=== PATIENT | female | born 1935 | race Caucasian/White ===

== ENCOUNTER 2017-10-13 20:41 | Inpatient (IN) | payer OTHER, BC ==
--- NOTE | 2017-10-13 20:46 | PDOC ---
Rapid Medical Evaluation Time Seen by Provider: 10/13/17 20:45 Medical Evaluation: 10/13/17 20:45 I have performed a brief in-person evaluation of this patient. The patient presents with a chief complaint of: Progressive fatigue, dizziness, malaise, diaphoresis x several months and sent in by Dr Low for concern of recurrence of her NHL which was tx in 2011. Told by Dr Low that "her protein levels are very high" per son. 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 Discharge Disposition - Diagnosis Fatigue Qualifiers: Fatigue type: unspecified Qualified Code(s): R53.83 - Other fatigue - Referrals - Patient Instructions - Post Discharge Activity
[2017-10-13 21:08] LABS: BASO % 0.5 % (0-2.0); EOS % 0.9 % (0-4.5); HEMATOCRIT 28.9 % (32.4-45.2); HEMOGLOBIN 9.6 GM/dL (10.7-15.3); LYMPH % 33.4 % (8-40); MCH 29.2 pg (25.7-33.7); MCHC 33.2 g/dl (32.0-36.0); MEAN CELL VOLUME 87.7 fl (80-96); MEAN PLT VOLUME 7.9 fl (7.5-11.1); MONO % 9.2 % (3.8-10.2); PLATELET COUNT 247 K/MM3 (134-434); WHITE BLOOD COUNT 5.6 K/mm3 (4.0-10.0)
[2017-10-13 21:46] LABS: ALBUMIN 2.7 g/dl (3.4-5.0); ANION GAP 9 (8-16); BILIRUBIN,TOTAL 0.4 mg/dL (0.2-1.0); BLOOD UREA NITROGEN 40 mg/dL (7-18); CALCIUM 9.6 mg/dL (8.5-10.1); CHLORIDE 105 mmol/L (98-107); CO2 23 mmol/L (21-32); CREATININE 1.2 mg/dL (0.55-1.02); GLUCOSE,RANDOM 108 mg/dL (74-106); POTASSIUM 4.5 mmol/L (3.5-5.1); SGOT/AST 17 U/L (15-37); SGPT/ALT 21 U/L (12-78); SODIUM 137 mmol/L (136-145)
[2017-10-13 21:49] LABS: ALK PHOS 75 U/L (45-117)
[2017-10-13 21:52] LABS: LIPASE 207 U/L (73-393); TOT PROT 11.4 g/dl (6.4-8.2)
--- NOTE | 2017-10-13 22:11 | PDOC ---
History of Present Illness - General Chief Complaint: Weakness Stated Complaint: SENT BY PCP Time Seen by Provider: 10/13/17 20:45 History Source: Patient, Family - History of Present Illness Initial Comments: 10/13/17 22:02 82 year old female with PMH non-hodgkin lymphoma presents to ED complaining of lightheadedness, feeling offbalance, fatigue and sweats. She states that these symptoms are similar to her previous symptoms when her non-hodgkin's lymphoma developed. She was sent to ED by her oncologist Dr. Low for elevated protein and concerning symptoms for reoccurence of her non-hodgkin's lymphoma. Oncology, Dr. Low - [phone] Aguilar - [phone] Past History - Past Medical History Allergies/Adverse Reactions: Allergies Allergy/AdvReac Type Severity Reaction Status Date / Time No Known Allergies Allergy Verified 10/13/17 20:49 Cancer: Yes (Lymphoma) COPD: No - Suicide/Smoking/Psychosocial Hx Smoking History: Never smoked Review of Systems - Review of Systems Able to Perform ROS?: Yes Comments:: 10/13/17 22:04 General: admits to sweats, generalized weakness, fatigue. denies fever. HEENT: denies sore throat, rhinorrhea, ear pain. Heart: denies chest pain, palpitations, syncope, lower extremity swelling. Respiratory: denies shortness of breath, cough, sputum production, hematemesis. Abdomen: denies abdominal pain, nausea, vomiting, diarrhea, constipation, blood in stool. : denies dysuria, urinary frequency, hematuria. Musculoskeletal: denies joint pain, muscle pain, joint swelling. Neurological: admits to dizziness and feeling off-balance. denies headache, numbness, tingling. Skin: denies rash, laceration, abrasion. *Physical Exam - Vital Signs Last Vital Signs Temp Pulse Resp BP Pulse Ox 98.4 F 94 H 18 115/77 96 10/13/17 20:45 10/13/17 20:45 10/13/17 20:45 10/13/17 20:45 10/13/17 20:45 - Physical Exam Comments: 10/13/17 22:36 General: awake, alert and oriented X3, no apparent distress HEENT: head is normocephalic, atraumatic. EOMI. PERRLA. Neck: supple without lymphadenopathy Heart: regular rhythm. no murmurs, rubs or gallops. Lungs: clear to auscultation bilaterally. no crackles, rhonchi or wheezing. no stridor. Abdomen: soft, nontender. normal bowel sounds. no rebound, guarding, masses. Extremities: Peripheral pulses intact. No leg edema. Neurological: Alert. Oriented x3. CN 2-12 grossly intact. Moves all four extremities Heart Score/ECG Review - ECG Impressions Comment:: 10/13/17 23:11 Rate 83, regular rhythm, slight left axis, no acute ST changes. ED Treatment Course - LABORATORY CBC & Chemistry Diagram: 10/13/17 20:58 10/13/17 20:58 - ADDITIONAL ORDERS Additional order review: Laboratory Results 10/13/17 20:58 Sodium 137 Potassium 4.5 Chloride 105 Carbon Dioxide 23 Anion Gap 9 BUN 40 H Creatinine 1.2 H Creat Clearance w eGFR 42.80 Random Glucose 108 H Calcium 9.6 Total Bilirubin 0.4 AST 17 ALT 21 Alkaline Phosphatase 75 Creatine Kinase 31 Troponin I < 0.02 Total Protein 11.4 H Albumin 2.7 L Lipase 207 10/13/17 20:58 RBC 3.30 L MCV 87.7 MCHC 33.2 RDW 18.0 H MPV 7.9 Neutrophils % 56.0 Lymphocytes % 33.4 Monocytes % 9.2 Eosinophils % 0.9 Basophils % 0.5 Medical Decision Making - Medical Decision Making 10/13/17 22:[address] Ramos, who is male impersonator for Dr. Low. She requests labwork to be done now. She wants IV fluids now for her decreased creatinine clearance. She states when that improves, she will order CT abdomen, pelvis, chest with contrast. She requests admission to the hospitalist and to place Dr. Low as consult. 10/13/17 22:34 Pt will be admitted. Microblog sent. Awaiting response. 10/13/17 23:05 Initial Vital Signs Temp Pulse Resp BP Pulse Ox 98.4 F 94 H 18 115/77 96 10/13/17 20:45 10/13/17 20:45 10/13/17 20:45 10/13/17 20:45 10/13/17 20:45 Laboratory Results - last 24 hr 10/13/17 10/13/17 20:58 20:58 WBC 5.6 RBC 3.30 L Hgb 9.6 L Hct 28.9 L MCV 87.7 MCH 29.2 MCHC 33.2 RDW 18.0 H Plt Count 247 MPV 7.9 Absolute Neuts (auto) 3.2 Neutrophils % 56.0 Lymphocytes % 33.4 Monocytes % 9.2 Eosinophils % 0.9 Basophils % 0.5 Nucleated RBC % 0 Sodium 137 Potassium 4.5 Chloride 105 Carbon Dioxide 23 Anion Gap 9 BUN 40 H Creatinine 1.2 H Creat Clearance w eGFR 42.80 Random Glucose 108 H Calcium 9.6 Total Bilirubin 0.4 AST 17 ALT 21 Alkaline Phosphatase 75 Creatine Kinase 31 Troponin I < 0.02 Total Protein 11.4 H Albumin 2.7 L Lipase 207 10/13/17 23:18 Spoke with IM resident accepting the patient for Dr. Kapadia. 10/13/17 23:45 Pt reassessed, no complaints. States she does not feel the need to urinate yet. Pending UA sample. 10/13/17 23:55 Pt signed out to attending, Dr. Chowdhury. *DC/Admit/Observation/Transfer Diagnosis at time of Disposition: Fatigue Qualifiers: Fatigue type: unspecified Qualified Code(s): R53.83 - Other fatigue - Discharge Dispostion Condition at time of disposition: Stable Decision to Admit order: Yes - Referrals - Patient Instructions - Post Discharge Activity
[2017-10-13] MEDS ORDERED: SODIUM CHLORIDE 1,000 ML IV STA (22:18)
--- NOTE | 2017-10-13 22:30 | PDOC ---
Attending Attestation - HPI HPI: 10/13/17 23:51 Patient is an 82 year old female with a significant past medical history of non- hodgkin lymphoma, who was sent by oncologist to the ED with complaints of elevated protein levels. Patient reports seeing her oncologist who advised her to come into the ED for further evaluation after discovering she had elevated protein levels. She reports experiencing lightheadedness as well as associated fatigue and increased sweating. Denies chest pain, Sob. Denies nausea, vomiting. Denies fevers, chills. Denies contact with sick individuals, out of state travelling. Denies head trauma, vision changes, loss of consciousness. Denies trauma to affected area. Denies dysuria, hematuria. Denies constipation, diarrhea. Denies any other symptoms. Allergies: None Social history: No smoking. No alcohol. No illicit drugs. Surgical history: None PMD: Dr. Low <Vic Gonzalez - Last Filed: 10/13/17 23:51> - Resident Resident Name: Ilda Sanabria - ED Attending Attestation I have performed the following: I have examined & evaluated the patient, The case was reviewed & discussed with the resident, I agree w/resident's findings & plan, Exceptions are as noted - Physicial Exam PE: 10/14/17 19:14 physical exam*Physical Exam General Appearance: Yes: Appropriately Dressed. No: Apparent Distress, Intoxicated HEENT: positive: EOMI, RAISA, Normal ENT Inspection, Normal Voice, TMs Normal, Pharynx Normal. negative: Pale Conjunctivae, Photophobia, Scleral Icterus (R), Scleral Icterus (L) Neck: positive: Trachea midline, Normal Thyroid, Supple. negative: Tender, Rigid, Carotid bruit, Stridor, Lymphadenopathy (R), Lymphadenopathy (L), Thyromegaly Respiratory/Chest: positive: Lungs Clear, Normal Breath Sounds. negative: Chest Tender, Respiratory Distress, Accessory Muscle Use, Labored Respiration, RES, Crackles, Rales, Rhonchi, Stridor, Wheezing, Dullness Cardiovascular: positive: Regular Rhythm, Regular Rate, S1, S2. negative: Edema , JVD, Murmur, Bradycardia, Tachycardia Vascular Pulses: Dorsalis-Pedis (R): 2+, Doralis-Pedis (L): 2+ Gastrointestinal/Abdominal: positive: Normal Bowel Sounds, Flat, Soft. negative : Tender, Organomegaly, Pulsatile Mass, Increased Bowel Sounds, Decreased BS, Distended, Guarding, Rebound, Hernia, Hepatomegaly, Spleenomegaly Lymphatic: negative: Adenopathy, Tenderness Musculoskeletal: positive: Normal Inspection. negative: CVA Tenderness, Decreased Range of Motion Extremity: positive: Normal Capillary Refill, Normal Inspection, Normal Range of Motion, Pelvis Stable. negative: Tender, Pedal Edema, Swelling, Erythema Integumentary: positive: Normal Color, Dry, Warm. negative: Cyanotic, Erythema , Jaundice, Rash Neurologic: positive: dross puller II-XII NML intact, Fully Oriented, Alert, Normal Mood/ Affect, Motor Strength 5/5. negative: EOM Palsy, Facial Droop, Sensory Deficit - Medical Decision Making 10/14/17 19:15 pt admitted for further evaluation and care <Radames Chowdhury - Last Filed: 10/14/17 19:15>
[2017-10-13 23:37] LABS: LDH 154 U/L (84-246); URIC ACID 4.5 mg/dL (2.6-7.2)
--- NOTE | 2017-10-14 00:24 | PN ---
Teaching Attending Note Name of Resident: Earnest Talley ATTENDING PHYSICIAN STATEMENT I saw and evaluated the patient. I reviewed the resident's note and discussed the case with the resident. I agree with the resident's findings and plan as documented. SUBJECTIVE: Patient is an 82 year old woman with a past medical history of non-hodgkins lymphoma, who was sent by oncologist to the ER with complaints of elevated protein levels. Patient reports seeing her oncologist who advised her to come into the ER for further evaluation after discovering she had elevated protein levels. She reports experiencing gait imbalance as well as associated fatigue and increased sweating. These symptoms emerge only when she is standing and are absent when lying down. She dates her gait abnormality to the time in she got gentamicin for osteomyelitis. Has never had a full workup for her gait problems. OBJECTIVE: Alert and in no acute distress. Vital Signs Period Temp Pulse Resp BP Sys/Francis Pulse Ox Last 24 Hr 98.4 F 94 18 115/77 96 HEENT: No Jaundice, eye redness or discharge, PERRLA, EOMI. Normocephalic, atraumatic. External ears are normal and hearing is grossly intact. No nasal discharge. Neck: Supple, nontender. No palpable adenopathy or thyromegaly. No JVD Chest: Good effort. Clear to auscultation and percussion. Heart: Regular. No S3, rub or murmur Abdomen: Not distended, soft, nontender and no HSM. No rebound or guarding. Normoactive bowel sounds. Ext: Peripheral pulses intact. No leg edema. Skin: Warm and dry. No petechiae, rash or ecchymosis. Neuro: Alert. Oriented x3. CN 2-12 grossly intact. Sensation grossly intact in all four extremities and DTR are symmetric. Abnormal Lab Results 10/13/17 10/13/17 10/13/17 20:58 20:58 23:07 RBC 3.30 L Hgb 9.6 L Hct 28.9 L RDW 18.0 H ESR 108 H BUN 40 H Creatinine 1.2 H Random Glucose 108 H Total Protein 11.4 H Albumin 2.7 L Urine Protein Ur Leukocyte Esterase 10/14/17 00:17 RBC Hgb Hct RDW ESR BUN Creatinine Random Glucose Total Protein Albumin Urine Protein 1+ H Ur Leukocyte Esterase 3+ H ASSESSMENT AND PLAN: 1. Hyperglobulinemia - May signal recurrence of non-hodgkin's lymphoma. Blood sent for serum protein analyses and immunologic studies. Will get a CT scan with contrast of brain, chest, abdomen and pelvis. Though gait abnormality may be indeed due to remote gentamicin ototoxicity, brain CT will exclude any intracranial lesion. Consult PT for gait abnormality and consult her oncologist. 2. SHEFALI - She has risk factors for CKD, but elevated urine SG suggest SHEFALI. Will hydrate her orally and intravenously to correct any underlying dehydration. Once azotemia improves, then she may be able to get contrast CT study. Will consult nephrology and avoid nephrotoxic agents such as NSAIDS, aminoglycosides , and certain alternative medicine products. 3. Hypoalbuminemia - Possibly due to combined effects of malnutrition, proteinuria and inflammation associated with lymphoma. Will ensure adequate dietary protein intake and also consult water proofer. 4. Anemia - May be partly due to chronic inflammation associated with lymphoma. Will do basic anemia work up including serial stool guaiacs, reticulocyte count and iron studies. 5. Pyuria - She is asymptomatic. Will monitor closely but withhold antibiotics at this time. 6. DVT prophylaxis - Heparin 5000u sq tid. 7. Advance directives - Full code
[2017-10-14 00:26] LABS: URINE APPEARANCE SLCLOUDY; URINE BILIRUBIN NEGATIVE (<2.0 mg/dL); URINE COLOR YELLOW; URINE GLUCOSE (UA) NEGATIVE (NEGATIVE); URINE KETONE NEGATIVE (NEGATIVE); URINE NITRITE NEGATIVE (NEGATIVE); URINE UROBILINOGEN NEGATIVE mg/dL (0.2-1.0)
[2017-10-14 00:27] LABS: URINE LEUK ESTERASE 3+ (NEGATIVE); URINE PROTEIN 1+ (NEGATIVE)
[2017-10-14 00:31] LABS: EPI CELLS RARE /HPF (FEW); URINE BACTERIA RARE /hpf (NONE SEEN); URINE HYALINE CAST 17 /lpf; URINE MUCUS RARE
[2017-10-14 01:33] LABS: INR 1.19 (0.82-1.09); PROTHROMBIN TIME (PATIENT) 13.5 SEC (9.7-13.0)
[2017-10-14 01:36] LABS: ACTIVATED PTT 34.6 SECONDS (25.2-36.5)
[2017-10-14] MEDS ORDERED: SODIUM CHLORIDE 1,000 ML IV SCH (02:15)
[2017-10-14] MEDS ORDERED: MECLIZINE HCL 25 MG TABLET (FP) PO PRN (02:23)
[2017-10-14] MEDS: HEPARIN NA (PORCINE) 5,000 UNITS/ML 1ML VIAL SQ SCH ×3 (02:40→17:12)
--- NOTE | 2017-10-14 03:03 | HP ---
CHIEF COMPLAINT:kike PCP: Dr. Aguilar - [phone] HISTORY OF PRESENT ILLNESS: 82 y/o F with PMH non-hodgkin lymphoma presents to ED complaining of lightheadedness, feeling off balance, and fatigue. She states that these symptoms are similar to her previous symptoms when her non-hodgkin's lymphoma developed back in 2003. She was sent to ED by her oncologist Dr. Low for elevated protein and concerning symptoms for reoccurence of her non-hodgkin's lymphoma. For the past couple of months she has been feelig malaise/fatigued, SANTOS, and dizzy although denies any spinning of room sensation. Says she feels better when she lies down and PCP gave her meclizine which has helped. At baseline she feels unstable since 2003 when she had thoracic vertebral osteo and was x w/ gentamycin, at that time she was incidentally dx w/ NHL via bone biopsy and was followed by Dr. Low through her chemo tx in [id number]. Denies any recent fever, chills, CP, abd pain, night sweats, unexplained weight loss, n/v/d, travel, sick contacts. changes in diet, LEWIS , dyplopia, blood in stool, dysuria, hematuria, polyuria. ER course was notable for: (1)1 L NS (2) (3) Recent Travel: PAST MEDICAL HISTORY: Oncology, Dr. Low - [phone] NHL s/p chemo 2013 hypothyroid dx 3-5 yr ago PAST SURGICAL HISTORY: tonillectomy at age 18 Social History: Smoking:none Alcohol:none Drugs: none Family History: Dad had ALS Allergies No Known Allergies Allergy (Verified 10/13/17 20:49) HOME MEDICATIONS: meclizine 25mg qd prn allopurinol 100mg qd synthroid 75mc qd x6d/wk REVIEW OF SYSTEMS Reviewed in HPI PHYSICAL EXAMINATION Vital Signs - 24 hr 10/13/17 20:45 Temperature 98.4 F Pulse Rate 94 H Respiratory 18 Rate Blood Pressure 115/77 O2 Sat by Pulse 96 Oximetry (%) GENERAL: Awake, alert, and fully oriented, in no acute distress. HEAD: Normal with no signs of trauma. EYES: PERRLA, extraocular movements intact, sclera anicteric, conjunctiva clear. No lid lag. EARS, NOSE, THROAT: nares patent, oropharynx clear without exudates. MMM NECK: Normal range of motion, supple without lymphadenopathy, JVD, or masses. no thyroimegaly LUNGS: crackles in L lung base. Port from chemo tx on R side of chest No wheezes, and no crackles. No accessory muscle use. HEART: RRR, normal S1 and S2 without murmur, rub or gallop. ABDOMEN: Soft, NTND +BS, no guarding, no rebound, no masses. No hepatomegaly or splenomegaly. MUSCULOSKELETAL: Normal range of motion at all joints. No bony deformities or tenderness. No CVA tenderness. UPPER EXTREMITIES: 2+ pulses, warm, well-perfused. No cyanosis. No clubbing. No peripheral edema. LOWER EXTREMITIES: 2+ pulses, warm, well-perfused. No calf tenderness. No peripheral edema. NEUROLOGICAL: Cranial nerves II-XII intact. Normal speech. Narrow shuffling gait. neg romberg PSYCHIATRIC: Cooperative. Good eye contact. Appropriate mood and affect. SKIN: Warm, dry, normal turgor, no rashes or lesions noted, normal capillary refill. Laboratory Results - last 24 hr 10/13/17 10/13/17 10/13/17 20:58 20:58 23:07 WBC 5.6 RBC 3.30 L Hgb 9.6 L Hct 28.9 L MCV 87.7 MCH 29.2 MCHC 33.2 RDW 18.0 H Plt Count 247 MPV 7.9 Absolute Neuts (auto) 3.2 Neutrophils % 56.0 Lymphocytes % 33.4 Monocytes % 9.2 Eosinophils % 0.9 Basophils % 0.5 Nucleated RBC % 0 ESR PT with INR 13.50 H INR 1.19 H PTT (Actin FS) 34.6 Sodium 137 Potassium 4.5 Chloride 105 Carbon Dioxide 23 Anion Gap 9 BUN 40 H Creatinine 1.2 H Creat Clearance w eGFR 42.80 Random Glucose 108 H Uric Acid Calcium 9.6 Total Bilirubin 0.4 AST 17 ALT 21 Alkaline Phosphatase 75 LD Total Creatine Kinase 31 Troponin I < 0.02 C-Reactive Protein Total Protein 11.4 H Albumin 2.7 L Lipase 207 Urine Color Urine Appearance Urine pH Ur Specific D Hanis Urine Protein Urine Glucose (UA) Urine Ketones Urine Blood Urine Nitrite Urine Bilirubin Urine Urobilinogen Ur Leukocyte Esterase Urine WBC (Auto) Urine RBC (Auto) Ur Epithelial Cells Urine Bacteria Hyaline Casts Urine Mucus 10/13/17 10/13/17 10/14/17 23:07 23:07 00:17 WBC RBC Hgb Hct MCV MCH MCHC RDW Plt Count MPV Absolute Neuts (auto) Neutrophils % Lymphocytes % Monocytes % Eosinophils % Basophils % Nucleated RBC % ESR 108 H PT with INR INR PTT (Actin FS) Sodium Potassium Chloride Carbon Dioxide Anion Gap BUN Creatinine Creat Clearance w eGFR Random Glucose Uric Acid 4.5 Calcium Total Bilirubin AST ALT Alkaline Phosphatase LD Total 154 Creatine Kinase Troponin I C-Reactive Protein < 0.3 Total Protein Albumin Lipase Urine Color Yellow Urine Appearance Slcloudy Urine pH 5.0 Ur Specific D Hanis 1.018 Urine Protein 1+ H Urine Glucose (UA) Negative Urine Ketones Negative Urine Blood Negative Urine Nitrite Negative Urine Bilirubin Negative Urine Urobilinogen Negative Ur Leukocyte Esterase 3+ H Urine WBC (Auto) 15 Urine RBC (Auto) 1 Ur Epithelial Cells Rare Urine Bacteria Rare Hyaline Casts 17 Urine Mucus Rare EKG - Rate 83, regular rhythm, no acute ST changes. CXR - wnl ASSESSMENT/PLAN: 82 y/o F with PMH non-hodgkin lymphoma presents to ED complaining of lightheadedness, feeling off balance, and fatigue for the past few months, now being sent by her oncologist Dr. Low for elevated protein and concerning symptoms for reoccurence of her non-hodgkin's lymphoma. Hyperglobulinemia - May signal recurrence of non-hodgkin's lymphoma. -Blood sent for serum protein analyses and immunologic studies. -CT scan with contrast of chest, abdomen and pelvis for NHL eval. Will prehydrate w/ IV NS in setting SHEFALI -CT scan w/ contrast to exclude any intracranial lesion to help evaluate gait abnormality, although may be indeed due to remote gentamicin ototoxicity. -Consult PT for gait abnormality -consult oncologist Dr. Low. SHEFALI - She has risk factors for CKD, but elevated urine SG suggest SHEFALI. -hydrate orally and w/ IV NS to correct any underlying dehydration. -Once azotemia improves, then she may be able to get contrast CT study. -consult nephrology and avoid nephrotoxic agents such as NSAIDS, aminoglycosides , etc... Anemia - possibly 2/2 chronic inflammation associated with lymphoma -w/u serial stool guaiacs, reticulocyte count and iron studies. Pyuria - asymptomatic. -monitor and withhold abx at this time. -rpt UA in the am w/ straight cath Hypoalbuminemia - multifactorial, possibly 2/2 combined effects of malnutrition, proteinuria and inflammation associated with lymphoma. -adequate dietary protein intake and also consult hydraulic press tender. #HCM -c/w home meds for pt's chronic medical problems #FEN -IV NS 100cc/hr -replete lytes as needed -regular diet #DVTppx SQH 5000U tid #Dispo -admit to [facility] [place] -Full code Visit type - Emergency Visit Emergency Visit: Yes ED Registration Date: 10/13/17 Care time: The patient presented to the Emergency Department on the above date and was hospitalized for further evaluation of their emergent condition. - New Patient This patient is new to me today: Yes Date on this admission: 10/14/17 - Critical Care Critical Care patient: No Hospitalist Screening - Colonoscopy Questionnaire Colonoscopy Questionnaire: Colonoscopy Questionnaire - Patient: 50 - 75 years old and never had a screening colonoscopy: Unknown History of colon or rectal polyps, or CA: Unknown History of IBD, Crohn's disease or UC: Unknown History of abdominal radiation therapy as a child: Unknown - Relative: 1 with colon or rectal CA, or polyps at age 60 or younger: Unknown Colon or rectal CA diagnosed at age 45 or younger: Unknown Multiple relatives with colon or rectal CA: Unknown - Outcome: Screening Result: Negative Screen
[2017-10-14] MEDS: SODIUM CHLORIDE 1,000 ML IV SCH ×2 (04:16→23:24)
[2017-10-14] MEDS ORDERED: HEPARIN NA (PORCINE) 5,000 UNITS/ML 1ML VIAL ONE (04:19)
[2017-10-14 06:22] LABS: BASO % 0.7 % (0-2.0); EOS % 2.5 % (0-4.5); HEMOGLOBIN 8.2 GM/dL (10.7-15.3); LYMPH % 41.4 % (8-40); MCH 29.9 pg (25.7-33.7); MCHC 34.1 g/dl (32.0-36.0); MEAN CELL VOLUME 87.7 fl (80-96); MEAN PLT VOLUME 7.7 fl (7.5-11.1); MONO % 13.2 % (3.8-10.2); NEUT % 42.2 % (42.8-82.8); PLATELET COUNT 196 K/MM3 (134-434); RBC 2.74 M/mm3 (3.60-5.2); WHITE BLOOD COUNT 4.8 K/mm3 (4.0-10.0)
[2017-10-14 06:50] LABS: ALBUMIN 2.5 g/dl (3.4-5.0); ANION GAP 8 (8-16); BLOOD UREA NITROGEN 37 mg/dL (7-18); CALCIUM 8.6 mg/dL (8.5-10.1); CHLORIDE 109 mmol/L (98-107); CO2 23 mmol/L (21-32); GLUCOSE,RANDOM 87 mg/dL (74-106); MAGNESIUM 2.2 mg/dL (1.8-2.4); POTASSIUM 3.8 mmol/L (3.5-5.1); SODIUM 140 mmol/L (136-145)
[2017-10-14 06:58] LABS: ALK PHOS 64 U/L (45-117); BILIRUBIN,TOTAL 0.3 mg/dL (0.2-1.0); CREATININE 0.9 mg/dL (0.55-1.02); PHOSPHOROUS 3.7 mg/dL (2.5-4.9); SGOT/AST 14 U/L (15-37); SGPT/ALT 17 U/L (12-78); TOT PROT 9.7 g/dl (6.4-8.2)
[2017-10-14] MEDS: LEVOTHYROXINE NA 75 MCG TABLET (FP) PO SCH (07:06)
--- NOTE | 2017-10-14 08:45 | PN ---
Physical Exam: SUBJECTIVE: Patient is a 82 y/o female with the past medical history of NHL s/p chemo (2013 ) and hypothyroidism who presents with light headedness and feelings of fatigued. Dr. Low sent her in to see if her NHL has reoccurred. Patient has no acute complaints. OBJECTIVE: Vital Signs Period Temp Pulse Resp BP Sys/Francis Pulse Ox Last 24 Hr 98 F-98.4 F 73-94 16-18 115-135/75-79 96-100 GENERAL: The patient is awake, alert, and fully oriented, in no acute distress. NECK: no lymphadenopathy EYES: PERRL, extraocular movements intact LUNGS: Breath sounds equal, clear to auscultation bilaterally HEART: Regular rate and rhythm, S1, S2 without murmur, rub or gallop. ABDOMEN: Soft, nontender, nondistended EXTREMITIES: warm, well-perfused, no edema. PSYCH: Normal mood, normal affect. SKIN: Warm, dry, normal turgor, no rashes or lesions noted Laboratory Results - last 24 hr 10/13/17 10/13/17 10/13/17 20:58 20:58 23:07 WBC 5.6 RBC 3.30 L Hgb 9.6 L Hct 28.9 L MCV 87.7 MCH 29.2 MCHC 33.2 RDW 18.0 H Plt Count 247 MPV 7.9 Absolute Neuts (auto) 3.2 Neutrophils % 56.0 Lymphocytes % 33.4 Monocytes % 9.2 Eosinophils % 0.9 Basophils % 0.5 Nucleated RBC % 0 ESR Retic Count PT with INR 13.50 H INR 1.19 H PTT (Actin FS) 34.6 Sodium 137 Potassium 4.5 Chloride 105 Carbon Dioxide 23 Anion Gap 9 BUN 40 H Creatinine 1.2 H Creat Clearance w eGFR 42.80 Random Glucose 108 H Uric Acid Calcium 9.6 Phosphorus Magnesium Ferritin Total Bilirubin 0.4 AST 17 ALT 21 Alkaline Phosphatase 75 LD Total Creatine Kinase 31 Troponin I < 0.02 C-Reactive Protein Total Protein 11.4 H Albumin 2.7 L Lipase 207 Urine Color Urine Appearance Urine pH Ur Specific [place] Urine Protein Urine Glucose (UA) Urine Ketones Urine Blood Urine Nitrite Urine Bilirubin Urine Urobilinogen Ur Leukocyte Esterase Urine WBC (Auto) Urine RBC (Auto) Ur Epithelial Cells Urine Bacteria Hyaline Casts Urine Mucus Blood Type Antibody Screen 10/13/17 10/13/1718 23:07 23:07 00:00 WBC RBC Hgb Hct MCV MCH MCHC RDW Plt Count MPV Absolute Neuts (auto) Neutrophils % Lymphocytes % Monocytes % Eosinophils % Basophils % Nucleated RBC % ESR 108 H Retic Count 0.79 PT with INR INR PTT (Actin FS) Sodium Potassium Chloride Carbon Dioxide Anion Gap BUN Creatinine Creat Clearance w eGFR Random Glucose Uric Acid 4.5 Calcium Phosphorus Magnesium Ferritin Total Bilirubin AST ALT Alkaline Phosphatase LD Total 154 Creatine Kinase Troponin I C-Reactive Protein < 0.3 Total Protein Albumin Lipase Urine Color Urine Appearance Urine pH Ur Specific [place] Urine Protein Urine Glucose (UA) Urine Ketones Urine Blood Urine Nitrite Urine Bilirubin Urine Urobilinogen Ur Leukocyte Esterase Urine WBC (Auto) Urine RBC (Auto) Ur Epithelial Cells Urine Bacteria Hyaline Casts Urine Mucus Blood Type Antibody Screen 10/14/17 10/14/17 10/14/17 00:17 05:53 05:53 WBC 4.8 RBC 2.74 L Hgb 8.2 L Hct 24.0 L D MCV 87.7 MCH 29.9 MCHC 34.1 RDW 18.0 H Plt Count 196 D MPV 7.7 Absolute Neuts (auto) 2.0 Neutrophils % 42.2 L D Lymphocytes % 41.4 H D Monocytes % 13.2 H Eosinophils % 2.5 D Basophils % 0.7 Nucleated RBC % 0 ESR Retic Count PT with INR INR PTT (Actin FS) Sodium 140 Potassium 3.8 Chloride 109 H Carbon Dioxide 23 Anion Gap 8 BUN 37 H Creatinine 0.9 Creat Clearance w eGFR 59.65 Random Glucose 87 Uric Acid Calcium 8.6 Phosphorus 3.7 Magnesium 2.2 Ferritin 14.2 Total Bilirubin 0.3 AST 14 L ALT 17 Alkaline Phosphatase 64 D LD Total Creatine Kinase Troponin I C-Reactive Protein Total Protein 9.7 H Albumin 2.5 L Lipase Urine Color Yellow Urine Appearance Slcloudy Urine pH 5.0 Ur Specific [place] 1.018 Urine Protein 1+ H Urine Glucose (UA) Negative Urine Ketones Negative Urine Blood Negative Urine Nitrite Negative Urine Bilirubin Negative Urine Urobilinogen Negative Ur Leukocyte Esterase 3+ H Urine WBC (Auto) 15 Urine RBC (Auto) 1 Ur Epithelial Cells Rare Urine Bacteria Rare Hyaline Casts 17 Urine Mucus Rare Blood Type Antibody Screen 10/14/17 05:53 WBC RBC Hgb Hct MCV MCH MCHC RDW Plt Count MPV Absolute Neuts (auto) Neutrophils % Lymphocytes % Monocytes % Eosinophils % Basophils % Nucleated RBC % ESR Retic Count PT with INR INR PTT (Actin FS) Sodium Potassium Chloride Carbon Dioxide Anion Gap BUN Creatinine Creat Clearance w eGFR Random Glucose Uric Acid Calcium Phosphorus Magnesium Ferritin Total Bilirubin AST ALT Alkaline Phosphatase LD Total Creatine Kinase Troponin I C-Reactive Protein Total Protein Albumin Lipase Urine Color Urine Appearance Urine pH Ur Specific [place] Urine Protein Urine Glucose (UA) Urine Ketones Urine Blood Urine Nitrite Urine Bilirubin Urine Urobilinogen Ur Leukocyte Esterase Urine WBC (Auto) Urine RBC (Auto) Ur Epithelial Cells Urine Bacteria Hyaline Casts Urine Mucus Blood Type A POSITIVE Antibody Screen Negative Active Medications Generic Name Dose Route Start Last Admin Trade Name Freq PRN Reason Stop Dose Admin Allopurinol 100 mg 10/14/17 10:00 Zyloprim - PO DAILY CAMI Heparin Sodium (Porcine) 5,000 unit 10/14/17 02:30 10/14/17 02:40 Heparin - SQ 5,000 unit Q8H-IV [facility]I Administration Sodium Chloride 1,000 mls @ 100 mls/hr 10/14/17 03:30 10/14/17 04:16 Normal Saline - IV 100 mls/hr ASDIR [facility] Administration Levothyroxine Sodium 75 mcg 10/14/17 07:00 10/14/17 07:06 Synthroid - PO 75 mcg DAILY@0700 [facility] Administration Meclizine HCl 25 mg 10/14/17 02:23 10/14/17 07:06 Antivert - PO 25 mg DAILY PRN Administration VERTIGO ASSESSMENT/PLAN: Patient is a 82 y/o female with the past medical history of NHL s/p chemo (2012 ) and hypothyroidism who presents from Dr. Low for macroglobulinemia. #macroglobulinemia - f/u immunological labs, serum viscosity, protein electropheresis - CT scans non contrast to be taken tomorrow - f/u with Dr. Low - continue Allopurinol - will need bone marrow biopsy - keep well hydrated #shabbir likely prerenal azotemia -continue fluids -monitor BUN/Cr # normocytic anemia - 2/2 to possible lymphoma if infiltrating - monitor Hgb #gait abnormality - f/u PT - possibly 2/2 to gentamycin use for past osteomyletis - continue meclizine #hypothyroidism -continue levothyroxine #DVT ppx - heparin SQ dispo: Visit type - Emergency Visit Emergency Visit: Yes ED Registration Date: 10/13/17 Care time: The patient presented to the Emergency Department on the above date and was hospitalized for further evaluation of their emergent condition. - New Patient This patient is new to me today: Yes Date on this admission: 10/14/17 - Critical Care Critical Care patient: No
[2017-10-14 09:14] LABS: PLATELET ESTIMATE NORMAL
[2017-10-14] MEDS: ALLOPURINOL 100 MG TABLET (FP) PO SCH (09:40)
--- NOTE | 2017-10-14 11:21 | EKG ---
Test Reason : Blood Pressure : / mmHG Vent. Rate : 083 BPM Atrial Rate : 083 BPM P-R Int : 188 ms QRS Dur : 080 ms QT Int : 362 ms P-R-T Axes : 061 -02 050 degrees QTc Int : 425 ms NORMAL SINUS RHYTHM NORMAL ECG Confirmed by MD LATASHA, JEANNETTE (2013) on 10/14/2017 11:21:22 AM Referred By: Confirmed By:JEANNETTE PAGAN MD
--- NOTE | 2017-10-14 14:20 | PN ---
Teaching Attending Note Name of Resident: Nicole Amaral ATTENDING PHYSICIAN STATEMENT I saw and evaluated the patient. I reviewed the resident's note and discussed the case with the resident. I agree with the resident's findings and plan as documented. SUBJECTIVE: No fever or chills. has no abd pain. no PC , no OSB . denies fever or night sweats . denies dysuria OBJECTIVE: NAD, very pleasant and cooperative dry MM. NO LAP inneck . nO JVD CV: RRR, no MRG Lungs: CATB Abd: soft, NT, ND, NL BS, No hepatosplenomegaly Ext: no luis Lymphatic system: No adenopathy in neck , axillary areas, or groins ASSESSMENT AND PLAN: Very pleasant 82 y/o lady with h/o Lymphoma , diagnoses in 2003, s/p chemo in 2012 , and hypothyroidism who was sent By Dr. Low for w/u of elevated proteins . 1- Elevated protein level: need to r/o monoclonal spikes. - follow protein electropheresis - follow Immunoglobulin level - heme consult pending - will d/w heme , the need for Allopurinol 2- H/o Lymphoma, ? Non Hodgkin's. No lymphadenopathy on exam, crow snot have any B symptoms . possibly need CT scans to r/o Lymphadenopathy. Will d/w Dr. Low. - if so, will not perform Ct with contrast today as renal functin need t recover more . possibly tomorrow 3- SHEFALI: likely prerenal azotemia, from volume depletion . has signs of volume depletion on exam . - cont IVF - repeat renal function 4- h/o hyperthyroidism and depression . cont home meds 5- DVT Px
[2017-10-14 17:09] VITALS: BMI 25.9
--- NOTE | 2017-10-14 17:13 | PN ---
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 Managed conservatively, and ultimately required therapy and was treated in [place] with Bendamustina and Rituximab. Presented recently to my office with IgM > 5000, and reciprocal depression of IgG and IgA. Had free kappa/ free lambda ratio elevated in both serum and urine. Had ESR of 130. Picture suggested re-occurence of lymphoma. Has had no fevers, night sweats, or weight loss. Has had dizziness x months. Presented somewhat dehydrated to ER . Will plan for bone marrow, non contrast CT Based upon magnitude of IgM, may require plasmapheresis or other treatment Would obtain non-contrast CT scans and if adenopathy, consider biopsy. Additional problems Possible UTI- check culture Dizziness - would obtain neurology consult
--- NOTE | 2017-10-14 17:37 | CONS ---
DATE OF CONSULTATION: DATE OF DICTATION: 10/14/2017 This is an 82-year-old female well known to me. Initially seen in 2002 for dysproteinemia. 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 No therapy was required. The paraprotein was monitored. In 2013, with progression of the disease, patient was treated in [place] with rituximab and Bendamustine. Patient has been somewhat not compliant and recently presented to my office with progressive increase in paraprotein with an IgM greater than 5000, reciprocal depression of IgG and IgA. In addition, the patient had acute kidney injury, was somewhat dehydrated. The patient also complained of dizziness over the past 6 months; for which she takes meclizine. PAST MEDICAL HISTORY: Includes in 1979, ankle fracture; in 2002, lymphoplasmacytic lymphoma; in 2003, dysproteinemia. In 2003, patient also had osteomyelitis of the spine for which she was treated with gentamicin, developed toxicity and unsteadiness of gait. In 1989, patient had a meniscus tear. Patient had a colonoscopy in 2013. Patient is a nonsmoker, nondrinker. No industrial exposures or intoxicants. ALLERGIES: No known allergies. MEDICINES: Have included meclizine, allopurinol, and Synthroid. REVIEW OF SYSTEMS: No headaches, diplopia, epistaxis, dysphagia, shortness of breath on exertion. No chest pain, palpitations, or reflux. No GI problems of nausea, vomiting, diarrhea, constipation, melena. No dysuria, hematuria, pyuria. No vaginal bleeding. No significant back or bone pain. Some numbness of the fingers. CURRENT PHYSICAL EXAMINATION: Vital Signs: BP 135/72, pulse 95, respiratory 18, temperature 98.6. HEENT: OUMAR. EOM intact. Oropharynx unremarkable. Lungs: Relatively clear. Cardiac: Regular rhythm. Abdomen: Soft. No organomegaly or masses. Extremities: No significant edema. Breasts: No dominant masses. LABORATORY: WBC 4.8, hematocrit 24 after hydration, platelets 196,000; polys 42, lymphs 41, monocytes 13. INR 1.19. PTT 34. Chemistries: Sodium 140, K 38, chloride 109, CO2 of 23, creatinine after hydration 1.2 to 0.9. AST 14, ALT 17, alkaline phosphatase 64, total protein 97. Albumin 2.5, initially 11.4. Urinalysis has 3+ leukocyte esterase. IMPRESSION: An 82-year-old with history of lymphoplasmacytic lymphoma, prior therapy with Bendamustine and rituximab in 2013, presents now with paraprotein elevation with IgM greater than 5000. Free kappa, free lambda ratios in both the serum and urine markedly elevated as well. Patient will be evaluated with CAT scans, bone marrow biopsy. She is dehydrated and will receive IV hydration. She may have a urinary tract infection, and urinalysis culture and sensitivity needs to be obtained. Further recommendations based upon the results of the bone marrow as well as CAT scan evaluations. Viscosity will need be obtained in view of the elevation of IgM. CHAPIS DAWSON M.D. [id number]
[2017-10-15] MEDS: HEPARIN NA (PORCINE) 5,000 UNITS/ML 1ML VIAL SQ SCH ×3 (02:36→17:34)
[2017-10-15] MEDS: SODIUM CHLORIDE 1,000 ML IV SCH ×2 (05:47→14:28)
[2017-10-15] MEDS: LEVOTHYROXINE NA 75 MCG TABLET (FP) PO SCH (06:00)
[2017-10-15 06:20] LABS: SERUM IRON SATURATION 20 % (15-55); TOTAL IRON BINDING CAPACITY 247 ug/dL (250-450); UIBC 198 ug/dL (118-369)
--- NOTE | 2017-10-15 06:49 | PN ---
Physical Exam: SUBJECTIVE: Patient is a 82 y/o female with the past medical history of NHL s/p chemo (2013 ) and hypothyroidism who presents with light headedness and feelings of fatigue. Patient has no acute complaints. OBJECTIVE: Vital Signs Period Temp Pulse Resp BP Sys/Francis Pulse Ox Last 24 Hr 98 F-98.6 F 73-95 16-20 120-135/58-79 98-100 GENERAL: The patient is awake, alert, and fully oriented, in no acute distress. NECK: no lymphadenopathy EYES: PERRL, extraocular movements intact LUNGS: Breath sounds equal, clear to auscultation bilaterally HEART: Regular rate and rhythm, S1, S2 without murmur, rub or gallop. ABDOMEN: Soft, nontender, nondistended EXTREMITIES: warm, well-perfused, no edema. PSYCH: Normal mood, normal affect. SKIN: Warm, dry, normal turgor, no rashes or lesions noted Laboratory Results - last 24 hr 10/14/17 10/14/17 10/14/17 05:53 05:53 05:53 Neutrophils % (Manual) 53.1 Band Neutrophils % 0.0 Lymphocytes % (Manual) 37.1 Monocytes % (Manual) 7 Eosinophils % (Manual) 1.8 Basophils % (Manual) 0.9 Myelocytes % (Man) 0 Promyelocytes % (Man) 0 Blast Cells % (Manual) 0 Nucleated RBC % 0 Metamyelocytes 0 Platelet Estimate Normal Sodium 140 Potassium 3.8 Chloride 109 H Carbon Dioxide 23 Anion Gap 8 BUN 37 H Creatinine 0.9 Creat Clearance w eGFR 59.65 Random Glucose 87 Calcium 8.6 Phosphorus 3.7 Magnesium 2.2 Iron 49 TIBC 247 L Iron Saturation 20 Ferritin 14.2 Total Bilirubin 0.3 AST 14 L ALT 17 Alkaline Phosphatase 64 D Total Protein 9.7 H Albumin 2.5 L Vitamin B12 Blood Type Antibody Screen 10/14/17 10/14/17 10/14/17 05:53 10:28 17:30 Neutrophils % (Manual) Band Neutrophils % Lymphocytes % (Manual) Monocytes % (Manual) Eosinophils % (Manual) Basophils % (Manual) Myelocytes % (Man) Promyelocytes % (Man) Blast Cells % (Manual) Nucleated RBC % Metamyelocytes Platelet Estimate Sodium Potassium Chloride Carbon Dioxide Anion Gap BUN Creatinine Creat Clearance w eGFR Random Glucose Calcium Phosphorus Magnesium Iron TIBC Iron Saturation Ferritin 12.7 Total Bilirubin AST ALT Alkaline Phosphatase Total Protein Albumin Vitamin B12 801 Blood Type A POSITIVE A POSITIVE Antibody Screen Negative Active Medications Generic Name Dose Route Start Last Admin Trade Name Erasmoq PRN Reason Stop Dose Admin Allopurinol 100 mg 10/14/17 10:00 10/14/17 09:40 Zyloprim - PO 100 mg DAILY CAMI Administration Heparin Sodium (Porcine) 5,000 unit 10/14/17 02:30 10/15/17 02:36 Heparin - SQ Not Given Q8H-IV CAMI Sodium Chloride 1,000 mls @ 100 mls/hr 10/14/17 03:30 10/15/17 05:47 Normal Saline - IV Not Given ASDIR CAMI Levothyroxine Sodium 75 mcg 10/14/17 07:00 10/15/17 06:00 Synthroid - PO 75 mcg DAILY@0700 [facility] Administration Lidocaine HCl 100 mg 10/15/17 10:00 Xylocaine 1% NR 10/15/17 10:01 ONCE ONE Meclizine HCl 25 mg 10/14/17 02:23 10/14/17 07:06 Antivert - PO 25 mg DAILY PRN Administration VERTIGO Venlafaxine HCl 75 mg 10/15/17 08:00 Effexor Xr - PO DAILY@0800 [facility] ASSESSMENT/PLAN: Patient is a 82 y/o female with the past medical history of NHL s/p chemo (2012 ) and hypothyroidism who presents from Dr. Low for macroglobulinemia. #macroglobulinemia - f/u immunological labs, serum viscosity, protein electropheresis - CT abd and Chest non contrast: mild mediastinal adenopathy, discuss need for biopsy - f/u with Dr. Low - continue Allopurinol - will need bone marrow biopsy - keep well hydrated - IgM: 89412, IgA : <5, IgG: < 30, m spike pending, blood viscosity pending - f/u Dr. Webster for neuro #shabbir likely prerenal azotemia -continue fluids -monitor BUN/Cr # normocytic anemia - 2/2 to possible lymphoma if infiltrating - monitor Hgb #gait abnormality - f/u PT - possibly 2/2 to gentamycin use for past osteomyletis - continue meclizine #hypothyroidism -continue levothyroxine #DVT ppx - heparin SQ dispo: Visit type - Emergency Visit Emergency Visit: No - New Patient This patient is new to me today: No - Critical Care Critical Care patient: No
[2017-10-15] MEDS ORDERED: LIDOCAINE HCL 1%, 10 MG/ML (20ML VIAL) ONE (07:44)
[2017-10-15 08:31] LABS: HEMATOCRIT 24.9 % (32.4-45.2); HEMOGLOBIN 8.5 GM/dL (10.7-15.3); MCH 30.3 pg (25.7-33.7); MCHC 34.1 g/dl (32.0-36.0); MEAN CELL VOLUME 88.7 fl (80-96); MEAN PLT VOLUME 8.3 fl (7.5-11.1); PLATELET COUNT 205 K/MM3 (134-434); RBC 2.81 M/mm3 (3.60-5.2); RDW 18.5 % (11.6-15.6); WHITE BLOOD COUNT 4.4 K/mm3 (4.0-10.0)
[2017-10-15 08:34] LABS: IGA IMMUNOGLOBULIN <5 mg/dL (64-422); IGG IMMUNOGLOBULIN <30 mg/dL (700-1600)
[2017-10-15 08:48] LABS: ANION GAP 7 (8-16); BLOOD UREA NITROGEN 28 mg/dL (7-18); CALCIUM 8.2 mg/dL (8.5-10.1); CHLORIDE 111 mmol/L (98-107); CO2 24 mmol/L (21-32); CREATININE 0.9 mg/dL (0.55-1.02); GLUCOSE,RANDOM 82 mg/dL (74-106); POTASSIUM 4.1 mmol/L (3.5-5.1); SODIUM 142 mmol/L (136-145)
[2017-10-15] MEDS ORDERED: PT OWN MED DRAWER 7, Y5N ONE (09:48)
[2017-10-15] MEDS: ALLOPURINOL 100 MG TABLET (FP) PO SCH (09:57)
[2017-10-15] MEDS ORDERED: LIDOCAINE HCL 1%, 10 MG/ML (20ML VIAL) NR ONE (10:00)
[2017-10-15] MEDS: VENLAFAXINE HCL 75 MG E.R. CAPSULES (FP) PO SCH (11:39)
[2017-10-15 14:36] LABS: IGM IMMUNOGLOBULIN 12351 mg/dL (26-217)
--- NOTE | 2017-10-15 15:37 | PN ---
Teaching Attending Note Name of Resident: Nicole Amaral ATTENDING PHYSICIAN STATEMENT I saw and evaluated the patient. I reviewed the resident's note and discussed the case with the resident. I agree with the resident's findings and plan as documented. SUBJECTIVE: Patient is feeling better. No dizziness at this time. OBJECTIVE: Vital Signs Temperature 98.4 F 10/15/17 14:25 Pulse Rate 79 10/15/17 14:25 Respiratory Rate 18 10/15/17 14:25 Blood Pressure 141/76 10/15/17 14:25 O2 Sat by Pulse Oximetry (%) 98 10/14/17 22:00 CBCD WBC 4.4 K/mm3 (4.0-10.0) 10/15/17 06:50 RBC 2.81 M/mm3 (3.60-5.2) L 10/15/17 06:50 Hgb 8.5 GM/dL (10.7-15.3) L 10/15/17 06:50 Hct 24.9 % (32.4-45.2) L 10/15/17 06:50 MCV 88.7 fl (80-96) 10/15/17 06:50 MCHC 34.1 g/dl (32.0-36.0) 10/15/17 06:50 RDW 18.5 % (11.6-15.6) H 10/15/17 06:50 Plt Count 205 K/MM3 (134-434) 10/15/17 06:50 MPV 8.3 fl (7.5-11.1) 10/15/17 06:50 CMP Sodium 142 mmol/L (136-145) 10/15/17 06:50 Potassium 4.1 mmol/L (3.5-5.1) 10/15/17 06:50 Chloride 111 mmol/L (98-107) H 10/15/17 06:50 Carbon Dioxide 24 mmol/L (21-32) 10/15/17 06:50 Anion Gap 7 (8-16) L 10/15/17 06:50 BUN 28 mg/dL (7-18) H 10/15/17 06:50 Creatinine 0.9 mg/dL (0.55-1.02) 10/15/17 06:50 Creat Clearance w eGFR 59.65 (>60) 10/15/17 06:50 Random Glucose 82 mg/dL (74-106) 10/15/17 06:50 Calcium 8.2 mg/dL (8.5-10.1) L 10/15/17 06:50 Total Bilirubin 0.3 mg/dL (0.2-1.0) 10/14/17 05:53 AST 14 U/L (15-37) L 10/14/17 05:53 ALT 17 U/L (12-78) 10/14/17 05:53 Alkaline Phosphatase 64 U/L (45-117) D 10/14/17 05:53 Total Protein 9.7 g/dl (6.4-8.2) H 10/14/17 05:53 Albumin 2.5 g/dl (3.4-5.0) L 10/14/17 05:53 CARDIAC ENZYMES Creatine Kinase 31 IU/L (26-192) 10/13/17 20:58 Troponin I < 0.02 ng/ml (0.00-0.05) 10/13/17 20:58 Current Medications Generic Name Dose Route Start Last Admin Trade Name Erasmoq PRN Reason Stop Dose Admin Allopurinol 100 mg 10/14/17 10:00 10/15/17 09:57 Zyloprim - PO 100 mg DAILY CAMI Administration Heparin Sodium (Porcine) 5,000 unit 10/14/17 02:30 10/15/17 13:04 Heparin - SQ Not Given Q8H-IV CAMI Sodium Chloride 1,000 mls @ 100 mls/hr 10/14/17 03:30 10/15/17 14:28 Normal Saline - IV 100 mls/hr ASDIR [facility] Administration Levothyroxine Sodium 75 mcg 10/14/17 07:00 10/15/17 06:00 Synthroid - PO 75 mcg DAILY@0700 [facility] Administration Meclizine HCl 25 mg 10/14/17 02:23 10/14/17 07:06 Antivert - PO 25 mg DAILY PRN Administration VERTIGO Venlafaxine HCl 75 mg 10/15/17 08:00 10/15/17 11:39 Effexor Xr - PO 75 mg DAILY@0800 [facility] Administration Home Medications Medication Instructions Recorded Allopurinol [Zyloprim -] 100 mg PO DAILY 10/14/17 Cefpodoxime Proxetil [Vantin -] 100 mg PO Q8H 10/14/17 Levothyroxine Sodium [Levo-T] 75 mcg PO DAILY 10/14/17 Meclizine HCl 25 mg PO TID PRN 10/14/17 Venlafaxine HCl [Effexor -] 75 mg PO DAILY 10/14/17 The study is limited without the use of intravenous contrast. Examination of the mediastinum demonstrates enlarged lymph nodes within the pretracheal and precarinal space. The degree of adenopathy has increased since a prior study dated 12/17/2012. There is no evidence of mediastinal masses or fluid collections. The is not enlarged. There is a large hiatal hernia in the retrocardiac space extending into the left hemithorax. The lung reza are free of pulmonary masses, areas of acute consolidation or pleural effusions. Increased interstitial markings diffusely consistent with chronic lung disease. There is also a mild degree of right basilar atelectasis/scarring. The liver and spleen are normal in size and texture with no mass lesions identified within these organs. Gallstones are identified within the gallbladder. The pancreas, adrenal glands and kidneys demonstrate no significant abnormalities. There is no evidence of intra-abdominal or retroperitoneal lymphadenopathy or fluid collections. Examination of the pelvis demonstrates no evidence of pelvic masses, fluid collections or lymphadenopathy. There is no evidence of acute bony abnormalities. Since a prior study of the abdomen and pelvis dated 2012, there has been no significant change. IMPRESSION: 1. Mild mediastinal lymphadenopathy, slightly increased since 12/17/2012. 2. No acute pathology within the chest. 3. Cholelithiasis. 4. No evidence of lymphadenopathy or acute pathology within the abdomen or pelvis. Please see above discussion. Reported By : Jose Ogden MD 10/15/17 [id number] PE: per resident's note ASSESSMENT AND PLAN: Patient is an 82 y/o lady with h/o Lymphoma (diagnosed in 2003, s/p chemo in , and hypothyroidism who was sent By Dr. Low for w/u of elevated proteins . # Elevated protein level: As per Dr. Low's note , patient presented in his office with office with IgM > 5000, and reciprocal depression of IgG and IgA. Had free kappa/ free lambda ratio elevated in both serum and urine. with ESR of 130. suggestive of re-occurence of lymphoma. Bone marrow Bx today as per to r/o Recurrence of Lymphoma - # H/o Lymphoma, Non Hodgkin's. Ct scan as above # SHEFALI: likely prerenal azotemia, improved post IVF. # h/o hyperthyroidism and depression . cont home meds DVT Px :Heparin
--- NOTE | 2017-10-15 20:46 | PROC ---
Bone Marrow Aspiration/Biopsy - Consent Risks and Benefits Explained: Yes Consent on Chart: Yes - Procedure Location: Right Iliac Crest Anesthesia: 1% Lidocaine Specimen: Obtained (N) Patient tolerated procedure: Well with minimal pain Sterile Dressing Applied: Yes (No spicules for aspirate)
--- NOTE | 2017-10-15 20:49 | PN ---
Progress Note (short form) - Note Progress Note: Patient seen and examined No complaints on ROS Last Vital Signs Temp Pulse Resp BP Pulse Ox 98.4 F 79 18 141/76 98 10/15/17 14:25 10/15/17 14:25 10/15/17 14:25 10/15/17 14:25 10/14/17 22:00 HEENT: OUMAR, EOM Intact Cor: RSR, No murmurs, No gallops Lungs: Clear to P&A Abd: Soft, Normal bowel sounds, No organomegaly Ext:No significant edema Skin: No rashes, Integument intact CBC, BMP 10/15/17 06:50 10/15/17 06:50 Current Medications Generic Name Dose Route Start Last Admin Trade Name Freq PRN Reason Stop Dose Admin Allopurinol 100 mg 10/14/17 10:00 10/15/17 09:57 Zyloprim - PO 100 mg DAILY [facility] Administration Heparin Sodium (Porcine) 5,000 unit 10/14/17 02:30 10/15/17 17:34 Heparin - SQ 5,000 unit Q8H-IV [facility] Administration Sodium Chloride 1,000 mls @ 100 mls/hr 10/14/17 03:30 10/15/17 14:28 Normal Saline - IV 100 mls/hr ASDIR [facility] Administration Levothyroxine Sodium 75 mcg 10/14/17 07:00 10/15/17 06:00 Synthroid - PO 75 mcg DAILY@0700 [facility] Administration Meclizine HCl 25 mg 10/14/17 02:23 10/14/17 07:06 Antivert - PO 25 mg DAILY PRN Administration VERTIGO Venlafaxine HCl 75 mg 10/15/17 08:00 10/15/17 11:39 Effexor Xr - PO 75 mg DAILY@0800 [facility] Administration Impression : Macroglobulinemia Anemia CT mediastinal lymphadenopathy Bone marrow aspirate and biopsy Discussed preliminarily with son and Edwar
[2017-10-16] MEDS: SODIUM CHLORIDE 1,000 ML IV SCH ×3 (00:27→11:41)
[2017-10-16] MEDS: HEPARIN NA (PORCINE) 5,000 UNITS/ML 1ML VIAL SQ SCH ×3 (02:15→18:43)
[2017-10-16 06:24] LABS: SERUM IRON SATURATION 18 % (15-55); TOTAL IRON BINDING CAPACITY 239 ug/dL (250-450); UIBC 195 ug/dL (118-369)
[2017-10-16] MEDS: LEVOTHYROXINE NA 75 MCG TABLET (FP) PO SCH (06:26)
--- NOTE | 2017-10-16 07:25 | PN ---
Physical Exam: SUBJECTIVE: Patient is a 82 y/o female with the past medical history of NHL s/p chemo (2013 ) and hypothyroidism who presents with light headedness and feelings of fatigue. Patient has no acute complaints. Pt had bone marrow biopsy yesterday, reports some tenderness to area. OBJECTIVE: Vital Signs Period Temp Pulse Resp BP Sys/Francis Pulse Ox Last 24 Hr 97.4 F-98.5 F 79-97 18-18 133-147/76-79 GENERAL: The patient is awake, alert, and fully oriented, in no acute distress. NECK: no lymphadenopathy EYES: PERRL, extraocular movements intact LUNGS: Breath sounds equal, clear to auscultation bilaterally HEART: Regular rate and rhythm, S1, S2 without murmur, rub or gallop. ABDOMEN: Soft, nontender, nondistended EXTREMITIES: warm, well-perfused, no edema. PSYCH: Normal mood, normal affect. SKIN: Warm, dry, normal turgor, no rashes or lesions noted Laboratory Results - last 24 hr 10/13/17 10/14/17 10/15/17 23:07 17:30 06:50 WBC 4.4 RBC 2.81 L Hgb 8.5 L Hct 24.9 L MCV 88.7 MCH 30.3 MCHC 34.1 RDW 18.5 H Plt Count 205 MPV 8.3 Sodium Potassium Chloride Carbon Dioxide Anion Gap BUN Creatinine Creat Clearance w eGFR Random Glucose Calcium Iron 44 TIBC 239 L Iron Saturation 18 IgG <30 L IgA <5 L IgM 19778 H 10/15/17 06:50 WBC RBC Hgb Hct MCV MCH MCHC RDW Plt Count MPV Sodium 142 Potassium 4.1 Chloride 111 H Carbon Dioxide 24 Anion Gap 7 L BUN 28 H Creatinine 0.9 Creat Clearance w eGFR 59.65 Random Glucose 82 Calcium 8.2 L Iron TIBC Iron Saturation IgG IgA IgM Active Medications Generic Name Dose Route Start Last Admin Trade Name Freq PRN Reason Stop Dose Admin Allopurinol 100 mg 10/14/17 10:00 10/15/17 09:57 Zyloprim - PO 100 mg DAILY CAMI Administration Heparin Sodium (Porcine) 5,000 unit 10/14/17 02:30 10/16/17 02:15 Heparin - SQ Not Given Q8H-IV CAMI Sodium Chloride 1,000 mls @ 100 mls/hr 10/14/17 03:30 10/16/17 03:01 Normal Saline - IV Not Given ASDIR CAMI Levothyroxine Sodium 75 mcg 10/14/17 07:00 10/16/17 06:26 Synthroid - PO 75 mcg DAILY@0700 [facility]I Administration Meclizine HCl 25 mg 10/14/17 02:23 10/14/17 07:06 Antivert - PO 25 mg DAILY PRN Administration VERTIGO Venlafaxine HCl 75 mg 10/15/17 08:00 10/15/17 11:39 Effexor Xr - PO 75 mg DAILY@0800 [facility] Administration ASSESSMENT/PLAN: Patient is a 82 y/o female with the past medical history of NHL s/p chemo (2012 ) and hypothyroidism who presents from Dr. Low for macroglobulinemia. #macroglobulinemia - f/u immunological labs, serum viscosity, protein electropheresis - CT abd and Chest non contrast: mild mediastinal adenopathy, discuss need for biopsy - f/u with Dr. Low - continue Allopurinol - will need bone marrow biopsy - keep well hydrated - IgM: 26933, IgA : <5, IgG: < 30, m spike pending, blood viscosity pending - f/u Dr. Webster for neuro - s/p bone marrow aspiration, f/u studies #shabbir likely prerenal azotemia -continue fluids -monitor BUN/Cr # normocytic anemia - 2/2 to possible lymphoma if infiltrating - monitor Hgb #gait abnormality - f/u PT - possibly 2/2 to gentamycin use for past osteomyletis - continue meclizine #hypothyroidism -continue levothyroxine #DVT ppx - heparin SQ dispo:
[2017-10-16 08:01] LABS: HEMATOCRIT 24.1 % (32.4-45.2); HEMOGLOBIN 8.4 GM/dL (10.7-15.3); MCH 30.5 pg (25.7-33.7); MCHC 34.7 g/dl (32.0-36.0); MEAN CELL VOLUME 87.9 fl (80-96); PLATELET COUNT 192 K/MM3 (134-434); RBC 2.74 M/mm3 (3.60-5.2); RDW 18.1 % (11.6-15.6)
[2017-10-16] MEDS ORDERED: ACETAMINOPHEN 325 MG TABLET (FP) ONE (08:50)
[2017-10-16] MEDS: VENLAFAXINE HCL 75 MG E.R. CAPSULES (FP) PO SCH (08:53)
[2017-10-16] MEDS: ALLOPURINOL 100 MG TABLET (FP) PO SCH (11:43)
[2017-10-16] MEDS ORDERED: ACETAMINOPHEN 325 MG TABLET (FP) PO PRN (12:56)
--- NOTE | 2017-10-16 14:34 | ECHO ---
Name: BENSBURG, BRYANT Exam:Adult Echocardiogram Study Date: 10/16/2017 10:48 AM Reason For Study: possible cardiotoxicity Height: 66 in Weight: 161 lb BSA: 1.8 m2 MMode/2D Measurements & Calculations IVSd: 1.3 cm LA dimension: 3.7 cm LVIDd: 3.5 cm LVIDs: 2.5 cm LVPWd: 1.0 cm LVPWs: 1.1 cm EDV(Teich): 49.3 ml ESV(Teich): 22.9 ml LVOT diam: 3.4 cm Doppler Measurements & Calculations MV E max arthur: 115.0 cm/sec Ao V2 max: 164.2 cm/sec MV A max arthur: 119.4 cm/sec Ao max P.8 mmHg MV E/A: 0.96 AI P1/2t: 244.0 msec MV dec time: 0.17 sec ANOOP(V,D): 8.1 cm2 AI max arthur: 271.5 cm/sec LV V1 max P.3 mmHg AI max P.6 mmHg LV V1 max: 143.6 cm/sec AI dec slope: 325.8 cm/sec2 MR max arthur: 363.4 cm/sec TR max arthur: 280.5 cm/sec MR max P.8 mmHg TR max P.8 mmHg Med Peak E' Arthur: 5.8 cm/sec Med E/e': 19.7 Lat Peak E' Arthur: 7.4 cm/sec Lat E/e': 15.5 Procedure A complete two-dimensional transthoracic echocardiogram was performed (2D, M-mode, Doppler and color flow Doppler). Left Ventricle The left ventricular size, thickness and function are normal. The left ventricular ejection fraction is normal. Ejection Fraction = 60-65%. The left ventricular wall motion is normal. Right Ventricle The right ventricle is normal in size and function. Atria Normal left and right atrial size and function. Mitral Valve There is no mitral regurgitation noted. Tricuspid Valve There is trace tricuspid regurgitation. Right ventricular systolic pressure is normal. Aortic Valve No hemodynamically significant valvular aortic stenosis. No aortic regurgitation is present. Pulmonic Valve There is no pulmonic valvular regurgitation. Great Vessels The aortic root is normal size. Pericardium/Pleura There is no pericardial effusion. Interpretation Summary The left ventricular size, thickness and function are normal. The right ventricle is normal in size and function. There is trace tricuspid regurgitation. MD Jorge Wesley 10/16/2017 02:34 PM
--- NOTE | 2017-10-16 16:06 | CON.NEURO ---
Consult - History of Present Illness History of Present Illness: 82 y/o F with PMH non-hodgkin lymphoma presents to ED complaining of lightheadedness, feeling off balance, and fatigue. She states that these symptoms are similar to her previous symptoms when her non-hodgkin's lymphoma developed back in 2003. She was sent to ED by her oncologist Dr. Low for elevated protein and concerning symptoms for reoccurence of her non-hodgkin's lymphoma. For the past couple of months she has been feeling malaise/fatigued, SANTOS, and dizzy although denies any spinning of room sensation. Says she feels better when she lies down and PCP gave her meclizine which has helped. At baseline she feels unstable since 2003 when she had thoracic vertebral osteo and was x w/ gentamycin, at that time she was incidentally dx w/ NHL via bone biopsy and was followed by Dr. Low through her chemo tx in [id number]. denies LEWIS, tinnitus , focal motro sensory sx; S/p bone marrow biopsy; feels dizziness better today than yesterday. - Alcohol/Substance Use Hx Alcohol Use: No - Smoking History Smoking history: Never smoked Have you smoked in the past 12 months: No Home Medications - Allergies Allergies/Adverse Reactions: Allergies Allergy/AdvReac Type Severity Reaction Status Date / Time No Known Allergies Allergy Verified 10/13/17 20:49 - Home Medications Home Medications: Ambulatory Orders Allopurinol [Zyloprim -] 100 mg PO DAILY 10/14/17 Cefpodoxime Proxetil [Vantin -] 100 mg PO Q8H 10/14/17 Levothyroxine Sodium [Levo-T] 75 mcg PO DAILY 10/14/17 Meclizine HCl 25 mg PO TID PRN 10/14/17 Venlafaxine HCl [Effexor -] 75 mg PO DAILY 10/14/17 Physical Exam-Neuro Vital Signs: Vital Signs Temperature 98.4 F 10/16/17 15:16 Pulse Rate 98 H 10/16/17 15:16 Respiratory Rate 18 10/16/17 15:16 Blood Pressure 138/79 10/16/17 15:16 O2 Sat by Pulse Oximetry (%) 98 10/14/17 22:00 Labs: CBC, BMP 10/16/17 06:20 10/15/17 06:50 INR, PTT INR 1.19 (0.82-1.09) H 10/13/17 23:07 - Neuro Exam Level Of Consciousness: Yes: Alert, Oriented to Person (EOMI, STERLING HALLPIKE (-), no nystagmus, no facial, motor 5/5, no ataxia, prop NL ) Problem List - Problems (1) Peripheral vertigo Code(s): H81.399 - OTHER PERIPHERAL VERTIGO, UNSPECIFIED EAR (2) Fatigue Code(s): R53.83 - OTHER FATIGUE Qualifiers: Fatigue type: unspecified Qualified Code(s): R53.83 - Other fatigue (3) Non-Hodgkin lymphoma Code(s): C85.90 - NON-HODGKIN LYMPHOMA, UNSPECIFIED, UNSPECIFIED SITE Assessment/Plan 82 y/o F with PMH non-hodgkin lymphoma presents to ED complaining of lightheadedness, feeling off balance, and fatigue. She states that these symptoms are similar to her previous symptoms when her non-hodgkin's lymphoma developed back in 2003. She was sent to ED by her oncologist Dr. Low for elevated protein and concerning symptoms for reoccurence of her non-hodgkin's lymphoma. For the past couple of months she has been feeling malaise/fatigued, SANTOS, and dizzy although denies any spinning of room sensation. Says she feels better when she lies down and PCP gave her meclizine which has helped. At baseline she feels unstable since 2003 when she had thoracic vertebral osteo and was x w/ gentamycin, at that time she was incidentally dx w/ NHL via bone biopsy and was followed by Dr. Low through her chemo tx in [id number]. denies LEWIS, tinnitus , focal motor sensory sx; S/p bone marrow biopsy; feels dizziness better today than yesterday. AP : likely peripheral vertigo , appears improved; no central features on exam. chronic residual gentamyacin vestibulopathy (?) neuro stable though if Sx persist in coming weeks then would get MRI BRAIN with FREDDY FU HEM RON/biopsy etc happy to see her as an outpt thanks DR LAWTON
[2017-10-16 16:25] LABS: TOTAL PROTEIN, URINE 145.8 mg/dL (Not Estab.)
[2017-10-16 17:05] VITALS: BP 152/89; PULSE 95; TEMP 98
--- NOTE | 2017-10-16 17:09 | DS ---
Physical Exam: SUBJECTIVE: Patient is a 82 y/o female with the past medical history of NHL s/p chemo (2012 ) and hypothyroidism who presents with light headedness and feelings of fatigue. Patient has no acute complaints. Pt had bone marrow biopsy yesterday, reports some tenderness to area. OBJECTIVE: Vital Signs Period Temp Pulse Resp BP Sys/Francis Pulse Ox Last 24 Hr 97.6 F-98.5 F 81-98 18-18 138-152/79-89 PHYSICAL EXAM GENERAL: The patient is awake, alert, and fully oriented, in no acute distress. NECK: no lymphadenopathy EYES: PERRL, extraocular movements intact LUNGS: Breath sounds equal, clear to auscultation bilaterally HEART: Regular rate and rhythm, S1, S2 without murmur, rub or gallop. ABDOMEN: Soft, nontender, nondistended EXTREMITIES: warm, well-perfused, no edema. PSYCH: Normal mood, normal affect. SKIN: Warm, dry, normal turgor, no rashes or lesions noted LABS Laboratory Results - last 24 hr 10/14/17 10/14/17 10/16/17 00:17 17:30 06:20 WBC 6.0 RBC 2.74 L Hgb 8.4 L Hct 24.1 L MCV 87.9 MCH 30.5 MCHC 34.7 RDW 18.1 H Plt Count 192 MPV 8.0 Iron 44 TIBC 239 L Iron Saturation 18 Tvvbl-7-Btwcrjkfw (%) 0.6 Tokti-8-Wiihhhmqw (%) 2.6 Beta Globulins (%) 8.7 Gamma Globulins (%) 81.3 M-Victor Manuel % 70.4 H Urine Total Protein 145.8 Urine PEP Interpret 6.9 Ref Test Comments HOSPITAL COURSE: Date of Admission:10/13/17 Patient is a 82 y/o female with the past medical history of NHL s/p chemo (2012 ) and hypothyroidism who presents with light headedness and feelings of fatigue. Patient was found to have hyperproteinemia as an outpatient with Dr. Low. Dr. Low sent patient in to be evaluated. Patient had no complaints while admitted. Numerous labs were drawn including immunology,serum viscosity, and protein electrophoresis. Immunology resulted in a IgM of 1235. The following studies will be followed up as an outpatient. CT scan showed mild mediastinal adenopathy. Dr. Low preformed a bone marrow biopsy on patients right buttock. These studies will be followed up as an outpatient. Dr. Webster, the neurologist was consulted to see patient for her light headedness and dizziness. She was cleared for discharge and will follow up with him outpatient. Discussed with patient importance to follow up with Dr. Low outpatient to discuss follow up labs and set up a PET scan. Patient compliant and will be discharged home. Date of Discharge: 10/16/17 Minutes to complete discharge: 34 Discharge Summary Reason For Visit: FATIGUE,NON HODGKIN'S LYMPHOMA Current Active Problems Fatigue (Acute) Lightheadedness (Acute) Peripheral vertigo (Acute) Hypothyroidism (Chronic) Condition: Improved - Instructions Diet, Activity, Other Instructions: You came to the hospital because you were having dizziness and lightheadedness. Dr. Low sent you in because he wanted to have you evaluated for your recurrence of Non Hodgkin's Lymphoma. You had imaging (CT scan) done that showed mild lymphadenopathy in the chest, but at this time there is nothing to do for it. Dr. Low discussed with you that a PET scan is needed and it will be done as an outpatient. Please follow up with Dr. Low to schedule this. Blood work was taken to evaluate markers for Non Hodgkin's Lymphoma. Also a bone marrow biopsy was taken from your right buttock. You will be able to follow up with these results with Dr. Low as an outpatient, please make an appointment with him for next week. You may have some soreness in the area where the biopsy was taken, this will resolve with time. It is okay to shower at this time. Please follow up with the neurologist, Dr. Webster, within one week for your dizziness. Please continue to take your home medications as prescribed. Please follow up with your primary care physician within one week. Please return to the Emergency Room if you have worsening of symptoms, vomiting , diarrhea, chest pain, or shortness of breath. Referrals: Tarun Webster DO [Staff Physician] - 1 Week Chay Low MD [Primary Care Provider] - 1 Week Disposition: HOME - Home Medications Comprehensive Discharge Medication List: Ambulatory Orders Allopurinol [Zyloprim -] 100 mg PO DAILY 10/14/17 Cefpodoxime Proxetil [Vantin -] 100 mg PO Q8H 10/14/17 Levothyroxine Sodium [Levo-T] 75 mcg PO DAILY 10/14/17 Meclizine HCl 25 mg PO TID PRN 10/14/17 Venlafaxine HCl [Effexor -] 75 mg PO DAILY 10/14/17 This patient is new to me today: No Emergency Visit: No Critical Care patient: No - Discharge Referral Referred to [facility] Med [facility].C[facility] No
--- NOTE | 2017-10-16 18:28 | PN ---
Teaching Attending Note Name of Resident: Nicole Amaral ATTENDING PHYSICIAN STATEMENT I saw and evaluated the patient. I reviewed the resident's note and discussed the case with the resident. I agree with the resident's findings and plan as documented. SUBJECTIVE: Patient is no longer feeling dizzy. No fever or chill, no shortness of breath. OBJECTIVE: Vital Signs Temperature 98 F 10/16/17 16:30 Pulse Rate 95 H 10/16/17 16:30 Respiratory Rate 18 10/16/17 16:30 Blood Pressure 152/89 10/16/17 16:30 O2 Sat by Pulse Oximetry (%) 98 10/14/17 22:00 CBCD WBC 6.0 K/mm3 (4.0-10.0) 10/16/17 06:20 RBC 2.74 M/mm3 (3.60-5.2) L 10/16/17 06:20 Hgb 8.4 GM/dL (10.7-15.3) L 10/16/17 06:20 Hct 24.1 % (32.4-45.2) L 10/16/17 06:20 MCV 87.9 fl (80-96) 10/16/17 06:20 MCHC 34.7 g/dl (32.0-36.0) 10/16/17 06:20 RDW 18.1 % (11.6-15.6) H 10/16/17 06:20 Plt Count 192 K/MM3 (134-434) 10/16/17 06:20 MPV 8.0 fl (7.5-11.1) 10/16/17 06:20 CMP Sodium 142 mmol/L (136-145) 10/15/17 06:50 Potassium 4.1 mmol/L (3.5-5.1) 10/15/17 06:50 Chloride 111 mmol/L (98-107) H 10/15/17 06:50 Carbon Dioxide 24 mmol/L (21-32) 10/15/17 06:50 Anion Gap 7 (8-16) L 10/15/17 06:50 BUN 28 mg/dL (7-18) H 10/15/17 06:50 Creatinine 0.9 mg/dL (0.55-1.02) 10/15/17 06:50 Creat Clearance w eGFR 59.65 (>60) 10/15/17 06:50 Random Glucose 82 mg/dL (74-106) 10/15/17 06:50 Calcium 8.2 mg/dL (8.5-10.1) L 10/15/17 06:50 Total Bilirubin 0.3 mg/dL (0.2-1.0) 10/14/17 05:53 AST 14 U/L (15-37) L 10/14/17 05:53 ALT 17 U/L (12-78) 10/14/17 05:53 Alkaline Phosphatase 64 U/L (45-117) D 10/14/17 05:53 Total Protein 9.7 g/dl (6.4-8.2) H 10/14/17 05:53 Albumin 2.5 g/dl (3.4-5.0) L 10/14/17 05:53 CARDIAC ENZYMES Creatine Kinase 31 IU/L (26-192) 10/13/17 20:58 Troponin I < 0.02 ng/ml (0.00-0.05) 10/13/17 20:58 Current Medications Generic Name Dose Route Start Last Admin Trade Name Freq PRN Reason Stop Dose Admin Acetaminophen 650 mg 10/16/17 12:56 Tylenol - PO Q6H PRN PAIN LEVEL 6-10 Allopurinol 100 mg 10/14/17 10:00 10/16/17 11:43 Zyloprim - PO 100 mg DAILY CAMI Administration Heparin Sodium (Porcine) 5,000 unit 10/14/17 02:30 10/16/17 11:43 Heparin - SQ 5,000 unit Q8H-IV CAMI Administration Sodium Chloride 1,000 mls @ 100 mls/hr 10/14/17 03:30 10/16/17 11:41 Normal Saline - IV 100 mls/hr ASDIR CAMI Administration Levothyroxine Sodium 75 mcg 10/14/17 07:00 10/16/17 06:26 Synthroid - PO 75 mcg DAILY@0700 [facility]I Administration Meclizine HCl 25 mg 10/14/17 02:23 10/14/17 07:06 Antivert - PO 25 mg DAILY PRN Administration VERTIGO Venlafaxine HCl 75 mg 10/15/17 08:00 10/16/17 08:53 Effexor Xr - PO 75 mg DAILY@0800 CAMI Administration Home Medications Medication Instructions Recorded Allopurinol [Zyloprim -] 100 mg PO DAILY 10/14/17 Cefpodoxime Proxetil [Vantin -] 100 mg PO Q8H 10/14/17 Levothyroxine Sodium [Levo-T] 75 mcg PO DAILY 10/14/17 Meclizine HCl 25 mg PO TID PRN 10/14/17 Venlafaxine HCl [Effexor -] 75 mg PO DAILY 10/14/17 The study is limited without the use of intravenous contrast. Examination of the mediastinum demonstrates enlarged lymph nodes within the pretracheal and precarinal space. The degree of adenopathy has increased since a prior study dated 12/17/2012. There is no evidence of mediastinal masses or fluid collections. The is not enlarged. There is a large hiatal hernia in the retrocardiac space extending into the left hemithorax. The lung reza are free of pulmonary masses, areas of acute consolidation or pleural effusions. Increased interstitial markings diffusely consistent with chronic lung disease. There is also a mild degree of right basilar atelectasis/scarring. The liver and spleen are normal in size and texture with no mass lesions identified within these organs. Gallstones are identified within the gallbladder. The pancreas, adrenal glands and kidneys demonstrate no significant abnormalities. There is no evidence of intra-abdominal or retroperitoneal lymphadenopathy or fluid collections. Examination of the pelvis demonstrates no evidence of pelvic masses, fluid collections or lymphadenopathy. There is no evidence of acute bony abnormalities. Since a prior study of the abdomen and pelvis dated 2012, there has been no significant change. IMPRESSION: 1. Mild mediastinal lymphadenopathy, slightly increased since 12/17/2012. 2. No acute pathology within the chest. 3. Cholelithiasis. 4. No evidence of lymphadenopathy or acute pathology within the abdomen or pelvis. Please see above discussion. Reported By : Jose Ogden MD 10/15/17 [id number] PE: per resident's note ASSESSMENT AND PLAN: Patient is an 82 y/o lady with h/o Lymphoma (diagnosed in 2003, s/p chemo in , and hypothyroidism who was sent By Dr. Low for w/u of elevated proteins . # Elevated protein level: Patient had the bone Bx done last night , will discharge the patient home, patient will follow with . Patient presented in his office with office with IgM > 5000, and reciprocal depression of IgG and IgA. Had free kappa/ free lambda ratio elevated in both serum and urine. with ESR of 130. suggestive of re-occurence of lymphoma. # Dizziness improved post IV hydration , seen by neurologist , as per neuro patient is stable to be discharged home. and follow with him if symptoms recur # H/o Lymphoma, Non Hodgkin's. Ct scan as above # SHEFALI: likely prerenal azotemia, improved post IVF. # h/o hyperthyroidism and depression . cont home meds Will discharge the patient home with f/u with and
--- NOTE | 2017-10-23 11:07 | PATH ---
Surgical Pathology Report Patient Name: BRYANT VALDES Med. Rec. #: [id number] /Age/Gender: 1935 (Age: 82) / F Account: [id number] Location: [facility] MED/SURG Taken: 10/15/2017 Received: 10/16/2017 Reported: 10/23/2017 Physicians: Fazal Coleman M.D. Specimen(s) Received A: BONE MARROW BIOPSY B: 5 BONE MARROW ASPIRATION SMEARS C: 2 GREEN TOPS Clinical History Dysproteinemia ? Lymphoplasmacytic lymphoma, elevated IgM, ? Waldenstroms Final Diagnosis A.B. 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 HYPERCELLULAR MARROW (40-50%) WITH TRILINEAGE HEMATOPOIESIS. SEE COMMENT. Comment: The differential diagnosis includes Marginal zone lymphoma or Lymphoplasmacytic lymphoma. Molecular studies for MYD88 mutation, commonly seen in Waldenstrom macroglobulinemia, are in process and results with be issued in a separate report. Please also correlate with clinical and other laboratory findings. This case was sent to Dr. Krystian Johnson from [place], [place] ([id number]) the diagnosis above reflects his opinion. Morphology Aspirate Smear: A manual differential is not performed due to a suboptimal aspirate. Cellularity: Suboptimal. Aspiculate, hypocellular, hemodilute, and overstained. Myeloid Precursors: Mostly mature with occasional immature precursors. No increased blasts are seen. Erythroid Precursors: Rare immature precursors. Megakaryocytes: None definitively identified. Lymphoid Cells: Mostly small and mature. Plasma Cells: None definitively identified. Core Biopsy/Clot: Core: Consists of cortical bone, trabecular bone, and cellular marrow space. The cellularity is approximately 40-50%. There are prominent paratrabecular aggregates of small lymphocytes. Occasional plasma cells are interspersed. Residual trilineage hematopoiesis is present. Immunohistochemical stains are performed with appropriate controls. Stains for CD20 and PAX-5 highlight the aggregates of lymphocytes, representing approximately 30-40% of the cellularity. A stain for CD3 highlights scattered small T-cells. A stain for CD138 highlights scattered plasma cells representing approximately 2-3% of the cellularity. Clot: Consists of scattered small islands of hematopoietic precursors. The particles are hypercellular for age. There are scattered aggregates of small lymphocytes with occasional plasma cells. Residual trilineage hematopoiesis is present. C. COMPREHENSIVE FLOW PANEL performed and interpreted at [place], [place] ([id number]) shows the following: INTERPRETATION: Clonal B-cell population with nonspecific immunophenotype and plasmacytic differentiation, 3% of total events, is detected, see comment. MULTIPLE MYELOMA FISH PANEL performed and interpreted at [place], [place] ([id number]) shows the following: INTERPRETATION: No evidence of a deletion RB1 (13q14). No evidence of a deletion of the p53 (17p13) locus. No evidence of duplication of 1q21 is present. No CCND1/IGH t(11;14) translocation is detected. No FHFR3/IGH t(4;14) translocation is detected. No IGH/MAF t(14;16) translocation is detected. See [facility] reports for additional details ([id number], [id number], [id number]) for additional details. Electronically Signed Nicole Fox M.D. Addendum Reported: 10/23/2017 Addendum Diagnosis MYD88 performed and interpreted at [facility] ([id number]) shows the following: RESULTS: MYD88 L265P Mutation: Not Detected Reference range: Not Detected INTERPRETATION: Using a PCR-based pyrosequencing method, the MYD88 L265P mutation is NOT detected. COMMENT: The sensitivity of this assay is approximately 2.5% mutation-bearing cells. Absence of detectable MYD88 L265P mutation does not completely exclude the diagnosis of Waldenstrom macroglobulinemia. Mutations in MYD88 outside of this codon will not be detected by this assay. Dr. Verena Hsu M.D. [facility] [address] [facility] [address] L[employer] Cutter: Elliot Benitez M.D. See [facility] report for additional details ([id number]) Nicole Fox M.D. Addendum Reported: 10/28/2017 Addendum Diagnosis CYTOGENETIC KARYOTYPE ANALYSIS performed and interpreted at [place], [place] ([id number]) TEST RESULTS: 46, XX [20] DIAGNOSTIC INTERPRETATION: Normal Karyotype. Within the limits of the cytogenetics methods, the chromosome had normal G-banding patterns with no evidence of an acquired clonal numerical or structural abnormality. This normal result does not rule out neoplasm. Subtle rearrangements or the presence of an aberrant clone in a low proportion of cells cannot be ruled out. Correlation with other clinical and hematologic data is suggested. Analysis was performed on cells from unstimulated tissue cultures. See [facility] report for additional details ([id number]). Nicole Fox M.D. Gross Description A. Received in formalin, labeled with the patient's name and indicated on the requisition to be a bone marrow biopsy, is a 1 cm in length x 2 cm in diameter gibbons, cylindrical portion of bone. Also received within the same container is a 2.5 x 2.0 x 0.3 cm aggregate of red-brown blood clot. The specimen is entirely submitted in 2 cassettes as follows: 1-bone, following decalcification; 2-clot. B. Received are 5 bone marrow aspiration smear slides. C. Received are 2 green top tubes of blood which are sent to no [facility]. 10/16/2017 [facility]10/16/2017
== END 2017-10-16 20:47 | disposition home or self-care (01) | DRG 841 ==
LOC: JER 20:41 → JERBED 23:19 → J8W 10-14 16:23
PROVIDERS: ADMIT Internal Medicine; ATTEND Internal Medicine
PROC: 07DR3ZX Extraction of Iliac Bone Marrow, Percutaneous Approach, Diagnostic (ICD-10-PCS; principal; 2017-10-15)
DX: C85.90 Non-Hodgkin lymphoma, unspecified, unspecified site (principal); N17.9 Acute kidney failure, unspecified; E88.09 Other disorders of plasma-protein metabolism, not elsewhere classified; F32.9 Major depressive disorder, single episode, unspecified; E03.9 Hypothyroidism, unspecified; H81.399 Other peripheral vertigo, unspecified ear; R26.9 Unspecified abnormalities of gait and mobility; E86.0 Dehydration; D64.9 Anemia, unspecified
CPT/HCPCS: 36415; 71045-TC-FY; 71250-TC; 74176-TC; 80048; 80053; 81003; 81015; 82550; 82607; 82728; 82784; 83540; 83550; 83615; 83690; 83735; 84100; 84155; 84156; 84157; 84165; 84484; 84550; 85025; 85027; 85044; 85610; 85651; 85730; 85810; 86140; 86850; 86900; 86901; 88300-TC; 88305-TC; 88311-TC; 88313-TC; 93005; 93010; 93306-TC; 97116-GP; 97161-GP; 99285-25; J1644; J7030

== ENCOUNTER 2017-11-18 09:52 | Inpatient (IN) | payer OTHER, BC ==
[2017-11-18 11:44] LABS: BASO % 0.6 % (0-2.0); EOS % 0.5 % (0-4.5); HEMATOCRIT 26.1 % (32.4-45.2); HEMOGLOBIN 8.6 GM/dL (10.7-15.3); LYMPH % 18.5 % (8-40); MCH 29.8 pg (25.7-33.7); MCHC 32.8 g/dl (32.0-36.0); MEAN CELL VOLUME 90.7 fl (80-96); MEAN PLT VOLUME 7.8 fl (7.5-11.1); MONO % 11.5 % (3.8-10.2); NEUT % 68.9 % (42.8-82.8); PLATELET COUNT 180 K/MM3 (134-434); RBC 2.88 M/mm3 (3.60-5.2); RDW 19.4 % (11.6-15.6); WHITE BLOOD COUNT 4.7 K/mm3 (4.0-10.0)
[2017-11-18 11:58] LABS: INR 1.27 (0.83-1.09); PROTHROMBIN TIME (PATIENT) 14.3 SEC (9.7-13.0)
[2017-11-18 12:01] LABS: ACTIVATED PTT 32.1 SECONDS (25.2-36.5)
[2017-11-18 12:19] LABS: ALBUMIN 2.6 g/dl (3.4-5.0); ALK PHOS 75 U/L (45-117); ANION GAP 8 (8-16); BILIRUBIN,TOTAL 0.2 mg/dL (0.2-1.0); BLOOD UREA NITROGEN 29 mg/dL (7-18); CALCIUM 9.7 mg/dL (8.5-10.1); CHLORIDE 102 mmol/L (98-107); CO2 26 mmol/L (21-32); CREATININE 1.7 mg/dL (0.55-1.02); GLUCOSE,RANDOM 147 mg/dL (74-106); MAGNESIUM 2.2 mg/dL (1.8-2.4); POTASSIUM 4.4 mmol/L (3.5-5.1); SGOT/AST 16 U/L (15-37); SGPT/ALT 19 U/L (12-78); SODIUM 136 mmol/L (136-145)
[2017-11-18 12:23] LABS: TOT PROT 11.4 g/dl (6.4-8.2)
[2017-11-18 12:24] LABS: BILIRUBIN,DIRECT < 0.2 mg/dL (0.0-0.2)
--- NOTE | 2017-11-18 14:26 | PROC ---
Central Line Insertion Indication: Other Risks and Benefits Explained: Yes Consent on Chart: Yes Central Line: Dialysis Cath, Dual Lumen Anesthesia: 1% Lidocaine Sterile Technique: Yes Ultrasound Guided Assistance: Yes Position: Right Internal Jugular Post Insertion: Yes: Chest X-Ray Ordered Sterile Dressing Applied: Yes
--- NOTE | 2017-11-18 14:50 | HP ---
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 In 2012 , progressive weight loss of 40-50 lb and rise in IgM. Rituxin x 4 without improvement. In 2013 received R-CHOP followed by 2 maintenance doses of R-CVP. IgM decreased from 8740 to 1477. Recent increase in IgM to> 13753 and symptoms of unsteadiness and dizziness. Admitted for pheresis to lower IgM before chemotherapy administration. 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) - Past Surgical History Additional Past Surgical History: meniscus tear -1989 ankle fracture -1979 - Smoking History Smoking history: Never smoked Have you smoked in the past 12 months: No - Alcohol/Substance Use Hx Alcohol Use: No - Social History Usual Living Arrangement: Yes: Alone History of Recent Travel: No Home Medications - Allergies Allergies/Adverse Reactions: Allergies Allergy/AdvReac Type Severity Reaction Status Date / Time No Known Allergies Allergy Verified 10/13/17 20:49 - Home Medications Home Medications: Ambulatory Orders Allopurinol [Zyloprim -] 100 mg PO DAILY 10/14/17 Cefpodoxime Proxetil [Vantin -] 100 mg PO Q8H 10/14/17 Levothyroxine Sodium [Levo-T] 75 mcg PO DAILY 10/14/17 Meclizine HCl 25 mg PO TID PRN 10/14/17 Venlafaxine HCl [Effexor -] 75 mg PO DAILY 10/14/17 Family Disease History - Family Disease History Family Disease History: Other: Son (leukemia) Review of Systems - Review of Systems Constitutional: reports: Unintentional Wgt. Loss, Weakness. denies: Fever Eyes: denies: Blurred Vision, Double Vision, Recent Change in Vision HENT: reports: Hearing Loss. denies: Difficult Swallowing, Ear Pain, Mouth Swelling, Throat Pain, Ringing in Ears Neck: denies: Pain on Movement, Swollen Glands Cardiovascular: reports: Shortness of Breath. denies: Chest Pain Respiratory: reports: SOB, SOB on Exertion Gastrointestinal: denies: Abdominal Pain, Constipation, Diarrhea, Nausea, Vomiting Genitourinary: denies: Burning, Discharge, Dysuria, Flank Pain Breasts: reports: No Symptoms Reported Musculoskeletal: reports: Muscle Weakness Integumentary: reports: No Symptoms Neurological: reports: Dizziness Endocrine: reports: No Symptoms Physical Examination Vital Signs: Vital Signs Temperature 97.8 F 11/18/17 11:22 Pulse Rate 89 11/18/17 11:22 Respiratory Rate 18 11/18/17 11:22 Blood Pressure 137/69 11/18/17 11:22 O2 Sat by Pulse Oximetry (%) Constitutional: Yes: Anxious, Mild Distress Eyes: Yes: PERRL. No: Diplopia, Ptosis, Sclera Icterus HENT: Yes: Atraumatic, Normocephalic. No: Epistaxis, Pharyngeal Erythema, Tonsillar Exudate Neck: Yes: Supple, Trachea Midline. No: Decreased ROM, Lymphadenopathy, Tenderness, Thyromegaly Cardiovascular: Yes: Regular Rate and Rhythm Respiratory: Yes: Regular Gastrointestinal: Yes: Normal Bowel Sounds. No: Hepatomegaly, Splenomegaly Renal/: No: CVA Tenderness - Left, CVA Tenderness - Right Breast(s): Yes: WNL Musculoskeletal: Yes: Back Pain, Muscle Weakness Extremities: No: Calf Tenderness, Cyanosis Edema: No Integumentary: Yes: WNL Neurological: Yes: WNL, Unsteady Gait ...Motor Strength: WNL Psychiatric: Yes: WNL Labs: CBC, BMP 11/18/17 11:20 11/18/17 11:20 Problem List - Problems (1) Non-Hodgkin lymphoma Assessment/Plan: Lymphoplasmacytic lymphoma dating back to 2002. 2012-Rituxin x 4 with systemic symptoms of 40-50 lb weight loss and elevated IgM.--No significant response 2013 R-CHOP x 6 with R-CVP x 2 maintenance with improvement and decrease in IgM to 1400. Recent bone marrow with lymphoplamacytic lymphoma and IgM > 79800. Symptomatic dizziness and unsteadiness. Presents for plasmaphersis prior to chemotherapy . Code(s): C85.90 - NON-HODGKIN LYMPHOMA, UNSPECIFIED, UNSPECIFIED SITE Qualifiers: Non-Hodgkin lymphoma type: non-follicular
--- NOTE | 2017-11-18 16:00 | CONSULT ---
Consultation: REQUESTING PROVIDER: CONSULT REQUEST: We have been asked to medically evaluate this patient for ICU monitoring. HISTORY OF PRESENT ILLNESS: Ms Garza is an 82 y/o female with PMH of non-hodgkin's lymphoma (diagnosed in 2003; underwent chemotherapy in [address] Low), Waldenstrom's Macroglobulineima presents to the hospital for plasmaphoresis. Patients non- hodgkins lymphoma has returned. Patient has been feeling dizzy and unsteady off and on since taking Gentamycin for her osteomyeltitis back in 2003, however , the past month and a half it has become increasingly worse and patient was found to have elevated IgM proteins (<12,000). Patient was here about a month ago for similar complaints and underwent a bone biopsy Patient states that as per Dr. Low, before undergoing any sort of chemotherapy for the NHL the elevated protein needed to be removed through plasmaphoresis. REVIEW OF SYSTEMS: patient denies any chest pain, any shortness of breath nausea or vomiting. patient denies any fevers or chills or any recent travel. endorses dizziness and unsteady gait. PHYSICAL EXAMINATION Vital Signs - 24 hr 11/18/17 11/18/17 11/18/17 10:10 11:22 15:00 Temperature 97.8 F 97.8 F 98.6 F Pulse Rate 89 89 97 H Respiratory 18 18 22 Rate Blood Pressure 137/69 137/69 120/79 O2 Sat by Pulse 99 Oximetry (%) GENERAL: Awake, alert, and fully oriented, in no acute distress. NECK: no JVD appreciated; has a R shiley catheter in place. LUNGS: Breath sounds equal, clear to auscultation bilaterally. No wheezes, and no crackles. No accessory muscle use. HEART: Regular rate and rhythm, normal S1 and S2 without murmur, rub or gallop. ABDOMEN: Soft, nontender, not distended, normoactive bowel sounds, no guarding, no rebound, no masses. No hepatomegaly or splenomegaly. MUSCULOSKELETAL: Normal range of motion at all joints. No bony deformities or tenderness. No CVA tenderness. EXTREMITIES: warm; well -perfused; no clubbing or cyanosis; no LE edema appreciated NEUROLOGICAL: dizziness PSYCHIATRIC: Cooperative. Good eye contact. Appropriate mood and affect. SKIN: Warm, dry, normal turgor, no rashes or lesions noted. Laboratory Results - last 24 hr 11/18/17 11/18/17 11/18/17 11:20 11:20 11:20 WBC 4.7 RBC 2.88 L Hgb 8.6 L Hct 26.1 L MCV 90.7 MCH 29.8 MCHC 32.8 RDW 19.4 H Plt Count 180 MPV 7.8 Absolute Neuts (auto) 3.2 Neutrophils % 68.9 Lymphocytes % 18.5 Monocytes % 11.5 H Eosinophils % 0.5 Basophils % 0.6 Nucleated RBC % 0 PT with INR 14.30 H INR 1.27 H PTT (Actin FS) 32.1 Fibrinogen Sodium 136 Potassium 4.4 Chloride 102 Carbon Dioxide 26 Anion Gap 8 BUN 29 H Creatinine 1.7 H Creat Clearance w eGFR 28.63 Random Glucose 147 H Calcium 9.7 Magnesium 2.2 Total Bilirubin 0.2 Direct Bilirubin < 0.2 AST 16 ALT 19 Alkaline Phosphatase 75 Total Protein 11.4 H Albumin 2.6 L 11/18/17 11:20 WBC RBC Hgb Hct MCV MCH MCHC RDW Plt Count MPV Absolute Neuts (auto) Neutrophils % Lymphocytes % Monocytes % Eosinophils % Basophils % Nucleated RBC % PT with INR INR PTT (Actin FS) Fibrinogen 210.0 L Sodium Potassium Chloride Carbon Dioxide Anion Gap BUN Creatinine Creat Clearance w eGFR Random Glucose Calcium Magnesium Total Bilirubin Direct Bilirubin AST ALT Alkaline Phosphatase Total Protein Albumin ASSESSMENT/PLAN: 82 y/o female with a history of non-hodgkin's lymphoma (diagnosed in 2002; underwent chemo in 2012), waldenstrom's macroglobulinemia, hypothyrodisim presents to the ER with complaints of dizziness and unsteady gait off and on for months, found to have elevated IGM protein due to undergo plasmaphoresis. Heme/ONC: Macroglobulinemia/Non-Hodgkin's lymphoma patient found to have elevated IgM to greater than 12,000 -continue with Allopurinol -undergoing plasmaphoresis tonight at bedside -monitor daily CBC, CMP, proteins -meclizine PRN for vertigo Endo: hypothyroidism -continue with synthroid 75 daily Renal: SHEFALI on CKD Cr is 1.6 -will start fluids post plasmapheresis DVT Prophylaxis:Heparin SQ F/E/N: -starting fluids after plasmapharesis -replete electrolytes when necessary -regular diet dispo:continue ICU monitoring Dispo: We will continue to follow the patient. Thank you for this consultative opportunity. Problem List - Problems (1) Peripheral vertigo Code(s): H81.399 - OTHER PERIPHERAL VERTIGO, UNSPECIFIED EAR (2) Hypothyroidism Code(s): E03.9 - HYPOTHYROIDISM, UNSPECIFIED (3) Non-Hodgkin lymphoma Code(s): C85.90 - NON-HODGKIN LYMPHOMA, UNSPECIFIED, UNSPECIFIED SITE Qualifiers: Non-Hodgkin lymphoma type: non-follicular Visit type - Emergency Visit Emergency Visit: Yes ED Registration Date: 11/18/17 Care time: The patient presented to the Emergency Department on the above date and was hospitalized for further evaluation of their emergent condition. - New Patient This patient is new to me today: Yes Date on this admission: 11/18/17 - Critical Care Critical Care patient: Yes Total Critical Care Time (in minutes): 35 Critical Care Statement: The care of this patient involved high complexity decision making to prevent further life threatening deterioration of the patient 's condition and/or to evaluate & treat vital organ system(s) failure or risk of failure.
[2017-11-18] MEDS: ACETAMINOPHEN 325 MG TABLET (FP) PO SCH (16:52)
[2017-11-18] MEDS: diphenhydrAMINE HCL 25 MG CAPSULE (FP) PO SCH (16:52)
[2017-11-18] MEDS ORDERED: ALBUMIN HUMAN 5% 250 ML IV SOLUTION IVPB SCH (17:00)
[2017-11-18] MEDS: CALCIUM GLUCONATE 10% - 1,000 MG/10 ML VIAL IVPB SCH (17:01)
--- NOTE | 2017-11-18 17:36 | HOSP ---
Physical Examination Vital Signs: Vital Signs Temperature 98.6 F 11/18/17 16:00 Pulse Rate 95 H 11/18/17 16:00 Respiratory Rate 23 11/18/17 16:00 Blood Pressure 134/75 11/18/17 16:00 O2 Sat by Pulse Oximetry (%) 99 11/18/17 15:00 Findings/Remarks: Spoke to Dr. Low who has requested the hospitalist assume care of the patient. Subjective: The patient was seen and examined at the bedside, she is s/p plasmaphoresis catheter placement and will be getting her first plasmapheresis today. She reports having dizziness and unsteadiness Current Medications Generic Name Dose Route Start Last Admin Trade Name Freq PRN Reason Stop Dose Admin Acetaminophen 650 mg 11/18/17 17:00 11/18/17 16:52 Tylenol - PO 11/26/17 17:01 650 mg Q2D@1700 [facility] Administration Albumin Human 150 gm 11/18/17 17:00 11/18/17 16:59 Plasbumin-5 - IVPB 11/26/17 17:01 150 gm Q2D@1700 [facility] Administration Calcium Gluconate 1,000 mg 11/18/17 17:00 11/18/17 17:01 Calcium Gluconate 10% - IVPB 11/28/17 05:01 1,000 mg Q2D@0500,1700 [facility] Administration Diphenhydramine HCl 25 mg 11/18/17 17:00 11/18/17 16:52 Benadryl - PO 11/26/17 17:01 25 mg Q2D@1700 [facility] Administration Objective: Vital Signs Period Temp Pulse Resp BP Sys/Francis Pulse Ox Last 24 Hr 97.8 F-98.6 F 87-97 15-23 120-147/69-79 99 Physical Exam: General: NAD, A&Ox3 Lungs: CTA bilaterally Heart: RRR, S1S2 Abd: Soft, non-tender, non-distended Ext: Warm, well-perfused. 2+ DP/PT bilaterally CBCD WBC 4.7 K/mm3 (4.0-10.0) 11/18/17 11:20 RBC 2.88 M/mm3 (3.60-5.2) L 11/18/17 11:20 Hgb 8.6 GM/dL (10.7-15.3) L 11/18/17 11:20 Hct 26.1 % (32.4-45.2) L 11/18/17 11:20 MCV 90.7 fl (80-96) 11/18/17 11:20 MCHC 32.8 g/dl (32.0-36.0) 11/18/17 11:20 RDW 19.4 % (11.6-15.6) H 11/18/17 11:20 Plt Count 180 K/MM3 (134-434) 11/18/17 11:20 MPV 7.8 fl (7.5-11.1) 11/18/17 11:20 CMP Sodium 136 mmol/L (136-145) 11/18/17 11:20 Potassium 4.4 mmol/L (3.5-5.1) 11/18/17 11:20 Chloride 102 mmol/L (98-107) 11/18/17 11:20 Carbon Dioxide 26 mmol/L (21-32) 11/18/17 11:20 Anion Gap 8 (8-16) 11/18/17 11:20 BUN 29 mg/dL (7-18) H 11/18/17 11:20 Creatinine 1.7 mg/dL (0.55-1.02) H 11/18/17 11:20 Creat Clearance w eGFR 28.63 (>60) 11/18/17 11:20 Random Glucose 147 mg/dL (74-106) H 11/18/17 11:20 Calcium 9.7 mg/dL (8.5-10.1) 11/18/17 11:20 Total Bilirubin 0.2 mg/dL (0.2-1.0) 11/18/17 11:20 AST 16 U/L (15-37) 11/18/17 11:20 ALT 19 U/L (12-78) 11/18/17 11:20 Alkaline Phosphatase 75 U/L (45-117) 11/18/17 11:20 Total Protein 11.4 g/dl (6.4-8.2) H 11/18/17 11:20 Albumin 2.6 g/dl (3.4-5.0) L 11/18/17 11:20 Assessment: This is an 82 year old female with PMHx of non-hodgkin lymphoma ( diagnosed in 2002), Waldenstom's Macroglobulinemia, hypothyroidism, who presented to the hospital for plasmaphoresis after feeling dizzy and unsteady. Plan: 1) Non-hodgkin lymphoma Waldenstom's Macroglobulinemia - Dx 2002, 2011 Rituxin (no significant response), 2012 R-CHOP with R-CVP that decreased IgM to 1400 - Now with IgM >12,000 - For 5 total treatments of plasmapheresis, first treatment today - Continue Allopurinol - Appreciate oncology consult 2) SHEFALI - Cr 1.7 today, previous 1.4 on 11/13 - F/u UA, calculate FeNa - F/u kidney/bladder ultrasound 3) Hypothyroidism - Continue Synthroid 4) Dizziness - Meclizine 5) F/E/N: - Monitor electrolytes - Regular diet 6) Prophylaxis: - Lovenox 40mg sq daily 7) Dispo: - Requires continued ICU care CODE STATUS: FULL CODE Labs: CBC, BMP 11/18/17 11:20 11/18/17 11:20
[2017-11-18] MEDS ORDERED: MECLIZINE HCL 25 MG TABLET (FP) PO PRN (18:37)
[2017-11-18] MEDS: MUPIROCIN 2% TOPICAL OINTMENT FOR DECOLONIZATION NS SCH (22:10)
[2017-11-18] MEDS: CHLORHEXIDINE GLUCONATE 4% CLEANSER FOR DECOLONIZATION TP SCH (22:11)
[2017-11-19] MEDS: LEVOTHYROXINE NA 75 MCG TABLET (FP) PO SCH (07:26)
[2017-11-19] MEDS ORDERED: PT OWN MED DRAWER 7, Y5N ONE ×2 (07:29→09:34)
[2017-11-19 07:57] LABS: BASO % 0.9 % (0-2.0); EOS % 2.3 % (0-4.5); HEMATOCRIT 29.1 % (32.4-45.2); HEMOGLOBIN 9.4 GM/dL (10.7-15.3); LYMPH % 29.5 % (8-40); MCH 29.3 pg (25.7-33.7); MCHC 32.4 g/dl (32.0-36.0); MEAN CELL VOLUME 90.4 fl (80-96); MEAN PLT VOLUME 8.7 fl (7.5-11.1); MONO % 12.1 % (3.8-10.2); NEUT % 55.2 % (42.8-82.8); PLATELET COUNT 138 K/MM3 (134-434); RBC 3.22 M/mm3 (3.60-5.2); RDW 18.7 % (11.6-15.6); WHITE BLOOD COUNT 5.3 K/mm3 (4.0-10.0)
[2017-11-19 08:36] LABS: INR 1.29 (0.83-1.09); PROTHROMBIN TIME (PATIENT) 14.6 SEC (9.7-13.0)
[2017-11-19 08:38] LABS: ACTIVATED PTT 34.3 SECONDS (25.2-36.5)
[2017-11-19 08:43] LABS: ALBUMIN 3.7 g/dl (3.4-5.0); ALK PHOS 41 U/L (45-117); ANION GAP 8 MMOL/L (8-16); BILIRUBIN,TOTAL 0.4 mg/dL (0.2-1.0); BLOOD UREA NITROGEN 29 mg/dL (7-18); CHLORIDE 107 mmol/L (98-107); CO2 25 mmol/L (21-32); CREATININE 1.2 mg/dL (0.55-1.02); GLUCOSE,RANDOM 102 mg/dL (74-106); SGPT/ALT 14 U/L (12-78); SODIUM 140 mmol/L (136-145); TOT PROT 8.1 g/dl (6.4-8.2)
[2017-11-19 08:48] LABS: BILIRUBIN,DIRECT 0.2 mg/dL (0.0-0.2); MAGNESIUM 1.9 mg/dL (1.8-2.4); POTASSIUM 4.7 mmol/L (3.5-5.1); SGOT/AST 16 U/L (15-37)
[2017-11-19 09:11] LABS: URINE APPEARANCE CLEAR; URINE BILIRUBIN NEGATIVE (<2.0 mg/dL); URINE COLOR LTYELLOW; URINE GLUCOSE (UA) NEGATIVE (NEGATIVE); URINE KETONE NEGATIVE (NEGATIVE); URINE LEUK ESTERASE NEGATIVE (NEGATIVE); URINE NITRITE NEGATIVE (NEGATIVE); URINE PROTEIN NEGATIVE (NEGATIVE); URINE UROBILINOGEN NEGATIVE mg/dL (0.2-1.0)
[2017-11-19 09:23] LABS: URINE CREATININE 64.1 mg/dL (20-320)
[2017-11-19] MEDS: VENLAFAXINE HCL 75 MG TABLET PO SCH (09:35)
[2017-11-19] MEDS: ALLOPURINOL 100 MG TABLET (FP) PO SCH (09:36)
[2017-11-19] MEDS: MUPIROCIN 2% TOPICAL OINTMENT FOR DECOLONIZATION NS SCH ×2 (09:41→22:06)
[2017-11-19 09:50] LABS: ANISOCYTOSIS 1+; MACROCYTOSIS 1+; PLATELET ESTIMATE SLT DECREASE
[2017-11-19] MEDS ORDERED: ENOXAPARIN NA (PORCINE) 30 MG/0.3 ML DISP.SYRIN SQ SCH (10:00)
--- NOTE | 2017-11-19 11:19 | PN ---
Teaching Attending Note Name of Resident: Luann Peoples ATTENDING PHYSICIAN STATEMENT I saw and evaluated the patient. I reviewed the resident's note and discussed the case with the resident. I agree with the resident's findings and plan as documented. SUBJECTIVE: Pt seen and examined in the ICU. Tolerated plasmapharesis yesterday. Feels better today, denies further dizziness. No shortness of breath or chest pain. OBJECTIVE: Vital Signs Period Temp Pulse Resp BP Sys/Francis Pulse Ox Last 24 Hr 97.8 F-99 F 74-97 15-23 101-147/48-79 98-99 Intake & Output 11/16/17 11/17/17 11/18/17 11/19/17 23:59 23:59 23:59 23:59 Intake Total 200 Balance 200 Weight 64.592 kg Gen: NAD at rest Heart: RRR Lung: decreased breath sounds at the bases Abd: soft, nontender Ext: no edema CBC, BMP 11/19/17 06:30 11/19/17 06:30 Active Medications Acetaminophen (Tylenol -) 650 mg PO Q2D@1700 [facility] Stop: 11/26/17 17:01 Last Admin: 11/18/17 16:52 Dose: 650 mg Albumin Human (Plasbumin-5 -) 150 gm IVPB Q2D@1700 [facility] Stop: 11/26/17 17:01 Last Admin: 11/18/17 16:59 Dose: 150 gm Allopurinol (Zyloprim -) 100 mg PO DAILY [facility] Last Admin: 11/19/17 09:36 Dose: 100 mg Calcium Gluconate (Calcium Gluconate 10% -) 1,000 mg IVPB Q2D@0500,1700 [facility] Stop: 11/28/17 05:01 Last Admin: 11/18/17 17:01 Dose: 1,000 mg Chlorhexidine Gluconate (Hibiclens For Decolonization -) 1 applic TP HS [facility] Last Admin: 11/18/17 22:11 Dose: 1 applic Diphenhydramine HCl (Benadryl -) 25 mg PO Q2D@1700 [facility] Stop: 11/26/17 17:01 Last Admin: 11/18/17 16:52 Dose: 25 mg Levothyroxine Sodium (Synthroid -) 75 mcg PO DAILY@0700 [facility] Last Admin: 11/19/17 07:26 Dose: 75 mcg Meclizine HCl (Antivert -) 25 mg PO TID PRN PRN Reason: VERTIGO Mupirocin (Bactroban Ointment (For Decolonization) -) 1 applic NS BID [facility] Stop: 11/23/17 21:59 Last Admin: 11/19/17 09:41 Dose: 1 applic Venlafaxine HCl (Effexor -) 75 mg PO DAILY@0800 [facility] Last Admin: 11/19/17 09:35 Dose: 75 mg ASSESSMENT AND PLAN: Non-Hodgkin's Lymphoma Waldenstrom's Macroglobulinemia Acute Kidney Injury Hypothyroidism - plasmaphoresis per heme/onc - monitor lytes - monitor blood viscosity - monitor urine output, creatinine - PO as tolerated - DVT prophylaxis
--- NOTE | 2017-11-19 11:29 | PN ---
Physical Exam: SUBJECTIVE: Patient seen and examined at bedside. patient tolerated plasmapheresis well last night; only complaining of soreness where the shiley catheter is in place near the right IJ. she states her dizziness is much improved; she denies any CP/SOB/N/V. OBJECTIVE: Vital Signs Period Temp Pulse Resp BP Sys/Francis Pulse Ox Last 24 Hr 98.3 F-99 F 74-97 15-23 101-147/48-79 98-99 GENERAL: The patient is awake, alert, and fully oriented, in no acute distress. NECK: Right shiley catheter in place LUNGS: Breath sounds equal, clear to auscultation bilaterally, no wheezes, no crackles, no accessory muscle use. HEART: Regular rate and rhythm, S1, S2 without murmur, rub or gallop. ABDOMEN: Soft, nontender, nondistended, normoactive bowel sounds, no guarding, no rebound, no hepatosplenomegaly, no masses. EXTREMITIES: 2+ pulses, warm, well-perfused, no edema. NEUROLOGICAL: Cranial nerves II through XII grossly intact. Normal speech, gait not observed. PSYCH: Normal mood, normal affect. SKIN: Warm, dry, normal turgor, no rashes or lesions noted Laboratory Results - last 24 hr 11/18/17 11/18/17 11/18/17 11:20 11:20 11:20 WBC 4.7 RBC 2.88 L Hgb 8.6 L Hct 26.1 L MCV 90.7 MCH 29.8 MCHC 32.8 RDW 19.4 H Plt Count 180 MPV 7.8 Absolute Neuts (auto) 3.2 Total Counted Neutrophils % 68.9 Neutrophils % (Manual) Lymphocytes % 18.5 Lymphocytes % (Manual) Monocytes % 11.5 H Monocytes % (Manual) Eosinophils % 0.5 Eosinophils % (Manual) Basophils % 0.6 Basophils % (Manual) Nucleated RBC % 0 Platelet Estimate Platelet Comment Anisocytosis Macrocytosis PT with INR 14.30 H INR 1.27 H PTT (Actin FS) 32.1 Fibrinogen Sodium 136 Potassium 4.4 Chloride 102 Carbon Dioxide 26 Anion Gap 8 BUN 29 H Creatinine 1.7 H Creat Clearance w eGFR 28.63 Random Glucose 147 H Calcium 9.7 Magnesium 2.2 Total Bilirubin 0.2 Direct Bilirubin < 0.2 AST 16 ALT 19 Alkaline Phosphatase 75 Total Protein 11.4 H Albumin 2.6 L Urine Color Urine Appearance Urine pH Ur Specific [place] Urine Protein Urine Glucose (UA) Urine Ketones Urine Blood Urine Nitrite Urine Bilirubin Urine Urobilinogen Ur Leukocyte Esterase Ur Random Sodium Urine Creatinine 11/18/17 11/19/17 11/19/17 11:20 06:30 06:30 WBC 5.3 RBC 3.22 L Hgb 9.4 L Hct 29.1 L MCV 90.4 MCH 29.3 MCHC 32.4 RDW 18.7 H Plt Count 138 D MPV 8.7 D Absolute Neuts (auto) 2.9 Total Counted 100 Neutrophils % 55.2 Neutrophils % (Manual) 56.0 Lymphocytes % 29.5 D Lymphocytes % (Manual) 28.0 D Monocytes % 12.1 H Monocytes % (Manual) 10 Eosinophils % 2.3 D Eosinophils % (Manual) 2.0 Basophils % 0.9 Basophils % (Manual) 1.0 Nucleated RBC % 0 Platelet Estimate Slt decrease Platelet Comment Giant platelets Anisocytosis 1+ Macrocytosis 1+ PT with INR 14.60 H INR 1.29 H PTT (Actin FS) 34.3 Fibrinogen 210.0 L Sodium Potassium Chloride Carbon Dioxide Anion Gap BUN Creatinine Creat Clearance w eGFR Random Glucose Calcium Magnesium Total Bilirubin Direct Bilirubin AST ALT Alkaline Phosphatase Total Protein Albumin Urine Color Urine Appearance Urine pH Ur Specific [place] Urine Protein Urine Glucose (UA) Urine Ketones Urine Blood Urine Nitrite Urine Bilirubin Urine Urobilinogen Ur Leukocyte Esterase Ur Random Sodium Urine Creatinine 11/19/17 11/19/17 11/19/17 06:30 07:45 07:45 WBC RBC Hgb Hct MCV MCH MCHC RDW Plt Count MPV Absolute Neuts (auto) Total Counted Neutrophils % Neutrophils % (Manual) Lymphocytes % Lymphocytes % (Manual) Monocytes % Monocytes % (Manual) Eosinophils % Eosinophils % (Manual) Basophils % Basophils % (Manual) Nucleated RBC % Platelet Estimate Platelet Comment Anisocytosis Macrocytosis PT with INR INR PTT (Actin FS) Fibrinogen Sodium 140 Potassium 4.7 Chloride 107 Carbon Dioxide 25 Anion Gap 8 BUN 29 H Creatinine 1.2 H Creat Clearance w eGFR 42.80 Random Glucose 102 Calcium 8.0 L Magnesium 1.9 Total Bilirubin 0.4 Direct Bilirubin 0.2 AST 16 ALT 14 Alkaline Phosphatase 41 L D Total Protein 8.1 D Albumin 3.7 Urine Color Ltyellow Urine Appearance Clear Urine pH 5.0 Ur Specific [place] 1.011 Urine Protein Negative Urine Glucose (UA) Negative Urine Ketones Negative Urine Blood Negative Urine Nitrite Negative Urine Bilirubin Negative Urine Urobilinogen Negative Ur Leukocyte Esterase Negative Ur Random Sodium 60 Urine Creatinine 64.1 Active Medications Generic Name Dose Route Start Last Admin Trade Name Erasmoq PRN Reason Stop Dose Admin Acetaminophen 650 mg 11/18/17 17:00 11/18/17 16:52 Tylenol - PO 11/26/17 17:01 650 mg Q2D@1700 [facility] Administration Albumin Human 150 gm 11/18/17 17:00 11/18/17 16:59 Plasbumin-5 - IVPB 11/26/17 17:01 150 gm Q2D@1700 [facility] Administration Allopurinol 100 mg 11/19/17 10:00 11/19/17 09:36 Zyloprim - PO 100 mg DAILY [facility] Administration Calcium Gluconate 1,000 mg 11/18/17 17:00 11/18/17 17:01 Calcium Gluconate 10% - IVPB 11/28/17 05:01 1,000 mg Q2D@0500,1700 [facility] Administration Chlorhexidine Gluconate 1 applic 11/18/17 22:00 11/18/17 22:11 Hibiclens For Decolonization - TP 1 applic HS [facility] Administration Diphenhydramine HCl 25 mg 11/18/17 17:00 11/18/17 16:52 Benadryl - PO 11/26/17 17:01 25 mg Q2D@1700 [facility] Administration Levothyroxine Sodium 75 mcg 11/19/17 07:00 11/19/17 07:26 Synthroid - PO 75 mcg DAILY@0700 [facility] Administration Meclizine HCl 25 mg 11/18/17 18:37 Antivert - PO TID PRN VERTIGO Mupirocin 1 applic 11/18/17 22:00 11/19/17 09:41 Bactroban Ointment (For Decolonization) - NS 11/23/17 21:59 1 applic BID [facility] Administration Venlafaxine HCl 75 mg 11/19/17 08:00 11/19/17 09:35 Effexor - PO 75 mg DAILY@0800 [facility] Administration ASSESSMENT/PLAN: 82 y/o female with a history of non-hodgkin's lymphoma (diagnosed in 2002; underwent chemo in 2012), waldenstrom's macroglobulinemia, hypothyrodisim presents to the ER with complaints of dizziness and unsteady gait off and on for months, found to have elevated IGM protein due to undergo plasmaphoresis. Heme/Onc: Non-Hodgkin's lymphoma/waldenstrom's macroglobulinemia -patient underwent plasmapheresis yesterday and clinically feels better -going for another round tomorrow? -monitor serum viscosity: goal is 5 -IgG/IgA/IgM pending -monitor CBC -monitor calcium; replete -c/w allopurinol -meclizine PRN for vertigo Hypothyroidsm: -continue with synthroid 75 daily Renal: SHEFALI -Cr trending down to 1.2 from 1.7 today -monitor urine output and Cr -follow up urine studies -follow up renal U/S DVT Prophylaxis:SCD's F/E/N: -not on standing fluids -replete electrolytes when necessary -regular diet dispo: continue monitoring Problem List - Problems (1) Peripheral vertigo Code(s): H81.399 - OTHER PERIPHERAL VERTIGO, UNSPECIFIED EAR (2) Hypothyroidism Code(s): E03.9 - HYPOTHYROIDISM, UNSPECIFIED (3) Non-Hodgkin lymphoma Code(s): C85.90 - NON-HODGKIN LYMPHOMA, UNSPECIFIED, UNSPECIFIED SITE Qualifiers: Non-Hodgkin lymphoma type: non-follicular Visit type - Emergency Visit Emergency Visit: Yes ED Registration Date: 11/18/17 Care time: The patient presented to the Emergency Department on the above date and was hospitalized for further evaluation of their emergent condition. - New Patient This patient is new to me today: No - Critical Care Critical Care patient: Yes Total Critical Care Time (in minutes): 35 Critical Care Statement: The care of this patient involved high complexity decision making to prevent further life threatening deterioration of the patient 's condition and/or to evaluate & treat vital organ system(s) failure or risk of failure.
--- NOTE | 2017-11-19 18:28 | PN ---
Physical Exam: SUBJECTIVE: Patient seen and examined. She has no complaints. She reports dizziness has resolved. OBJECTIVE: Vital Signs Period Temp Pulse Resp BP Sys/Francis Pulse Ox Last 24 Hr 98.3 F-99 F 74-91 15-21 101-125/40-73 98-99 GENERAL: The patient is awake, alert, and fully oriented, in no acute distress. LUNGS: Breath sounds equal, clear to auscultation bilaterally, no wheezes, no crackles, no accessory muscle use. HEART: Regular rate and rhythm, S1, S2 without murmur, rub or gallop. ABDOMEN: Soft, nontender, nondistended, normoactive bowel sounds, no guarding, no rebound, no hepatosplenomegaly, no masses. EXTREMITIES: 2+ pulses, warm, well-perfused, no edema. Laboratory Results - last 24 hr 11/19/17 11/19/17 11/19/17 06:30 06:30 06:30 WBC 5.3 RBC 3.22 L Hgb 9.4 L Hct 29.1 L MCV 90.4 MCH 29.3 MCHC 32.4 RDW 18.7 H Plt Count 138 D MPV 8.7 D Absolute Neuts (auto) 2.9 Total Counted 100 Neutrophils % 55.2 Neutrophils % (Manual) 56.0 Lymphocytes % 29.5 D Lymphocytes % (Manual) 28.0 D Monocytes % 12.1 H Monocytes % (Manual) 10 Eosinophils % 2.3 D Eosinophils % (Manual) 2.0 Basophils % 0.9 Basophils % (Manual) 1.0 Nucleated RBC % 0 Platelet Estimate Slt decrease Platelet Comment Giant platelets Anisocytosis 1+ Macrocytosis 1+ PT with INR 14.60 H INR 1.29 H PTT (Actin FS) 34.3 Fibrinogen Sodium 140 Potassium 4.7 Chloride 107 Carbon Dioxide 25 Anion Gap 8 BUN 29 H Creatinine 1.2 H Creat Clearance w eGFR 42.80 Random Glucose 102 Calcium 8.0 L Magnesium 1.9 Total Bilirubin 0.4 Direct Bilirubin 0.2 AST 16 ALT 14 Alkaline Phosphatase 41 L D Total Protein 8.1 D Albumin 3.7 Urine Color Urine Appearance Urine pH Ur Specific [place] Urine Protein Urine Glucose (UA) Urine Ketones Urine Blood Urine Nitrite Urine Bilirubin Urine Urobilinogen Ur Leukocyte Esterase Ur Random Sodium Urine Creatinine 11/19/17 11/19/17 11/19/17 07:45 07:45 11:30 WBC RBC Hgb Hct MCV MCH MCHC RDW Plt Count MPV Absolute Neuts (auto) Total Counted Neutrophils % Neutrophils % (Manual) Lymphocytes % Lymphocytes % (Manual) Monocytes % Monocytes % (Manual) Eosinophils % Eosinophils % (Manual) Basophils % Basophils % (Manual) Nucleated RBC % Platelet Estimate Platelet Comment Anisocytosis Macrocytosis PT with INR INR PTT (Actin FS) Fibrinogen 149.0 L D Sodium Potassium Chloride Carbon Dioxide Anion Gap BUN Creatinine Creat Clearance w eGFR Random Glucose Calcium Magnesium Total Bilirubin Direct Bilirubin AST ALT Alkaline Phosphatase Total Protein Albumin Urine Color Ltyellow Urine Appearance Clear Urine pH 5.0 Ur Specific [place] 1.011 Urine Protein Negative Urine Glucose (UA) Negative Urine Ketones Negative Urine Blood Negative Urine Nitrite Negative Urine Bilirubin Negative Urine Urobilinogen Negative Ur Leukocyte Esterase Negative Ur Random Sodium 60 Urine Creatinine 64.1 Active Medications Generic Name Dose Route Start Last Admin Trade Name Freq PRN Reason Stop Dose Admin Acetaminophen 650 mg 11/18/17 17:00 11/18/17 16:52 Tylenol - PO 11/26/17 17:01 650 mg Q2D@1700 [facility] Administration Albumin Human 150 gm 11/18/17 17:00 11/18/17 16:59 Plasbumin-5 - IVPB 11/26/17 17:01 150 gm Q2D@1700 [facility] Administration Allopurinol 100 mg 11/19/17 10:00 11/19/17 09:36 Zyloprim - PO 100 mg DAILY [facility] Administration Calcium Gluconate 1,000 mg 11/18/17 17:00 11/18/17 17:01 Calcium Gluconate 10% - IVPB 11/28/17 05:01 1,000 mg Q2D@0500,1700 [facility] Administration Chlorhexidine Gluconate 1 applic 11/18/17 22:00 11/18/17 22:11 Hibiclens For Decolonization - TP 1 applic HS [facility] Administration Diphenhydramine HCl 25 mg 11/18/17 17:00 11/18/17 16:52 Benadryl - PO 11/26/17 17:01 25 mg Q2D@1700 [facility] Administration Levothyroxine Sodium 75 mcg 11/19/17 07:00 11/19/17 07:26 Synthroid - PO 75 mcg DAILY@0700 [facility] Administration Meclizine HCl 25 mg 11/18/17 18:37 Antivert - PO TID PRN VERTIGO Mupirocin 1 applic 11/18/17 22:00 11/19/17 09:41 Bactroban Ointment (For Decolonization) - NS 11/23/17 21:59 1 applic BID [facility] Administration Venlafaxine HCl 75 mg 11/19/17 08:00 11/19/17 09:35 Effexor - PO 75 mg DAILY@0800 [facility] Administration ASSESSMENT/PLAN: This is an 82 year old woman with a history of NHL, Waldenstom macroglobulinemia , hypothyroidism, who was admitted for plasmapheresis for WM with complaint of dizziness. 1. Waldenstrom macroglobulinemia - Admitted for plasmapheresis every other day x 5 treatments (first was 11/18) - Continue Allopurinol - Plan for chemo after plasmapheresis 2. History of non-Hodgkin lymphoma 3. Acute kidney injury - Improving - Renal US pending 4. Hypothyroidism - Continue Synthroid 5. Dizziness - Improved - Continue Meclizine as needed
--- NOTE | 2017-11-19 21:00 | PN ---
Progress Note (short form) - Note Progress Note: Patient seen and examined Dizziness improved Good day for patient Quite effervescent Last Vital Signs Temp Pulse Resp BP Pulse Ox 99.1 F 91 H 21 106/46 98 11/19/17 20:00 11/19/17 20:00 11/19/17 20:00 11/19/17 20:00 11/19/17 09:00 HEENT: OUMAR, EOM Intact Oropharynx: No thrush, No mucositis Neck: Supple Nodes: Without adenopathy Breasts: Without masses Cor: RSR, No murmurs, No gallops Lungs: Clear to P&A Abd: Soft, Normal bowel sounds, No organomegaly Ext:No significant edema Skin: No rashes, Integument intact CBC, BMP 11/19/17 06:30 11/19/17 06:30 INR, PTT INR 1.29 (0.83-1.09) H 11/19/17 06:30 Fibrinogen 149.0 mg/dL (238-498) L D 11/19/17 11:30 Current Medications Generic Name Dose Route Start Last Admin Trade Name Fiorella PRN Reason Stop Dose Admin Acetaminophen 650 mg 11/18/17 17:00 11/18/17 16:52 Tylenol - PO 11/26/17 17:01 650 mg Q2D@1700 [facility] Administration Albumin Human 150 gm 11/18/17 17:00 11/18/17 16:59 Plasbumin-5 - IVPB 11/26/17 17:01 150 gm Q2D@1700 [facility] Administration Allopurinol 100 mg 11/19/17 10:00 11/19/17 09:36 Zyloprim - PO 100 mg DAILY [facility] Administration Calcium Gluconate 1,000 mg 11/18/17 17:00 11/18/17 17:01 Calcium Gluconate 10% - IVPB 11/28/17 05:01 1,000 mg Q2D@0500,1700 [facility] Administration Chlorhexidine Gluconate 1 applic 11/18/17 22:00 11/18/17 22:11 Hibiclens For Decolonization - TP 1 applic HS [facility] Administration Diphenhydramine HCl 25 mg 11/18/17 17:00 11/18/17 16:52 Benadryl - PO 11/26/17 17:01 25 mg Q2D@1700 [facility] Administration Levothyroxine Sodium 75 mcg 11/19/17 07:00 11/19/17 07:26 Synthroid - PO 75 mcg DAILY@0700 [facility] Administration Meclizine HCl 25 mg 11/18/17 18:37 Antivert - PO TID PRN VERTIGO Mupirocin 1 applic 11/18/17 22:00 11/19/17 09:41 Bactroban Ointment (For Decolonization) - NS 11/23/17 21:59 1 applic BID [facility] Administration Venlafaxine HCl 75 mg 11/19/17 08:00 11/19/17 09:35 Effexor - PO 75 mg DAILY@0800 [facility] Administration impression: Waldenstrom's macroglobulinemia - s/p plasmapheresis x1 - improved symptoms of dizziness 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
[2017-11-19] MEDS: ENOXAPARIN NA (PORCINE) 40 MG/0.4 ML DISP.SYRIN SQ SCH (22:06)
[2017-11-19] MEDS: CHLORHEXIDINE GLUCONATE 4% CLEANSER FOR DECOLONIZATION TP SCH (22:06)
[2017-11-20] MEDS: CALCIUM GLUCONATE 10% - 1,000 MG/10 ML VIAL IVPB SCH ×2 (04:59→14:51)
[2017-11-20 06:06] LABS: IGA IMMUNOGLOBULIN <5 mg/dL (64-422); IGG IMMUNOGLOBULIN <30 mg/dL (700-1600); IGM IMMUNOGLOBULIN 4057 mg/dL (26-217)
[2017-11-20] MEDS: LEVOTHYROXINE NA 75 MCG TABLET (FP) PO SCH (06:43)
[2017-11-20 06:50] LABS: BASO % 0.8 % (0-2.0); EOS % 2.4 % (0-4.5); HEMATOCRIT 28.2 % (32.4-45.2); HEMOGLOBIN 9.5 GM/dL (10.7-15.3); MCH 30.3 pg (25.7-33.7); MCHC 33.6 g/dl (32.0-36.0); MEAN CELL VOLUME 90.1 fl (80-96); MEAN PLT VOLUME 8.2 fl (7.5-11.1); MONO % 12.7 % (3.8-10.2); NEUT % 43.1 % (42.8-82.8); PLATELET COUNT 144 K/MM3 (134-434); RBC 3.13 M/mm3 (3.60-5.2); RDW 18.7 % (11.6-15.6); WHITE BLOOD COUNT 4.4 K/mm3 (4.0-10.0)
[2017-11-20 07:02] LABS: INR 1.1 (0.83-1.09); PROTHROMBIN TIME (PATIENT) 12.4 SEC (9.7-13.0)
[2017-11-20 07:04] LABS: ACTIVATED PTT 36.4 SECONDS (25.2-36.5)
[2017-11-20 07:11] LABS: ALBUMIN 3.2 g/dl (3.4-5.0); ANION GAP 9 MMOL/L (8-16); BLOOD UREA NITROGEN 31 mg/dL (7-18); CALCIUM 9.1 mg/dL (8.5-10.1); CHLORIDE 109 mmol/L (98-107); CO2 25 mmol/L (21-32); GLUCOSE,RANDOM 87 mg/dL (74-106); MAGNESIUM 1.9 mg/dL (1.8-2.4); POTASSIUM 4.5 mmol/L (3.5-5.1); SGOT/AST 12 U/L (15-37); SODIUM 143 mmol/L (136-145)
[2017-11-20 07:13] LABS: ALK PHOS 48 U/L (45-117); BILIRUBIN,TOTAL 0.3 mg/dL (0.2-1.0); SGPT/ALT 11 U/L (12-78); TOT PROT 8.1 g/dl (6.4-8.2)
[2017-11-20] MEDS: VENLAFAXINE HCL 75 MG TABLET PO SCH (09:00)
[2017-11-20 09:09] LABS: ANISOCYTOSIS 1+; MACROCYTOSIS 0; PLATELET ESTIMATE DECREASED
[2017-11-20] MEDS ORDERED: PT OWN MED DRAWER 7, Y5N ONE (09:41)
[2017-11-20 09:55] LABS: BILIRUBIN,DIRECT < 0.2 mg/dL (0.0-0.2)
[2017-11-20] MEDS: ALLOPURINOL 100 MG TABLET (FP) PO SCH (09:59)
[2017-11-20] MEDS: ENOXAPARIN NA (PORCINE) 40 MG/0.4 ML DISP.SYRIN SQ SCH (09:59)
[2017-11-20] MEDS: MUPIROCIN 2% TOPICAL OINTMENT FOR DECOLONIZATION NS SCH ×2 (10:00→21:27)
--- NOTE | 2017-11-20 10:58 | PN ---
Teaching Attending Note Name of Resident: Luann Peoples ATTENDING PHYSICIAN STATEMENT I saw and evaluated the patient. I reviewed the resident's note and discussed the case with the resident. I agree with the resident's findings and plan as documented. SUBJECTIVE: Pt seen and examined in the ICU. No events overnight. Dizziness resolved. OBJECTIVE: Vital Signs Period Temp Pulse Resp BP Sys/Francis Pulse Ox Last 24 Hr 97.8 F-99.1 F 76-102 16-21 104-156/40-74 98-98 Intake & Output 11/17/17 11/18/17 11/19/17 11/20/17 23:59 23:59 23:59 23:59 Intake Total 200 600 200 Balance 200 600 200 Weight 64.592 kg Gen: NAD at rest Heart: RRR Lung: decreased breath sounds at the bases Abd: soft, nontender Ext: no edema CBC, BMP 11/20/17 05:30 11/20/17 05:30 Active Medications Acetaminophen (Tylenol -) 650 mg PO Q2D@1700 [facility] Stop: 11/26/17 17:01 Last Admin: 11/18/17 16:52 Dose: 650 mg Albumin Human (Plasbumin-5 -) 150 gm IVPB Q2D@1700 [facility] Stop: 11/26/17 17:01 Last Admin: 11/18/17 16:59 Dose: 150 gm Allopurinol (Zyloprim -) 100 mg PO DAILY [facility] Last Admin: 11/20/17 09:59 Dose: 100 mg Calcium Gluconate (Calcium Gluconate 10% -) 1,000 mg IVPB Q2D@0500,1700 [facility] Stop: 11/28/17 05:01 Last Admin: 11/20/17 04:59 Dose: 1,000 mg Chlorhexidine Gluconate (Hibiclens For Decolonization -) 1 applic TP HS [facility] Last Admin: 11/19/17 22:06 Dose: 1 applic Diphenhydramine HCl (Benadryl -) 25 mg PO Q2D@1700 [facility] Stop: 11/26/17 17:01 Last Admin: 11/18/17 16:52 Dose: 25 mg Enoxaparin Sodium (Lovenox -) 40 mg SQ DAILY [facility] Last Admin: 11/20/17 09:59 Dose: 40 mg Levothyroxine Sodium (Synthroid -) 75 mcg PO DAILY@0700 [facility] Last Admin: 11/20/17 06:43 Dose: 75 mcg Meclizine HCl (Antivert -) 25 mg PO TID PRN PRN Reason: VERTIGO Mupirocin (Bactroban Ointment (For Decolonization) -) 1 applic NS BID [facility] Stop: 11/23/17 21:59 Last Admin: 11/20/17 10:00 Dose: 1 applic Venlafaxine HCl (Effexor -) 75 mg PO DAILY@0800 [facility] Last Admin: 11/20/17 09:00 Dose: 75 mg ASSESSMENT AND PLAN: Non-Hodgkin's Lymphoma Waldenstrom's Macroglobulinemia Acute Kidney Injury Hypothyroidism - plasmaphoresis per heme/onc - monitor lytes - monitor blood viscosity - monitor coags, fibrinogen level - monitor urine output, creatinine - PO as tolerated - DVT prophylaxis
--- NOTE | 2017-11-20 11:24 | PN ---
Physical Exam: SUBJECTIVE: Patient seen and examined at bedside. no acute events overnight. patients states she is feeling well and her dizziness is much improved. she is going for another round of plasmapharesis today. she denies any CP/SOB/N/V OBJECTIVE: Vital Signs Period Temp Pulse Resp BP Sys/Francis Pulse Ox Last 24 Hr 97.8 F-99.1 F 76-102 16-21 104-156/40-74 98-98 GENERAL: The patient is awake, alert, and fully oriented, in no acute distress.. LUNGS: Breath sounds equal, clear to auscultation bilaterally, no wheezes, no crackles, no accessory muscle use. HEART: Regular rate and rhythm, S1, S2 without murmur, rub or gallop. ABDOMEN: Soft, nontender, nondistended, normoactive bowel sounds, no guarding, no rebound, no hepatosplenomegaly, no masses. EXTREMITIES: 2+ pulses, warm, well-perfused, no edema. NEUROLOGICAL: Cranial nerves II through XII grossly intact. Normal speech, gait not observed. PSYCH: Normal mood, normal affect. SKIN: Warm, dry, normal turgor, no rashes or lesions noted Laboratory Results - last 24 hr 11/19/17 11/19/17 11/20/17 06:30 11:30 05:30 WBC 4.4 RBC 3.13 L Hgb 9.5 L Hct 28.2 L MCV 90.1 MCH 30.3 MCHC 33.6 RDW 18.7 H Plt Count 144 MPV 8.2 Absolute Neuts (auto) 1.9 Neutrophils % 43.1 D Neutrophils % (Manual) 44.8 Band Neutrophils % 0.0 Lymphocytes % 41.0 H D Lymphocytes % (Manual) 42.7 H D Monocytes % 12.7 H Monocytes % (Manual) 8 Eosinophils % 2.4 Eosinophils % (Manual) 3.1 Basophils % 0.8 Basophils % (Manual) 0.0 Myelocytes % (Man) 0 Promyelocytes % (Man) 0 Blast Cells % (Manual) 0 Nucleated RBC % 0 Metamyelocytes 0 Hypochromia 0 Platelet Estimate Decreased Polychromasia 0 Poikilocytosis 0 Anisocytosis 1+ Microcytosis 1+ Macrocytosis 0 PT with INR INR PTT (Actin FS) Fibrinogen 149.0 L D Sodium Potassium Chloride Carbon Dioxide Anion Gap BUN Creatinine Creat Clearance w eGFR Random Glucose Calcium Phosphorus Magnesium Total Bilirubin Direct Bilirubin AST ALT Alkaline Phosphatase Total Protein Albumin IgG <30 L IgA <5 L IgM 4057 H 11/20/17 11/20/17 05:30 05:30 WBC RBC Hgb Hct MCV MCH MCHC RDW Plt Count MPV Absolute Neuts (auto) Neutrophils % Neutrophils % (Manual) Band Neutrophils % Lymphocytes % Lymphocytes % (Manual) Monocytes % Monocytes % (Manual) Eosinophils % Eosinophils % (Manual) Basophils % Basophils % (Manual) Myelocytes % (Man) Promyelocytes % (Man) Blast Cells % (Manual) Nucleated RBC % Metamyelocytes Hypochromia Platelet Estimate Polychromasia Poikilocytosis Anisocytosis Microcytosis Macrocytosis PT with INR 12.40 INR 1.10 H PTT (Actin FS) 36.4 Fibrinogen Sodium 143 Potassium 4.5 Chloride 109 H Carbon Dioxide 25 Anion Gap 9 BUN 31 H Creatinine 1.0 Creat Clearance w eGFR 52.82 Random Glucose 87 Calcium 9.1 Phosphorus 3.0 Magnesium 1.9 Total Bilirubin 0.3 Direct Bilirubin < 0.2 AST 12 L ALT 11 L Alkaline Phosphatase 48 Total Protein 8.1 Albumin 3.2 L IgG IgA IgM Active Medications Generic Name Dose Route Start Last Admin Trade Name Freq PRN Reason Stop Dose Admin Acetaminophen 650 mg 11/18/17 17:00 11/18/17 16:52 Tylenol - PO 11/26/17 17:01 650 mg Q2D@1700 [facility] Administration Albumin Human 150 gm 11/18/17 17:00 11/18/17 16:59 Plasbumin-5 - IVPB 11/26/17 17:01 150 gm Q2D@1700 [facility] Administration Allopurinol 100 mg 11/19/17 10:00 11/20/17 09:59 Zyloprim - PO 100 mg DAILY [facility] Administration Calcium Gluconate 1,000 mg 11/18/17 17:00 11/20/17 04:59 Calcium Gluconate 10% - IVPB 11/28/17 05:01 1,000 mg Q2D@0500,1700 [facility] Administration Chlorhexidine Gluconate 1 applic 11/18/17 22:00 11/19/17 22:06 Hibiclens For Decolonization - TP 1 applic HS [facility] Administration Diphenhydramine HCl 25 mg 11/18/17 17:00 11/18/17 16:52 Benadryl - PO 08/29/18 17:01 25 mg Q2D@1700 [facility] Administration Enoxaparin Sodium 40 mg 11/19/17 21:15 11/20/17 09:59 Lovenox - SQ 40 mg DAILY [facility] Administration Levothyroxine Sodium 75 mcg 11/19/17 07:00 11/20/17 06:43 Synthroid - PO 75 mcg DAILY@0700 [facility] Administration Meclizine HCl 25 mg 11/18/17 18:37 Antivert - PO TID PRN VERTIGO Mupirocin 1 applic 11/18/17 22:00 11/20/17 10:00 Bactroban Ointment (For Decolonization) - NS 11/23/17 21:59 1 applic BID [facility] Administration Venlafaxine HCl 75 mg 11/19/17 08:00 11/20/17 09:00 Effexor - PO 75 mg DAILY@0800 [facility] Administration ASSESSMENT/PLAN: 82 y/o female with a history of non-hodgkin's lymphoma (diagnosed in 2002; underwent chemo in 2012), waldenstrom's macroglobulinemia, hypothyrodisim presents to the ER with complaints of dizziness and unsteady gait off and on for months, found to have elevated IGM protein due to undergo plasmaphoresis. Heme/Onc: Non-Hodgkin's lymphoma/waldenstroms macroglobulinemia -patient undergoing plasmapharesis #2 today -IgM decreasing -viscosity level pending -c/w allopurinol -monitor CBC -monitor fibrinogen levels Hypothyroidism: -c/w synthroid Renal: SHEFALI -Cr is downtrending to 1.0 -continue monitoring urine output and Cr DVT prophylaxis: lovenox 40 F/E/N: not on standing fluids replete electrolytes when necessary regular diet dispo: continue ICU monitoring Problem List - Problems (1) Peripheral vertigo Code(s): H81.399 - OTHER PERIPHERAL VERTIGO, UNSPECIFIED EAR (2) Hypothyroidism Code(s): E03.9 - HYPOTHYROIDISM, UNSPECIFIED (3) Non-Hodgkin lymphoma Code(s): C85.90 - NON-HODGKIN LYMPHOMA, UNSPECIFIED, UNSPECIFIED SITE Qualifiers: Non-Hodgkin lymphoma type: non-follicular Visit type - Emergency Visit Emergency Visit: Yes ED Registration Date: 11/18/17 Care time: The patient presented to the Emergency Department on the above date and was hospitalized for further evaluation of their emergent condition. - New Patient This patient is new to me today: No - Critical Care Critical Care patient: Yes Total Critical Care Time (in minutes): 35 Critical Care Statement: The care of this patient involved high complexity decision making to prevent further life threatening deterioration of the patient 's condition and/or to evaluate & treat vital organ system(s) failure or risk of failure.
[2017-11-20 12:27] VITALS: BMI 22.8
--- NOTE | 2017-11-20 13:16 | PN ---
Progress Note (short form) - Note Progress Note: Subjective: The patient was seen and examined at the bedside, she reports her dizziness has resolved. For plasmapheresis today Current Medications Generic Name Dose Route Start Last Admin Trade Name Fiorella PRN Reason Stop Dose Admin Acetaminophen 650 mg 11/18/17 17:00 11/18/17 16:52 Tylenol - PO 11/26/17 17:01 650 mg Q2D@1700 [facility] Administration Albumin Human 150 gm 11/18/17 17:00 11/18/17 16:59 Plasbumin-5 - IVPB 11/26/17 17:01 150 gm Q2D@1700 [facility] Administration Allopurinol 100 mg 11/19/17 10:00 11/20/17 09:59 Zyloprim - PO 100 mg DAILY [facility] Administration Calcium Gluconate 1,000 mg 11/18/17 17:00 11/20/17 04:59 Calcium Gluconate 10% - IVPB 11/28/17 05:01 1,000 mg Q2D@0500,1700 [facility] Administration Chlorhexidine Gluconate 1 applic 11/18/17 22:00 11/19/17 22:06 Hibiclens For Decolonization - TP 1 applic HS [facility] Administration Diphenhydramine HCl 25 mg 11/18/17 17:00 11/18/17 16:52 Benadryl - PO 11/26/17 17:01 25 mg Q2D@1700 [facility] Administration Enoxaparin Sodium 40 mg 11/19/17 21:15 11/20/17 09:59 Lovenox - SQ 40 mg DAILY [facility] Administration Levothyroxine Sodium 75 mcg 11/19/17 07:00 11/20/17 06:43 Synthroid - PO 75 mcg DAILY@0700 [facility] Administration Meclizine HCl 25 mg 11/18/17 18:37 Antivert - PO TID PRN VERTIGO Mupirocin 1 applic 11/18/17 22:00 11/20/17 10:00 Bactroban Ointment (For Decolonization) - NS 11/23/17 21:59 1 applic BID [facility] Administration Venlafaxine HCl 75 mg 11/19/17 08:00 11/20/17 09:00 Effexor - PO 75 mg DAILY@0800 [facility] Administration Objective: Vital Signs Period Temp Pulse Resp BP Sys/Francis Pulse Ox Last 24 Hr 97.8 F-99.1 F 76-109 16-21 104-156/40-80 98-98 Physical Exam: General: NAD, A&Ox3 Neck: Right plasmapheresis catheter in place Lungs: CTA bilaterally Heart: RRR, S1S2 Abd: Soft, non-tender. Normoactive bowel sounds CBCD WBC 4.4 K/mm3 (4.0-10.0) 11/20/17 05:30 RBC 3.13 M/mm3 (3.60-5.2) L 11/20/17 05:30 Hgb 9.5 GM/dL (10.7-15.3) L 11/20/17 05:30 Hct 28.2 % (32.4-45.2) L 11/20/17 05:30 MCV 90.1 fl (80-96) 11/20/17 05:30 MCHC 33.6 g/dl (32.0-36.0) 11/20/17 05:30 RDW 18.7 % (11.6-15.6) H 11/20/17 05:30 Plt Count 144 K/MM3 (134-434) 11/20/17 05:30 MPV 8.2 fl (7.5-11.1) 11/20/17 05:30 CMP Sodium 143 mmol/L (136-145) 11/20/17 05:30 Potassium 4.5 mmol/L (3.5-5.1) 11/20/17 05:30 Chloride 109 mmol/L (98-107) H 11/20/17 05:30 Carbon Dioxide 25 mmol/L (21-32) 11/20/17 05:30 Anion Gap 9 MMOL/L (8-16) 11/20/17 05:30 BUN 31 mg/dL (7-18) H 11/20/17 05:30 Creatinine 1.0 mg/dL (0.55-1.02) 11/20/17 05:30 Creat Clearance w eGFR 52.82 (>60) 11/20/17 05:30 Random Glucose 87 mg/dL (74-106) 11/20/17 05:30 Calcium 9.1 mg/dL (8.5-10.1) 11/20/17 05:30 Total Bilirubin 0.3 mg/dL (0.2-1.0) 11/20/17 05:30 AST 12 U/L (15-37) L 11/20/17 05:30 ALT 11 U/L (12-78) L 11/20/17 05:30 Alkaline Phosphatase 48 U/L (45-117) 11/20/17 05:30 Total Protein 8.1 g/dl (6.4-8.2) 11/20/17 05:30 Albumin 3.2 g/dl (3.4-5.0) L 11/20/17 05:30 Assessment: This is an 82 year old female with PMHx of non-hodgkin lymphoma ( diagnosed in 2002), Waldenstom's Macroglobulinemia, hypothyroidism, who presented to the hospital for plasmaphoresis after feeling dizzy and unsteady. Plan: 1) Non-hodgkin lymphoma Waldenstom's Macroglobulinemia - Dx 2002, 2011 Rituxin (no significant response), 2012 R-CHOP with R-CVP that decreased IgM to 1400 - IgM >12,000 - For 5 total treatments of plasmapheresis, for treatment 2/ today - Continue Allopurinol - Appreciate oncology consult 2) SHEFALI - Resolved 3) Hypothyroidism - Continue Synthroid 4) Dizziness - Meclizine 5) F/E/N: - Monitor electrolytes - Regular diet 6) Prophylaxis: - Lovenox 40mg sq daily 7) Dispo: - Requires continued ICU care CODE STATUS: FULL CODE Visit type - Emergency Visit Emergency Visit: Yes ED Registration Date: 11/18/17 Care time: The patient presented to the Emergency Department on the above date and was hospitalized for further evaluation of their emergent condition. - New Patient This patient is new to me today: No - Critical Care Critical Care patient: Yes Total Critical Care Time (in minutes): 35 Critical Care Statement: The care of this patient involved high complexity decision making to prevent further life threatening deterioration of the patient 's condition and/or to evaluate & treat vital organ system(s) failure or risk of failure.
[2017-11-20] MEDS ORDERED: ALBUMIN HUMAN 5% 250 ML IV SOLUTION IVPB SCH (14:41)
[2017-11-20] MEDS: diphenhydrAMINE HCL 25 MG CAPSULE (FP) PO SCH (14:48)
[2017-11-20] MEDS: ACETAMINOPHEN 325 MG TABLET (FP) PO SCH (14:49)
[2017-11-20] MEDS: CHLORHEXIDINE GLUCONATE 4% CLEANSER FOR DECOLONIZATION TP SCH (21:27)
--- NOTE | 2017-11-20 23:01 | PN ---
Progress Note (short form) - Note Progress Note: Patient seen and examined Feels much better Denies any complaints AFVSS Cor: RSR, No murmurs, No gallops Lungs: Clear to P&A Abd: Soft, Normal bowel sounds, No organomegaly Ext:No significant edema Labs/Meds reviewed A/P 82 y/o patient with waldenstorms macroglobulinemia s/p 2/5 plasmapheresis Monitoring PT/PTT/Fibrinogen/Mg/Ca
[2017-11-21 06:06] LABS: BASO % 0.8 % (0-2.0); EOS % 2.1 % (0-4.5); HEMATOCRIT 30.5 % (32.4-45.2); LYMPH % 32.1 % (8-40); MCH 29.7 pg (25.7-33.7); MCHC 32.9 g/dl (32.0-36.0); MEAN CELL VOLUME 90.4 fl (80-96); MEAN PLT VOLUME 8.3 fl (7.5-11.1); MONO % 13.1 % (3.8-10.2); NEUT % 51.9 % (42.8-82.8); PLATELET COUNT 138 K/MM3 (134-434); RBC 3.38 M/mm3 (3.60-5.2); RDW 18.9 % (11.6-15.6); WHITE BLOOD COUNT 4.9 K/mm3 (4.0-10.0)
[2017-11-21] MEDS: LEVOTHYROXINE NA 75 MCG TABLET (FP) PO SCH (06:23)
[2017-11-21 06:24] LABS: INR 1.14 (0.83-1.09); PROTHROMBIN TIME (PATIENT) 12.9 SEC (9.7-13.0)
[2017-11-21 06:27] LABS: ACTIVATED PTT 34.8 SECONDS (25.2-36.5)
[2017-11-21 06:39] LABS: ALBUMIN 4.1 g/dl (3.4-5.0); BLOOD UREA NITROGEN 27 mg/dL (7-18); CHLORIDE 112 mmol/L (98-107); PHOSPHOROUS 2.8 mg/dL (2.5-4.9); POTASSIUM 4.5 mmol/L (3.5-5.1); SGOT/AST 8 U/L (15-37); SODIUM 142 mmol/L (136-145)
[2017-11-21 06:43] LABS: ALK PHOS 31 U/L (45-117); ANION GAP 7 MMOL/L (8-16); BILIRUBIN,TOTAL 0.3 mg/dL (0.2-1.0); CALCIUM 8.4 mg/dL (8.5-10.1); CO2 23 mmol/L (21-32); CREATININE 0.8 mg/dL (0.55-1.02); GLUCOSE,RANDOM 100 mg/dL (74-106); MAGNESIUM 1.8 mg/dL (1.8-2.4); SGPT/ALT 10 U/L (12-78); TOT PROT 6.9 g/dl (6.4-8.2)
[2017-11-21 06:49] LABS: BILIRUBIN,DIRECT < 0.2 mg/dL (0.0-0.2)
[2017-11-21] MEDS ORDERED: PT OWN MED DRAWER 7, Y5N ONE ×2 (08:08→09:54)
[2017-11-21] MEDS: VENLAFAXINE HCL 75 MG TABLET PO SCH (09:00)
[2017-11-21] MEDS: ALLOPURINOL 100 MG TABLET (FP) PO SCH (10:12)
[2017-11-21] MEDS: MUPIROCIN 2% TOPICAL OINTMENT FOR DECOLONIZATION NS SCH ×2 (10:12→21:05)
[2017-11-21] MEDS: ENOXAPARIN NA (PORCINE) 40 MG/0.4 ML DISP.SYRIN SQ SCH (10:13)
--- NOTE | 2017-11-21 12:08 | PN ---
Teaching Attending Note Name of Resident: Luann Peoples ATTENDING PHYSICIAN STATEMENT I saw and evaluated the patient. I reviewed the resident's note and discussed the case with the resident. I agree with the resident's findings and plan as documented. SUBJECTIVE: Patient seen and examined in the ICU. No events overnight. Dizziness has resolved. No CP or SOB. Has received 2 exchanges at this point. OBJECTIVE: Intake & Output 11/18/17 11/19/17 11/20/17 11/21/17 23:59 23:59 23:59 23:59 Intake Total 200 600 880 250 Balance 200 600 880 250 Weight 142 lb 6.4 oz 142 lb Last Vital Signs Temp Pulse Resp BP Pulse Ox 98.3 F 80 21 102/51 99 11/21/17 10:53 11/21/17 10:29 11/21/17 10:29 11/21/17 10:29 11/21/17 08:00 Active Medications Acetaminophen (Tylenol -) 650 mg PO Q2D@1700 [facility] Stop: 11/26/17 17:01 Last Admin: 11/20/17 14:49 Dose: Not Given Albumin Human (Plasbumin-5 -) 150 gm IVPB Q2D@1700 [facility] Stop: 11/26/17 17:01 Last Admin: 11/20/17 14:51 Dose: 150 gm Allopurinol (Zyloprim -) 100 mg PO DAILY [facility] Last Admin: 11/21/17 10:12 Dose: 100 mg Calcium Gluconate (Calcium Gluconate 10% -) 1,000 mg IVPB Q2D@0500,1700 [facility] Stop: 11/28/17 05:01 Last Admin: 11/20/17 14:51 Dose: 1,000 mg Chlorhexidine Gluconate (Hibiclens For Decolonization -) 1 applic TP HS [facility] Last Admin: 11/20/17 21:27 Dose: 1 applic Diphenhydramine HCl (Benadryl -) 25 mg PO Q2D@1700 [facility] Stop: 11/26/17 17:01 Last Admin: 11/20/17 14:48 Dose: Not Given Enoxaparin Sodium (Lovenox -) 40 mg SQ DAILY [facility] Last Admin: 11/21/17 10:13 Dose: 40 mg Heparin Sodium (Porcine) (Hep-Lock -) 5 ml IVPUSH PRN PRN PRN Reason: Heparin Last Admin: 11/20/17 16:54 Dose: 5 ml Levothyroxine Sodium (Synthroid -) 75 mcg PO DAILY@0700 [facility] Last Admin: 11/21/17 06:23 Dose: 75 mcg Meclizine HCl (Antivert -) 25 mg PO TID PRN PRN Reason: VERTIGO Mupirocin (Bactroban Ointment (For Decolonization) -) 1 applic NS BID [facility] Stop: 11/23/17 21:59 Last Admin: 11/21/17 10:12 Dose: 1 applic Venlafaxine HCl (Effexor -) 75 mg PO DAILY@0800 [facility] Last Admin: 11/21/17 09:00 Dose: 75 mg Gen: NAD at rest Heart: RRR Lung: decreased breath sounds at the bases Abd: soft, nontender Ext: no edema Laboratory Results - last 24 hr 11/19/17 11/20/17 11/21/17 06:30 10:15 05:30 WBC 4.9 RBC 3.38 L Hgb 10.0 L Hct 30.5 L MCV 90.4 MCH 29.7 MCHC 32.9 RDW 18.9 H Plt Count 138 MPV 8.3 Absolute Neuts (auto) 2.5 Neutrophils % 51.9 D Lymphocytes % 32.1 D Monocytes % 13.1 H Eosinophils % 2.1 Basophils % 0.8 Nucleated RBC % 0 Blood Viscosity 2.5 H PT with INR INR PTT (Actin FS) Fibrinogen 195.0 L D Sodium Potassium Chloride Carbon Dioxide Anion Gap BUN Creatinine Creat Clearance w eGFR Random Glucose Calcium Phosphorus Magnesium Total Bilirubin Direct Bilirubin AST ALT Alkaline Phosphatase Total Protein Albumin 11/21/17 11/21/17 11/21/17 05:30 05:30 10:00 WBC RBC Hgb Hct MCV MCH MCHC RDW Plt Count MPV Absolute Neuts (auto) Neutrophils % Lymphocytes % Monocytes % Eosinophils % Basophils % Nucleated RBC % Blood Viscosity PT with INR 12.90 INR 1.14 H PTT (Actin FS) 34.8 Fibrinogen 156.0 L Sodium 142 Potassium 4.5 Chloride 112 H Carbon Dioxide 23 Anion Gap 7 L BUN 27 H Creatinine 0.8 Creat Clearance w eGFR > 60 Random Glucose 100 Calcium 8.4 L Phosphorus 2.8 Magnesium 1.8 Total Bilirubin 0.3 Direct Bilirubin < 0.2 AST 8 L ALT 10 L Alkaline Phosphatase 31 L D Total Protein 6.9 Albumin 4.1 ASSESSMENT AND PLAN: Non-Hodgkin's Lymphoma Waldenstrom's Macroglobulinemia Acute Kidney Injury Hypothyroidism - plasmaphoresis per heme/oncology (2 of 5 exchanges completed) - monitor lytes - monitor blood viscosity - monitor coags, fibrinogen level - monitor urine output, creatinine - PO as tolerated - DVT prophylaxis Dr Harrell Critical care time spent in reviewing chart, evaluating patient and formulating plan - 36 minutes.
--- NOTE | 2017-11-21 13:03 | PN ---
Physical Exam: SUBJECTIVE: Patient seen and examined at bedside. patient had another plasmapheresis yesterday and is feeling well. states that her dizziness is gone. denies any CP/SOB/N/N. OBJECTIVE: Vital Signs Period Temp Pulse Resp BP Sys/Francis Pulse Ox Last 24 Hr 98.3 F-99.4 F 69-106 15-21 99-140/50-95 98-99 GENERAL: The patient is awake, alert, and fully oriented, in no acute distress. HEAD: Normal with no signs of trauma. EYES: PERRL, extraocular movements intact, sclera anicteric, conjunctiva clear. No ptosis. ENT: Ears normal, nares patent, oropharynx clear without exudates, moist mucous membranes. NECK: Trachea midline, full range of motion, supple. LUNGS: Breath sounds equal, clear to auscultation bilaterally, no wheezes, no crackles, no accessory muscle use. HEART: Regular rate and rhythm, S1, S2 without murmur, rub or gallop. ABDOMEN: Soft, nontender, nondistended, normoactive bowel sounds, no guarding, no rebound, no hepatosplenomegaly, no masses. EXTREMITIES: 2+ pulses, warm, well-perfused, no edema. NEUROLOGICAL: Cranial nerves II through XII grossly intact. Normal speech, gait not observed. PSYCH: Normal mood, normal affect. SKIN: Warm, dry, normal turgor, no rashes or lesions noted Laboratory Results - last 24 hr 11/19/17 11/21/17 11/21/17 06:30 05:30 05:30 WBC 4.9 RBC 3.38 L Hgb 10.0 L Hct 30.5 L MCV 90.4 MCH 29.7 MCHC 32.9 RDW 18.9 H Plt Count 138 MPV 8.3 Absolute Neuts (auto) 2.5 Neutrophils % 51.9 D Lymphocytes % 32.1 D Monocytes % 13.1 H Eosinophils % 2.1 Basophils % 0.8 Nucleated RBC % 0 Blood Viscosity 2.5 H PT with INR 12.90 INR 1.14 H PTT (Actin FS) 34.8 Fibrinogen Sodium Potassium Chloride Carbon Dioxide Anion Gap BUN Creatinine Creat Clearance w eGFR Random Glucose Calcium Phosphorus Magnesium Total Bilirubin Direct Bilirubin AST ALT Alkaline Phosphatase Total Protein Albumin 11/21/17 11/21/17 05:30 10:00 WBC RBC Hgb Hct MCV MCH MCHC RDW Plt Count MPV Absolute Neuts (auto) Neutrophils % Lymphocytes % Monocytes % Eosinophils % Basophils % Nucleated RBC % Blood Viscosity PT with INR INR PTT (Actin FS) Fibrinogen 156.0 L Sodium 142 Potassium 4.5 Chloride 112 H Carbon Dioxide 23 Anion Gap 7 L BUN 27 H Creatinine 0.8 Creat Clearance w eGFR > 60 Random Glucose 100 Calcium 8.4 L Phosphorus 2.8 Magnesium 1.8 Total Bilirubin 0.3 Direct Bilirubin < 0.2 AST 8 L ALT 10 L Alkaline Phosphatase 31 L D Total Protein 6.9 Albumin 4.1 Active Medications Generic Name Dose Route Start Last Admin Trade Name Freq PRN Reason Stop Dose Admin Acetaminophen 650 mg 11/18/17 17:00 11/20/17 14:49 Tylenol - PO 11/26/17 17:01 Not Given Q2D@1700 [facility] Albumin Human 150 gm 11/20/17 14:41 11/20/17 14:51 Plasbumin-5 - IVPB 11/26/17 17:01 150 gm Q2D@1700 [facility] Administration Allopurinol 100 mg 11/19/17 10:00 11/21/17 10:12 Zyloprim - PO 100 mg DAILY [facility] Administration Calcium Gluconate 1,000 mg 11/20/17 14:38 11/20/17 14:51 Calcium Gluconate 10% - IVPB 11/28/17 05:01 1,000 mg Q2D@0500,1700 [facility] Administration Chlorhexidine Gluconate 1 applic 11/18/17 22:00 11/20/17 21:27 Hibiclens For Decolonization - TP 1 applic HS [facility] Administration Diphenhydramine HCl 25 mg 11/18/17 17:00 11/20/17 14:48 Benadryl - PO 11/26/17 17:01 Not Given Q2D@1700 [facility] Enoxaparin Sodium 40 mg 11/19/17 21:15 11/21/17 10:13 Lovenox - SQ 40 mg DAILY [facility] Administration Heparin Sodium (Porcine) 5 ml 11/20/17 15:40 11/20/17 16:54 Hep-Lock - IVPUSH 5 ml PRN PRN Administration Heparin Levothyroxine Sodium 75 mcg 11/19/17 07:00 11/21/17 06:23 Synthroid - PO 75 mcg DAILY@0700 [facility] Administration Meclizine HCl 25 mg 11/18/17 18:37 Antivert - PO TID PRN VERTIGO Mupirocin 1 applic 11/18/17 22:00 11/21/17 10:12 Bactroban Ointment (For Decolonization) - NS 11/23/17 21:59 1 applic BID [facility] Administration Venlafaxine HCl 75 mg 11/19/17 08:00 11/21/17 09:00 Effexor - PO 75 mg DAILY@0800 [facility] Administration ASSESSMENT/PLAN: 82 y/o female with a history of non-hodgkin's lymphoma (diagnosed in 2002; underwent chemo in 2012), waldenstrom's macroglobulinemia, hypothyrodisim presents to the ER with complaints of dizziness and unsteady gait off and on for months, found to have elevated IGM protein due to undergo plasmaphoresis. Heme/Onc: Non-Hodgkin's lymphoma/waldenstroms macroglobulinemia -patient undergoing plasmapharesis #2 yesterday -IgM decreasing -viscosity level pending -c/w allopurinol -monitor CBC -monitor fibrinogen levels -pateint to undergo plasmapheresis #3 tomorrow Hypothyroidism: -c/w synthroid Renal: SHEFALI -Cr is downtrending to 1.0 -continue monitoring urine output and Cr DVT prophylaxis: lovenox 40 F/E/N: not on standing fluids replete electrolytes when necessary regular diet dispo: continue ICU monitoring Problem List - Problems (1) Peripheral vertigo Code(s): H81.399 - OTHER PERIPHERAL VERTIGO, UNSPECIFIED EAR (2) Hypothyroidism Code(s): E03.9 - HYPOTHYROIDISM, UNSPECIFIED (3) Non-Hodgkin lymphoma Code(s): C85.90 - NON-HODGKIN LYMPHOMA, UNSPECIFIED, UNSPECIFIED SITE Qualifiers: Non-Hodgkin lymphoma type: non-follicular Visit type - Emergency Visit Emergency Visit: Yes ED Registration Date: 11/18/17 Care time: The patient presented to the Emergency Department on the above date and was hospitalized for further evaluation of their emergent condition. - New Patient This patient is new to me today: No - Critical Care Critical Care patient: Yes Total Critical Care Time (in minutes): 35 Critical Care Statement: The care of this patient involved high complexity decision making to prevent further life threatening deterioration of the patient 's condition and/or to evaluate & treat vital organ system(s) failure or risk of failure.
--- NOTE | 2017-11-21 16:16 | PN ---
Physical Exam: SUBJECTIVE: Patient seen and examined. She has no complaints. OBJECTIVE: Vital Signs Period Temp Pulse Resp BP Sys/Francis Pulse Ox Last 24 Hr 98.3 F-99.4 F 69-106 15-21 99-140/51-95 98-99 GENERAL: The patient is awake, alert, and fully oriented, in no acute distress. LUNGS: Breath sounds equal, clear to auscultation bilaterally, no wheezes, no crackles, no accessory muscle use. HEART: Regular rate and rhythm, S1, S2 without murmur, rub or gallop. ABDOMEN: Soft, nontender, nondistended, normoactive bowel sounds, no guarding, no rebound, no hepatosplenomegaly, no masses. EXTREMITIES: 2+ pulses, warm, well-perfused, no edema. Laboratory Results - last 24 hr 11/19/17 11/21/17 11/21/17 06:30 05:30 05:30 WBC 4.9 RBC 3.38 L Hgb 10.0 L Hct 30.5 L MCV 90.4 MCH 29.7 MCHC 32.9 RDW 18.9 H Plt Count 138 MPV 8.3 Absolute Neuts (auto) 2.5 Neutrophils % 51.9 D Lymphocytes % 32.1 D Monocytes % 13.1 H Eosinophils % 2.1 Basophils % 0.8 Nucleated RBC % 0 Blood Viscosity 2.5 H PT with INR 12.90 INR 1.14 H PTT (Actin FS) 34.8 Fibrinogen Sodium Potassium Chloride Carbon Dioxide Anion Gap BUN Creatinine Creat Clearance w eGFR Random Glucose Calcium Phosphorus Magnesium Total Bilirubin Direct Bilirubin AST ALT Alkaline Phosphatase Total Protein Albumin 11/21/17 11/21/17 05:30 10:00 WBC RBC Hgb Hct MCV MCH MCHC RDW Plt Count MPV Absolute Neuts (auto) Neutrophils % Lymphocytes % Monocytes % Eosinophils % Basophils % Nucleated RBC % Blood Viscosity PT with INR INR PTT (Actin FS) Fibrinogen 156.0 L Sodium 142 Potassium 4.5 Chloride 112 H Carbon Dioxide 23 Anion Gap 7 L BUN 27 H Creatinine 0.8 Creat Clearance w eGFR > 60 Random Glucose 100 Calcium 8.4 L Phosphorus 2.8 Magnesium 1.8 Total Bilirubin 0.3 Direct Bilirubin < 0.2 AST 8 L ALT 10 L Alkaline Phosphatase 31 L D Total Protein 6.9 Albumin 4.1 Active Medications Generic Name Dose Route Start Last Admin Trade Name Freq PRN Reason Stop Dose Admin Acetaminophen 650 mg 11/18/17 17:00 11/20/17 14:49 Tylenol - PO 11/26/17 17:01 Not Given Q2D@1700 [facility] Albumin Human 150 gm 11/20/17 14:41 11/20/17 14:51 Plasbumin-5 - IVPB 11/26/17 17:01 150 gm Q2D@1700 [facility] Administration Allopurinol 100 mg 11/19/17 10:00 11/21/17 10:12 Zyloprim - PO 100 mg DAILY [facility] Administration Calcium Gluconate 1,000 mg 11/20/17 14:38 11/20/17 14:51 Calcium Gluconate 10% - IVPB 11/28/17 05:01 1,000 mg Q2D@0500,1700 [facility] Administration Chlorhexidine Gluconate 1 applic 11/18/17 22:00 11/20/17 21:27 Hibiclens For Decolonization - TP 1 applic HS [facility] Administration Diphenhydramine HCl 25 mg 11/18/17 17:00 11/20/17 14:48 Benadryl - PO 11/26/17 17:01 Not Given Q2D@1700 [facility] Enoxaparin Sodium 40 mg 11/19/17 21:15 11/21/17 10:13 Lovenox - SQ 40 mg DAILY [facility] Administration Heparin Sodium (Porcine) 5 ml 11/20/17 15:40 11/20/17 16:54 Hep-Lock - IVPUSH 5 ml PRN PRN Administration Heparin Levothyroxine Sodium 75 mcg 11/19/17 07:00 11/21/17 06:23 Synthroid - PO 75 mcg DAILY@0700 [facility] Administration Meclizine HCl 25 mg 11/18/17 18:37 Antivert - PO TID PRN VERTIGO Mupirocin 1 applic 11/18/17 22:00 11/21/17 10:12 Bactroban Ointment (For Decolonization) - NS 11/23/17 21:59 1 applic BID [facility] Administration Venlafaxine HCl 75 mg 11/19/17 08:00 11/21/17 09:00 Effexor - PO 75 mg DAILY@0800 [facility] Administration ASSESSMENT/PLAN: This is an 82 year old woman with a history of NHL, Waldenstom macroglobulinemia , hypothyroidism, who was admitted for plasmapheresis for WM with complaint of dizziness. 1. Waldenstrom macroglobulinemia - Admitted for plasmapheresis every other day x 5 treatments (first was 11/18) - Continue Allopurinol - Plan for chemo after plasmapheresis 2. History of non-Hodgkin lymphoma 3. Acute kidney injury - Resolved - Renal US shows 1.3 cm left renal cortical cyst 4. Hypothyroidism - Continue Synthroid 5. Dizziness - Improved - Continue Meclizine as needed Visit type - Emergency Visit Emergency Visit: Yes ED Registration Date: 11/18/17 Care time: The patient presented to the Emergency Department on the above date and was hospitalized for further evaluation of their emergent condition. - New Patient This patient is new to me today: No - Critical Care Critical Care patient: No - Discharge Referral Referred to [facility] Med P.C.: No
--- NOTE | 2017-11-21 20:12 | PN ---
Progress Note (short form) - Note Progress Note: Patient seen and examined Feels much better Denies any complaints Last Vital Signs Temp Pulse Resp BP Pulse Ox 98.4 F 99 H 15 126/72 99 11/21/17 18:00 11/21/17 18:00 11/21/17 18:00 11/21/17 18:00 11/21/17 08:00 Cor: RSR, No murmurs, No gallops Lungs: Clear to P&A Abd: Soft, Normal bowel sounds, No organomegaly Ext:No significant edema Abnormal Lab Results 11/19/17 11/21/17 11/21/17 06:30 05:30 05:30 RBC 3.38 L Hgb 10.0 L Hct 30.5 L RDW 18.9 H Monocytes % 13.1 H Blood Viscosity 2.5 H INR 1.14 H Fibrinogen Chloride Anion Gap BUN Calcium AST ALT Alkaline Phosphatase 11/21/17 11/21/17 05:30 10:00 RBC Hgb Hct RDW Monocytes % Blood Viscosity INR Fibrinogen 156.0 L Chloride 112 H Anion Gap 7 L BUN 27 H Calcium 8.4 L AST 8 L ALT 10 L Alkaline Phosphatase 31 L D Active Medications Generic Name Dose Route Start Last Admin Trade Name Freq PRN Reason Stop Dose Admin Acetaminophen 650 mg 11/18/17 17:00 11/20/17 14:49 Tylenol - PO 11/26/17 17:01 Not Given Q2D@1700 [facility] Albumin Human 150 gm 11/20/17 14:41 11/20/17 14:51 Plasbumin-5 - IVPB 11/26/17 17:01 150 gm Q2D@1700 [facility] Administration Allopurinol 100 mg 11/19/17 10:00 11/21/17 10:12 Zyloprim - PO 100 mg DAILY [facility] Administration Calcium Gluconate 1,000 mg 11/20/17 14:38 11/20/17 14:51 Calcium Gluconate 10% - IVPB 11/28/17 05:01 1,000 mg Q2D@0500,1700 [facility] Administration Chlorhexidine Gluconate 1 applic 11/18/17 22:00 11/20/17 21:27 Hibiclens For Decolonization - TP 1 applic HS [facility] Administration Diphenhydramine HCl 25 mg 11/18/17 17:00 11/20/17 14:48 Benadryl - PO 11/26/17 17:01 Not Given Q2D@1700 [facility] Enoxaparin Sodium 40 mg 11/19/17 21:15 11/21/17 10:13 Lovenox - SQ 40 mg DAILY [facility] Administration Heparin Sodium (Porcine) 5 ml 11/20/17 15:40 11/20/17 16:54 Hep-Lock - IVPUSH 5 ml PRN PRN Administration Heparin Levothyroxine Sodium 75 mcg 11/19/17 07:00 11/21/17 06:23 Synthroid - PO 75 mcg DAILY@0700 [facility] Administration Meclizine HCl 25 mg 11/18/17 18:37 Antivert - PO TID PRN VERTIGO Mupirocin 1 applic 11/18/17 22:00 11/21/17 10:12 Bactroban Ointment (For Decolonization) - NS 11/23/17 21:59 1 applic BID [facility] Administration Venlafaxine HCl 75 mg 11/19/17 08:00 11/21/17 09:00 Effexor - PO 75 mg DAILY@0800 [facility] Administration A/P 82 y/o patient with waldenstorms macroglobulinemia s/p 2/5 plasmapheresis Monitoring PT/PTT/Fibrinogen/Mg/Ca
[2017-11-21] MEDS: CHLORHEXIDINE GLUCONATE 4% CLEANSER FOR DECOLONIZATION TP SCH (21:05)
[2017-11-22] MEDS: CALCIUM GLUCONATE 10% - 1,000 MG/10 ML VIAL IVPB SCH ×2 (05:02→16:35)
[2017-11-22] MEDS: LEVOTHYROXINE NA 75 MCG TABLET (FP) PO SCH (06:13)
[2017-11-22 06:40] LABS: BASO % 1.7 % (0-2.0); EOS % 2.4 % (0-4.5); HEMATOCRIT 28.8 % (32.4-45.2); HEMOGLOBIN 9.5 GM/dL (10.7-15.3); LYMPH % 37.8 % (8-40); MCH 29.7 pg (25.7-33.7); MEAN CELL VOLUME 90.1 fl (80-96); MEAN PLT VOLUME 8.4 fl (7.5-11.1); MONO % 13.6 % (3.8-10.2); NEUT % 44.5 % (42.8-82.8); PLATELET COUNT 150 K/MM3 (134-434); RDW 19.2 % (11.6-15.6); WHITE BLOOD COUNT 4.6 K/mm3 (4.0-10.0)
[2017-11-22 06:43] LABS: INR 1.05 (0.83-1.09); PROTHROMBIN TIME (PATIENT) 11.9 SEC (9.7-13.0)
[2017-11-22 06:51] LABS: ANION GAP 5 MMOL/L (8-16); BLOOD UREA NITROGEN 23 mg/dL (7-18); CHLORIDE 112 mmol/L (98-107); CO2 25 mmol/L (21-32); CREATININE 0.8 mg/dL (0.55-1.02); GLUCOSE,RANDOM 93 mg/dL (74-106); MAGNESIUM 1.9 mg/dL (1.8-2.4); PHOSPHOROUS 2.8 mg/dL (2.5-4.9); POTASSIUM 4.6 mmol/L (3.5-5.1); SODIUM 142 mmol/L (136-145)
--- NOTE | 2017-11-22 08:00 | PN ---
Progress Note (short form) - Note Progress Note: PULM/CCM The patient was seen and examined in the ICU. Pt reports feeling better today, eating breakfast. Active Medications Acetaminophen (Tylenol -) 650 mg PO Q2D@1700 [facility] Stop: 11/26/17 17:01 Last Admin: 11/20/17 14:49 Dose: Not Given Albumin Human (Albutein) 150 gm IVPB Q2D@1700 [facility] Stop: 11/26/17 17:01 Last Admin: 11/22/17 12:10 Dose: 150 gm Allopurinol (Zyloprim -) 100 mg PO DAILY [facility] Last Admin: 11/22/17 09:26 Dose: 100 mg Calcium Gluconate (Calcium Gluconate 10% -) 1,000 mg IVPB Q2D@0500,1700 [facility] Stop: 11/28/17 05:01 Last Admin: 11/22/17 05:02 Dose: 1,000 mg Chlorhexidine Gluconate (Hibiclens For Decolonization -) 1 applic TP HS [facility] Last Admin: 11/21/17 21:05 Dose: 1 applic Diphenhydramine HCl (Benadryl -) 25 mg PO Q2D@1700 [facility] Stop: 11/26/17 17:01 Last Admin: 11/20/17 14:48 Dose: Not Given Enoxaparin Sodium (Lovenox -) 40 mg SQ DAILY [facility] Last Admin: 11/22/17 09:25 Dose: 40 mg Heparin Sodium (Porcine) (Hep-Lock -) 5 ml IVPUSH PRN PRN PRN Reason: Heparin Last Admin: 11/20/17 16:54 Dose: 5 ml Levothyroxine Sodium (Synthroid -) 75 mcg PO DAILY@0700 [facility] Last Admin: 11/22/17 06:13 Dose: 75 mcg Meclizine HCl (Antivert -) 25 mg PO TID PRN PRN Reason: VERTIGO Mupirocin (Bactroban Ointment (For Decolonization) -) 1 applic NS BID [facility] Stop: 11/23/17 21:59 Last Admin: 11/22/17 09:25 Dose: 1 applic Venlafaxine HCl (Effexor -) 75 mg PO DAILY@0800 [facility] Last Admin: 11/22/17 09:00 Dose: 75 mg V/S Period Temp Pulse Resp BP Sys/Francis Pulse Ox Last 24 Hr 98.1 F-99.0 F 75-99 15- 103-132/51-90 99-99 Intake & Output 11/19/17 11/20/17 11/21/17 11/22/17 23:59 23:59 23:59 23:59 Intake Total 600 880 890 340 Balance 600 880 890 340 Weight 64.41 kg Gen: NAD at rest Heart: RRR Lung: decreased breath sounds at the bases Abd: soft, nontender Ext: no edema CBC, BMP 11/22/17 05:30 11/22/17 05:30 ASSESSMENT AND PLAN: Non-Hodgkin's Lymphoma Waldenstrom's Macroglobulinemia Acute Kidney Injury Hypothyroidism - plasmaphoresis again today (2 of 5 exchanges completed) - monitor lytes - monitor blood viscosity - monitor coags, fibrinogen level - monitor urine output, creatinine - PO as tolerated - DVT prophylaxis DGL ACNP-BC [facility] ICU PULM/CCM 4436 Critical Care Total Critical Care Time (in minutes): 38 Critical Care Statement: The care of this patient involved high complexity decision making to prevent further life threatening deterioration of the patient 's condition and/or to evaluate & treat vital organ system(s) failure or risk of failure.
--- NOTE | 2017-11-22 08:51 | PN ---
Progress Note (short form) - Note Progress Note: Subjective: The patient was seen and examined at the bedside, she reports feeling good today, is eating breakfast For plasmapheresis today Current Medications Generic Name Dose Route Start Last Admin Trade Name Fiorella PRN Reason Stop Dose Admin Acetaminophen 650 mg 11/18/17 17:00 11/20/17 14:49 Tylenol - PO 11/26/17 17:01 Not Given Q2D@1700 [facility] Albumin Human 150 gm 11/20/17 14:41 11/20/17 14:51 Plasbumin-5 - IVPB 11/26/17 17:01 150 gm Q2D@1700 [facility] Administration Allopurinol 100 mg 11/19/17 10:00 11/21/17 10:12 Zyloprim - PO 100 mg DAILY [facility] Administration Calcium Gluconate 1,000 mg 11/20/17 14:38 11/22/17 05:02 Calcium Gluconate 10% - IVPB 11/28/17 05:01 1,000 mg Q2D@0500,1700 [facility] Administration Chlorhexidine Gluconate 1 applic 11/18/17 22:00 11/21/17 21:05 Hibiclens For Decolonization - TP 1 applic HS [facility] Administration Diphenhydramine HCl 25 mg 11/18/17 17:00 11/20/17 14:48 Benadryl - PO 11/26/17 17:01 Not Given Q2D@1700 [facility] Enoxaparin Sodium 40 mg 11/19/17 21:15 11/21/17 10:13 Lovenox - SQ 40 mg DAILY [facility] Administration Heparin Sodium (Porcine) 5 ml 11/20/17 15:40 11/20/17 16:54 Hep-Lock - IVPUSH 5 ml PRN PRN Administration Heparin Levothyroxine Sodium 75 mcg 11/19/17 07:00 11/22/17 06:13 Synthroid - PO 75 mcg DAILY@0700 [facility] Administration Meclizine HCl 25 mg 11/18/17 18:37 Antivert - PO TID PRN VERTIGO Mupirocin 1 applic 11/18/17 22:00 11/21/17 21:05 Bactroban Ointment (For Decolonization) - NS 11/23/17 21:59 1 applic BID [facility] Administration Venlafaxine HCl 75 mg 11/19/17 08:00 11/21/17 09:00 Effexor - PO 75 mg DAILY@0800 [facility] Administration Objective: Vital Signs Period Temp Pulse Resp BP Sys/Francis Pulse Ox Last 24 Hr 98.2 F-99.4 F 75-106 15-22 102-140/51-90 99 Physical Exam: General: NAD, A&Ox3 Neck: Right plasmapheresis catheter in place Lungs: CTA bilaterally Heart: RRR, S1S2 Abd: Soft, non-tender. Normoactive bowel sounds CBCD WBC 4.6 K/mm3 (4.0-10.0) 11/22/17 05:30 RBC 3.20 M/mm3 (3.60-5.2) L 11/22/17 05:30 Hgb 9.5 GM/dL (10.7-15.3) L 11/22/17 05:30 Hct 28.8 % (32.4-45.2) L 11/22/17 05:30 MCV 90.1 fl (80-96) 11/22/17 05:30 MCHC 33.0 g/dl (32.0-36.0) 11/22/17 05:30 RDW 19.2 % (11.6-15.6) H 11/22/17 05:30 Plt Count 150 K/MM3 (134-434) 11/22/17 05:30 MPV 8.4 fl (7.5-11.1) 11/22/17 05:30 CMP Sodium 142 mmol/L (136-145) 11/22/17 05:30 Potassium 4.6 mmol/L (3.5-5.1) 11/22/17 05:30 Chloride 112 mmol/L (98-107) H 11/22/17 05:30 Carbon Dioxide 25 mmol/L (21-32) 11/22/17 05:30 Anion Gap 5 MMOL/L (8-16) L 11/22/17 05:30 BUN 23 mg/dL (7-18) H 11/22/17 05:30 Creatinine 0.8 mg/dL (0.55-1.02) 11/22/17 05:30 Creat Clearance w eGFR > 60 (>60) 11/22/17 05:30 Random Glucose 93 mg/dL (74-106) 11/22/17 05:30 Calcium 9.0 mg/dL (8.5-10.1) 11/22/17 05:30 Total Bilirubin 0.3 mg/dL (0.2-1.0) 11/21/17 05:30 AST 8 U/L (15-37) L 11/21/17 05:30 ALT 10 U/L (12-78) L 11/21/17 05:30 Alkaline Phosphatase 31 U/L (45-117) L D 11/21/17 05:30 Total Protein 6.9 g/dl (6.4-8.2) 11/21/17 05:30 Albumin 4.1 g/dl (3.4-5.0) 11/21/17 05:30 Assessment: This is an 82 year old female with PMHx of non-hodgkin lymphoma ( diagnosed in 2002), Waldenstom's Macroglobulinemia, hypothyroidism, who presented to the hospital for plasmaphoresis after feeling dizzy and unsteady. Plan: 1) Non-hodgkin lymphoma Waldenstom's Macroglobulinemia - Dx 2002, 2011 Rituxin (no significant response), 2012 R-CHOP with R-CVP that decreased IgM to 1400 - IgM >12,000 prior to admission - For 5 total treatments of plasmapheresis, for treatment 3/5 today - Monitor fibrinogen, PT, PTT, Mg, Ca - Continue Allopurinol - Appreciate oncology consult 2) SHEFALI - Resolved 3) Hypothyroidism - Continue Synthroid 4) Dizziness - Resolved - Meclizine 5) F/E/N: - Monitor electrolytes - Regular diet 6) Prophylaxis: - Lovenox 40mg sq daily 7) Dispo: - Requires continued ICU care CODE STATUS: FULL CODE Visit type - Emergency Visit Emergency Visit: Yes ED Registration Date: 11/18/17 Care time: The patient presented to the Emergency Department on the above date and was hospitalized for further evaluation of their emergent condition. - New Patient This patient is new to me today: No - Critical Care Critical Care patient: No
[2017-11-22] MEDS: VENLAFAXINE HCL 75 MG TABLET PO SCH (09:00)
[2017-11-22] MEDS ORDERED: PT OWN MED DRAWER 7, Y5N ONE (09:22)
[2017-11-22] MEDS: MUPIROCIN 2% TOPICAL OINTMENT FOR DECOLONIZATION NS SCH ×2 (09:25→21:12)
[2017-11-22] MEDS: ENOXAPARIN NA (PORCINE) 40 MG/0.4 ML DISP.SYRIN SQ SCH (09:25)
[2017-11-22] MEDS: ALLOPURINOL 100 MG TABLET (FP) PO SCH (09:26)
[2017-11-22] MEDS: diphenhydrAMINE HCL 25 MG CAPSULE (FP) PO SCH (11:00)
[2017-11-22] MEDS: ACETAMINOPHEN 325 MG TABLET (FP) PO SCH (11:00)
[2017-11-22] MEDS: ALBUMIN HUMAN 5% 500 ML IV SOLUTION IVPB SCH ×2 (12:00→12:10)
[2017-11-22 14:06] LABS: BASO % 0.6 % (0-2.0); EOS % 1.3 % (0-4.5); HEMATOCRIT 30.1 % (32.4-45.2); LYMPH % 26.5 % (8-40); MCH 30.4 pg (25.7-33.7); MCHC 33.2 g/dl (32.0-36.0); MEAN CELL VOLUME 91.5 fl (80-96); MEAN PLT VOLUME 8.8 fl (7.5-11.1); MONO % 8.1 % (3.8-10.2); NEUT % 63.5 % (42.8-82.8); PLATELET COUNT 152 K/MM3 (134-434); RBC 3.29 M/mm3 (3.60-5.2); RDW 19.3 % (11.6-15.6); WHITE BLOOD COUNT 7.1 K/mm3 (4.0-10.0)
[2017-11-22 14:18] LABS: INR 1.52 (0.83-1.09); PROTHROMBIN TIME (PATIENT) 17.2 SEC (9.7-13.0)
[2017-11-22 14:20] LABS: ACTIVATED PTT 68.8 SECONDS (25.2-36.5)
[2017-11-22] MEDS: CHLORHEXIDINE GLUCONATE 4% CLEANSER FOR DECOLONIZATION TP SCH (21:13)
--- NOTE | 2017-11-22 22:49 | PN ---
Progress Note (short form) - Note Progress Note: Patient seen and examined Feels much better Denies any complaints Last Vital Signs Temp Pulse Resp BP Pulse Ox 98.5 F 91 H 15 110/80 99 11/22/17 20:00 11/22/17 20:00 11/22/17 20:27 11/22/17 20:00 11/22/17 20:27 Cor: RSR, No murmurs, No gallops Lungs: Clear to P&A Abd: Soft, Normal bowel sounds, No organomegaly Ext:No significant edema Abnormal Lab Results 11/22/17 11/22/17 11/22/17 05:30 05:30 13:45 RBC 3.20 L Hgb 9.5 L Hct 28.8 L RDW 19.2 H Monocytes % 13.6 H PT with INR INR PTT (Actin FS) Fibrinogen 94.0 L* D Chloride 112 H Anion Gap 5 L BUN 23 H 11/22/17 11/22/17 13:45 13:45 RBC 3.29 L Hgb 10.0 L Hct 30.1 L RDW 19.3 H Monocytes % PT with INR 17.20 H INR 1.52 H PTT (Actin FS) 68.8 H Fibrinogen Chloride Anion Gap BUN Home Medication List Medication Instructions Recorded Confirmed Type Allopurinol [Zyloprim -] 100 mg PO DAILY 10/14/17 11/18/17 History Cefpodoxime Proxetil [Vantin -] 100 mg PO Q8H 10/14/17 10/14/17 History Levothyroxine Sodium [Levo-T] 75 mcg PO DAILY 10/14/17 11/18/17 History Meclizine HCl 25 mg PO TID PRN 10/14/17 11/18/17 History Venlafaxine HCl [Effexor -] 75 mg PO DAILY 10/14/17 11/18/17 History Active Medications Generic Name Dose Route Start Last Admin Trade Name Freq PRN Reason Stop Dose Admin Acetaminophen 650 mg 11/18/17 17:00 11/22/17 11:00 Tylenol - PO 11/26/17 17:01 Not Given Q2D@1700 [facility] Albumin Human 150 gm 11/22/17 09:45 11/22/17 12:00 Albutein IVPB 11/26/17 17:01 150 gm Q2D@1700 [facility] Administration Allopurinol 100 mg 11/19/17 10:00 11/22/17 09:26 Zyloprim - PO 100 mg DAILY [facility] Administration Calcium Gluconate 1,000 mg 11/20/17 14:38 11/22/17 16:35 Calcium Gluconate 10% - IVPB 11/28/17 05:01 Not Given Q2D@0500,1700 [facility] Chlorhexidine Gluconate 1 applic 11/18/17 22:00 11/22/17 21:13 Hibiclens For Decolonization - TP 1 applic HS [facility] Administration Diphenhydramine HCl 25 mg 11/18/17 17:00 11/22/17 11:00 Benadryl - PO 11/26/17 17:01 Not Given Q2D@1700 [facility] Heparin Sodium (Porcine) 5 ml 11/20/17 15:40 11/22/17 12:00 Hep-Lock - IVPUSH 5 ml PRN PRN Administration Heparin Levothyroxine Sodium 75 mcg 11/19/17 07:00 11/22/17 06:13 Synthroid - PO 75 mcg DAILY@0700 [facility] Administration Meclizine HCl 25 mg 11/18/17 18:37 Antivert - PO TID PRN VERTIGO Mupirocin 1 applic 11/18/17 22:00 11/22/17 21:12 Bactroban Ointment (For Decolonization) - NS 11/23/17 21:59 1 applic BID [facility] Administration Venlafaxine HCl 75 mg 11/19/17 08:00 11/22/17 09:00 Effexor - PO 75 mg DAILY@0800 [facility] Administration A/P 82 y/o patient with Waldenstorms macroglobulinemia s/p 3/5 plasmapheresis Monitoring PT/PTT/Fibrinogen/Mg/Ca fibrinogen--94 --transfuse 5 units of cryoprecipitate will hold further plasmapheresis until we get Ig M level
[2017-11-23 06:10] LABS: INR 1.18 (0.83-1.09); PROTHROMBIN TIME (PATIENT) 13.3 SEC (9.7-13.0)
[2017-11-23 06:13] LABS: ACTIVATED PTT 34.1 SECONDS (25.2-36.5)
[2017-11-23] MEDS: LEVOTHYROXINE NA 75 MCG TABLET (FP) PO SCH (06:46)
--- NOTE | 2017-11-23 07:38 | PN ---
Progress Note (short form) - Note Progress Note: PULM/CCM The patient was seen and examined in the ICU. S/p 3/5 phersis rounds completed yesterday, no complications, no issues, CA+OX3, NAD, ready for breakfast. Active Medications Acetaminophen (Tylenol -) 650 mg PO Q2D@1700 [facility] Stop: 11/26/17 17:01 Last Admin: 11/22/17 11:00 Dose: Not Given Albumin Human (Albutein) 150 gm IVPB Q2D@1700 [facility] Stop: 11/26/17 17:01 Last Admin: 11/22/17 12:00 Dose: 150 gm Allopurinol (Zyloprim -) 100 mg PO DAILY [facility] Last Admin: 11/22/17 09:26 Dose: 100 mg Calcium Gluconate (Calcium Gluconate 10% -) 1,000 mg IVPB Q2D@0500,1700 [facility] Stop: 11/28/17 05:01 Last Admin: 11/22/17 16:35 Dose: Not Given Chlorhexidine Gluconate (Hibiclens For Decolonization -) 1 applic TP HS [facility] Last Admin: 11/22/17 21:13 Dose: 1 applic Diphenhydramine HCl (Benadryl -) 25 mg PO Q2D@1700 [facility] Stop: 11/26/17 17:01 Last Admin: 11/22/17 11:00 Dose: Not Given Heparin Sodium (Porcine) (Hep-Lock -) 5 ml IVPUSH PRN PRN PRN Reason: Heparin Last Admin: 11/22/17 12:00 Dose: 5 ml Levothyroxine Sodium (Synthroid -) 75 mcg PO DAILY@0700 [facility] Last Admin: 11/23/17 06:46 Dose: 75 mcg Meclizine HCl (Antivert -) 25 mg PO TID PRN PRN Reason: VERTIGO Mupirocin (Bactroban Ointment (For Decolonization) -) 1 applic NS BID [facility] Stop: 11/23/17 21:59 Last Admin: 11/22/17 21:12 Dose: 1 applic Venlafaxine HCl (Effexor -) 75 mg PO DAILY@0800 [facility] Last Admin: 11/22/17 09:00 Dose: 75 mg V/S Period Temp Pulse Resp BP Sys/Francis Pulse Ox Last 24 Hr 98.1 F-98.8 F 70-94 15-24 95-132/49-80 99-99 Intake & Output 11/20/17 11/21/17 11/22/17 11/23/17 23:59 23:59 23:59 23:59 Intake Total 769 304 2921 250 Balance 779 247 5444 250 Weight 64.41 kg GEN: Elderly woman in good spirits, conversant, NAD, CA+Ox3 HEENT: PERRL, an-icteric, MMM, RIJ pheresis cath C/D/S/I PULM: CTAB CV: nml S1, S2, RR, unable to appreciate any G/M/R ABD: +BS, S/S N/T N/D X4Q CBC, BMP 11/22/17 13:45 11/22/17 05:30 INR, PTT INR 1.18 (0.83-1.09) H 11/23/17 05:30 Fibrinogen 94.0 mg/dL (238-498) L* D 11/22/17 13:45 RENAL US 11/20: There is no hydronephrosis. The kidneys appear unremarkable in position and size. The right kidney measures 10 cm in length, the left kidney 9.5 cm on the basis of recently performed CT of 10/15/2017. Accurate renal size is somewhat difficult to appreciate on the current ultrasound exam presumably due to portable technique and the patient's inability to fully cooperate in regards to optimal positioning. Cortical thickness and echogenicity appear unremarkable bilaterally. No obvious mass lesion or calculus is identified within the limitations of sonography. Incidental note is made of a 1.3 cm left renal cortical cyst. There is no obvious perirenal fluid collection. IMPRESSION : No hydronephrosis is seen. The kidneys demonstrate no definite sonographic abnormality. Incidental note is made of a 1.3 cm left renal cortical cyst. CXR 11/18: Since the prior study of 10/13/2017, a second right jugular line has been inserted and the tip is in the upper right atrium. The other right central line tip is in the SVC. There is no sign of a pneumothorax. The mediastinum is not widened. Correlation recommended. ASSESS: Non-Hodgkin's Lymphoma Waldenstrom's Macroglobulinemia (IgM = 4057 on admit & symptomatic w/ SHEFALI & dizzy) Acute Kidney Injury Hypothyroidism PLAN: - monitor lytes - monitor blood viscosity - monitor coags, fibrinogen level - monitor urine output, creatinine - Continue Allopurinol - Continue Synthroid - F/u w/ Dr. Low - D/c phersis (3/5 exchanges completed) - F/u w/ 11/22 IgM Level - Regular diet - Pt no Longer requires ICU level of Care - D/c --> Onc floor for Chemo - DVT prophylaxis CODE STATUS: FULL CODE DISPO: X-Ollie --> HEME/ONC Floor Thank you for this interesting consult. DGL ACNP-[facility] ICU PULM/CCM 4434 Critical Care Total Critical Care Time (in minutes): 38 Critical Care Statement: The care of this patient involved high complexity decision making to prevent further life threatening deterioration of the patient 's condition and/or to evaluate & treat vital organ system(s) failure or risk of failure.
[2017-11-23 08:07] LABS: IGA IMMUNOGLOBULIN <5 mg/dL (64-422); IGG IMMUNOGLOBULIN <30 mg/dL (700-1600); IGM IMMUNOGLOBULIN 2697 mg/dL (26-217)
[2017-11-23] MEDS: VENLAFAXINE HCL 75 MG TABLET PO SCH (08:39)
[2017-11-23] MEDS: ALLOPURINOL 100 MG TABLET (FP) PO SCH (09:23)
[2017-11-23] MEDS: MUPIROCIN 2% TOPICAL OINTMENT FOR DECOLONIZATION NS SCH ×2 (09:23→22:30)
[2017-11-23] MEDS ORDERED: PORTA CATH FLUSH 10 ML IVPUSH PRN (10:17)
[2017-11-23] MEDS: ACETAMINOPHEN 325 MG TABLET (FP) PO SCH ×2 (15:42→16:39)
--- NOTE | 2017-11-23 17:42 | PN ---
Progress Note (short form) - Note Progress Note: Subjective: The patient was seen and examined at the bedside, she has no complaints at this time Current Medications Generic Name Dose Route Start Last Admin Trade Name Fiorella PRN Reason Stop Dose Admin Acetaminophen 650 mg 11/23/17 14:51 11/23/17 16:39 Tylenol - PO 11/26/17 17:01 Not Given Q2D@1700 [facility] Allopurinol 100 mg 11/24/17 10:00 Zyloprim - PO DAILY [facility] Chlorhexidine Gluconate 1 applic 11/23/17 22:00 Hibiclens For Decolonization - TP HS [facility] Levothyroxine Sodium 75 mcg 11/24/17 07:00 Synthroid - PO DAILY@0700 [facility] Mupirocin 1 applic 11/23/17 22:00 Bactroban Ointment (For Decolonization) - NS 11/28/17 21:59 BID [facility] Venlafaxine HCl 75 mg 11/24/17 08:00 Effexor - PO DAILY@0800 [facility] Objective: Vital Signs Period Temp Pulse Resp BP Sys/Francis Pulse Ox Last 24 Hr 98.3 F-99.1 F 70-94 15-24 94-114/40-80 99-99 Physical Exam: General: NAD, A&Ox3 Neck: Right plasmapheresis catheter in place Lungs: CTA bilaterally Heart: RRR, S1S2 Abd: Soft, non-tender. Normoactive bowel sounds CBCD WBC 7.1 K/mm3 (4.0-10.0) 11/22/17 13:45 RBC 3.29 M/mm3 (3.60-5.2) L 11/22/17 13:45 Hgb 10.0 GM/dL (10.7-15.3) L 11/22/17 13:45 Hct 30.1 % (32.4-45.2) L 11/22/17 13:45 MCV 91.5 fl (80-96) 11/22/17 13:45 MCHC 33.2 g/dl (32.0-36.0) 11/22/17 13:45 RDW 19.3 % (11.6-15.6) H 11/22/17 13:45 Plt Count 152 K/MM3 (134-434) 11/22/17 13:45 MPV 8.8 fl (7.5-11.1) 11/22/17 13:45 CMP Sodium 142 mmol/L (136-145) 11/22/17 05:30 Potassium 4.6 mmol/L (3.5-5.1) 11/22/17 05:30 Chloride 112 mmol/L (98-107) H 11/22/17 05:30 Carbon Dioxide 25 mmol/L (21-32) 11/22/17 05:30 Anion Gap 5 MMOL/L (8-16) L 11/22/17 05:30 BUN 23 mg/dL (7-18) H 11/22/17 05:30 Creatinine 0.8 mg/dL (0.55-1.02) 11/22/17 05:30 Creat Clearance w eGFR > 60 (>60) 11/22/17 05:30 Random Glucose 93 mg/dL (74-106) 11/22/17 05:30 Calcium 9.0 mg/dL (8.5-10.1) 11/22/17 05:30 Total Bilirubin 0.3 mg/dL (0.2-1.0) 11/21/17 05:30 AST 8 U/L (15-37) L 11/21/17 05:30 ALT 10 U/L (12-78) L 11/21/17 05:30 Alkaline Phosphatase 31 U/L (45-117) L D 11/21/17 05:30 Total Protein 6.9 g/dl (6.4-8.2) 11/21/17 05:30 Albumin 4.1 g/dl (3.4-5.0) 11/21/17 05:30 Assessment: This is an 82 year old female with PMHx of non-hodgkin lymphoma ( diagnosed in 2002), Waldenstom's Macroglobulinemia, hypothyroidism, who presented to the hospital for plasmaphoresis after feeling dizzy and unsteady. Plan: 1) Non-hodgkin lymphoma Waldenstom's Macroglobulinemia - Dx 2002, 2011 Rituxin (no significant response), 2012 R-CHOP with R-CVP that decreased IgM to 1400 - IgM >12,000 prior to admission, IgM 11/22 2697 - S/p #3/5 plasmapheresis yesterday - Monitor fibrinogen, PT, PTT, Mg, Ca - Continue Allopurinol - Transferred out of ICU today - Appreciate oncology consult 2) SHEFALI - Resolved 3) Hypothyroidism - Continue Synthroid 4) Dizziness - Resolved - Meclizine 5) F/E/N: - Monitor electrolytes - Regular diet 6) Prophylaxis: - Lovenox 40mg sq daily 7) Dispo: - Patient continues to require inpatient care CODE STATUS: FULL CODE Visit type - Emergency Visit Emergency Visit: Yes ED Registration Date: 11/18/17 Care time: The patient presented to the Emergency Department on the above date and was hospitalized for further evaluation of their emergent condition. - New Patient This patient is new to me today: No - Critical Care Critical Care patient: No
[2017-11-23] MEDS: CHLORHEXIDINE GLUCONATE 4% CLEANSER FOR DECOLONIZATION TP SCH (22:39)
--- NOTE | 2017-11-23 23:11 | PN ---
Progress Note (short form) - Note Progress Note: Patient seen and examined Denies any complaints AFVSS Cor: RSR, No murmurs, No gallops Lungs: Clear to P&A Abd: Soft, Normal bowel sounds, No organomegaly Ext:No significant edema Labs/Meds reviewed A/P 82 y/o patient with Waldenstorms macroglobulinemia s/p 3/5 plasmapheresis 11/22 s/p 5 units cryoprecipitate Monitoring PT/PTT/Fibrinogen/Mg/Ca/cbc/cmp Ig M before --2957 g/dl will discuss regarding 2 more sessions of pheresis versus holding
[2017-11-24] MEDS: LEVOTHYROXINE NA 75 MCG TABLET (FP) PO SCH (06:05)
[2017-11-24 07:45] LABS: ALBUMIN 3.9 g/dl (3.4-5.0); BLOOD UREA NITROGEN 25 mg/dL (7-18); CHLORIDE 113 mmol/L (98-107); GLUCOSE,RANDOM 88 mg/dL (74-106); PHOSPHOROUS 2.7 mg/dL (2.5-4.9); SGOT/AST 14 U/L (15-37); SODIUM 143 mmol/L (136-145)
[2017-11-24 07:48] LABS: ALK PHOS 38 U/L (45-117); ANION GAP 7 MMOL/L (8-16); BILIRUBIN,TOTAL 0.7 mg/dL (0.2-1.0); CALCIUM 8.7 mg/dL (8.5-10.1); CO2 23 mmol/L (21-32); CREATININE 0.8 mg/dL (0.55-1.02); MAGNESIUM 2.1 mg/dL (1.8-2.4); SGPT/ALT 13 U/L (12-78); TOT PROT 6.9 g/dl (6.4-8.2)
[2017-11-24 08:27] LABS: BASO % 1.1 % (0-2.0); EOS % 2.2 % (0-4.5); HEMATOCRIT 30.8 % (32.4-45.2); LYMPH % 38.7 % (8-40); MCH 29.7 pg (25.7-33.7); MCHC 32.6 g/dl (32.0-36.0); MEAN CELL VOLUME 91.2 fl (80-96); MEAN PLT VOLUME 8.6 fl (7.5-11.1); MONO % 14.6 % (3.8-10.2); NEUT % 43.4 % (42.8-82.8); PLATELET COUNT 156 K/MM3 (134-434); RBC 3.37 M/mm3 (3.60-5.2); RDW 19.3 % (11.6-15.6); WHITE BLOOD COUNT 4.6 K/mm3 (4.0-10.0)
[2017-11-24] MEDS ORDERED: PT OWN MED DRAWER 7, Y5N ONE (08:57)
[2017-11-24] MEDS: ALLOPURINOL 100 MG TABLET (FP) PO SCH (09:04)
[2017-11-24] MEDS: VENLAFAXINE HCL 75 MG TABLET PO SCH (09:05)
[2017-11-24] MEDS: MUPIROCIN 2% TOPICAL OINTMENT FOR DECOLONIZATION NS SCH ×2 (10:01→22:13)
--- NOTE | 2017-11-24 11:10 | PN ---
Progress Note (short form) - Note Progress Note: Subjective: The patient was seen and examined at the bedside, she has no complaints at this time Current Medications Generic Name Dose Route Start Last Admin Trade Name Fiorella PRN Reason Stop Dose Admin Acetaminophen 650 mg 11/23/17 14:51 11/23/17 16:39 Tylenol - PO 11/26/17 17:01 Not Given Q2D@1700 [facility] Allopurinol 100 mg 11/24/17 10:00 Zyloprim - PO DAILY [facility] Chlorhexidine Gluconate 1 applic 11/23/17 22:00 Hibiclens For Decolonization - TP HS [facility] Levothyroxine Sodium 75 mcg 11/24/17 07:00 Synthroid - PO DAILY@0700 [facility] Mupirocin 1 applic 11/23/17 22:00 Bactroban Ointment (For Decolonization) - NS 11/28/17 21:59 BID [facility] Venlafaxine HCl 75 mg 11/24/17 08:00 Effexor - PO DAILY@0800 [facility] Objective: Vital Signs Period Temp Pulse Resp BP Sys/Francis Pulse Ox Last 24 Hr 98.3 F-99.1 F 70-94 15-24 94-114/40-80 99-99 Physical Exam: General: NAD, A&Ox3 Neck: Right plasmapheresis catheter in place Lungs: CTA bilaterally Heart: RRR, S1S2 Abd: Soft, non-tender. Normoactive bowel sounds CBCD WBC 4.6 K/mm3 (4.0-10.0) 11/24/17 08:20 RBC 3.37 M/mm3 (3.60-5.2) L 11/24/17 08:20 Hgb 10.0 GM/dL (10.7-15.3) L 11/24/17 08:20 Hct 30.8 % (32.4-45.2) L 11/24/17 08:20 MCV 91.2 fl (80-96) 11/24/17 08:20 MCHC 32.6 g/dl (32.0-36.0) 11/24/17 08:20 RDW 19.3 % (11.6-15.6) H 11/24/17 08:20 Plt Count 156 K/MM3 (134-434) D 11/24/17 08:20 MPV 8.6 fl (7.5-11.1) 11/24/17 08:20 CMP Sodium 143 mmol/L (136-145) 11/24/17 06:49 Potassium 5.0 mmol/L (3.5-5.1) 11/24/17 06:49 Chloride 113 mmol/L (98-107) H 11/24/17 06:49 Carbon Dioxide 23 mmol/L (21-32) 11/24/17 06:49 Anion Gap 7 MMOL/L (8-16) L 11/24/17 06:49 BUN 25 mg/dL (7-18) H 11/24/17 06:49 Creatinine 0.8 mg/dL (0.55-1.02) 11/24/17 06:49 Creat Clearance w eGFR > 60 (>60) 11/24/17 06:49 Random Glucose 88 mg/dL (74-106) 11/24/17 06:49 Calcium 8.7 mg/dL (8.5-10.1) 11/24/17 06:49 Total Bilirubin 0.7 mg/dL (0.2-1.0) 11/24/17 06:49 AST 14 U/L (15-37) L 11/24/17 06:49 ALT 13 U/L (12-78) 11/24/17 06:49 Alkaline Phosphatase 38 U/L (45-117) L 11/24/17 06:49 Total Protein 6.9 g/dl (6.4-8.2) 11/24/17 06:49 Albumin 3.9 g/dl (3.4-5.0) 11/24/17 06:49 Assessment: This is an 82 year old female with PMHx of non-hodgkin lymphoma ( diagnosed in 2002), Waldenstom's Macroglobulinemia, hypothyroidism, who presented to the hospital for plasmaphoresis after feeling dizzy and unsteady. Plan: 1) Non-hodgkin lymphoma Waldenstom's Macroglobulinemia - Dx 2002, 2011 Rituxin (no significant response), 2012 R-CHOP with R-CVP that decreased IgM to 1400 - IgM >12,000 prior to admission, IgM 11/22 2697 - S/p #3/5 plasmapheresis on 11/22, awaiting further recommendation from oncology regarding further plasmapheresis sessions - Monitor fibrinogen, PT, PTT, Mg, Ca - Continue Allopurinol - Transferred out of ICU today - Appreciate oncology consult 2) SHEFALI - Resolved 3) Hypothyroidism - Continue Synthroid 4) Dizziness - Resolved - Meclizine 5) F/E/N: - Monitor electrolytes - Regular diet 6) Prophylaxis: - Lovenox 40mg sq daily 7) Dispo: - Patient continues to require inpatient care CODE STATUS: FULL CODE Visit type - Emergency Visit Emergency Visit: Yes ED Registration Date: 11/18/17 Care time: The patient presented to the Emergency Department on the above date and was hospitalized for further evaluation of their emergent condition. - New Patient This patient is new to me today: No - Critical Care Critical Care patient: No
[2017-11-24 12:21] LABS: INR 1.04 (0.83-1.09); PROTHROMBIN TIME (PATIENT) 11.7 SEC (9.7-13.0)
[2017-11-24 12:23] LABS: ACTIVATED PTT 30.5 SECONDS (25.2-36.5)
--- NOTE | 2017-11-24 20:14 | PN ---
Physical Exam: SUBJECTIVE: Patient seen and examined at bed side this morning. No complaints. States she feels good. Denies chest pain, sob, cough, palpitation, abdominal pain, nausea or vomiting. No acute overnight events. OBJECTIVE: Vital Signs Period Temp Pulse Resp BP Sys/Francis Pulse Ox Last 24 Hr 98.0 F-99.4 F 75-95 18-20 105-133/47-95 97-99 GENERAL: Elderly female, sitting comfortably in bed, is awake, alert, and fully oriented, in no acute distress. HEAD: Normal with no signs of trauma. EYES: EOM intact, no pallor or icterus. ENT: Ears normal, moist mucous membranes. NECK: Supple, plasma pheresis catheter on the right side of the neck. LUNGS: Breath sounds equal, clear to auscultation bilaterally, no wheezes, no crackles, no accessory muscle use. HEART: Regular rate and rhythm, S1, S2 with soft systolic murmur. ABDOMEN: Soft, nontender, nondistended, normoactive bowel sounds, no guarding, no rebound, no hepatosplenomegaly, no masses. EXTREMITIES: 2+ pulses, warm, well-perfused, no edema. NEUROLOGICAL: No facial droop, Normal speech, gait not observed. PSYCH: Normal mood, normal affect. SKIN: Warm, dry, normal turgor, no rashes or lesions noted Laboratory Results - last 24 hr 11/22/17 11/24/17 11/24/17 13:45 06:49 06:49 WBC RBC Hgb Hct MCV MCH MCHC RDW Plt Count MPV Absolute Neuts (auto) Neutrophils % Neutrophils % (Manual) No Result Required. Lymphocytes % Monocytes % Eosinophils % Basophils % Nucleated RBC % 0 PT with INR INR PTT (Actin FS) Fibrinogen Sodium 143 Potassium 5.0 Chloride 113 H Carbon Dioxide 23 Anion Gap 7 L BUN 25 H Creatinine 0.8 Creat Clearance w eGFR > 60 Random Glucose 88 Calcium 8.7 Phosphorus 2.7 Magnesium 2.1 Total Bilirubin 0.7 AST 14 L ALT 13 Alkaline Phosphatase 38 L Total Protein 6.9 Albumin 3.9 Blood Type A POSITIVE Antibody Screen Negative 11/24/17 11/24/17 11/24/17 06:49 08:20 11:50 WBC 4.6 RBC 3.37 L Hgb 10.0 L Hct 30.8 L MCV 91.2 MCH 29.7 MCHC 32.6 RDW 19.3 H Plt Count 156 MPV 8.6 Absolute Neuts (auto) 2.0 Neutrophils % 43.4 D Neutrophils % (Manual) Lymphocytes % 38.7 D Monocytes % 14.6 H D Eosinophils % 2.2 Basophils % 1.1 Nucleated RBC % 0 PT with INR 11.70 INR 1.04 PTT (Actin FS) 30.5 Fibrinogen 97.0 L* D Sodium Potassium Chloride Carbon Dioxide Anion Gap BUN Creatinine Creat Clearance w eGFR Random Glucose Calcium Phosphorus Magnesium Total Bilirubin AST ALT Alkaline Phosphatase Total Protein Albumin Blood Type Antibody Screen Active Medications Generic Name Dose Route Start Last Admin Trade Name Freq PRN Reason Stop Dose Admin Acetaminophen 650 mg 11/23/17 14:51 11/23/17 16:39 Tylenol - PO 11/26/17 17:01 Not Given Q2D@1700 [facility] Allopurinol 100 mg 11/24/17 10:00 11/24/17 09:04 Zyloprim - PO 100 mg DAILY [facility] Administration Chlorhexidine Gluconate 1 applic 11/23/17 22:00 11/23/17 22:39 Hibiclens For Decolonization - TP 1 applic HS [facility] Administration Levothyroxine Sodium 75 mcg 11/24/17 07:00 11/24/17 06:05 Synthroid - PO 75 mcg DAILY@0700 [facility] Administration Mupirocin 1 applic 11/23/17 22:00 11/24/17 10:01 Bactroban Ointment (For Decolonization) - NS 11/28/17 21:59 Not Given BID [facility] Venlafaxine HCl 75 mg 11/24/17 08:00 11/24/17 09:05 Effexor - PO 75 mg DAILY@0800 [facility] Administration Patient is an 82 year old female with PMHx of non-hodgkin lymphoma (diagnosed in 2002), Waldenstom's Macroglobulinemia, hypothyroidism, who presented to the hospital for plasmapheresis after feeling dizzy and unsteady. ASSESSMENT: - Waldenstorms macroglobulinemia - SHEFALI: resolved -Hypothyroidism -Dizziness- resolved with Meclizine PLAN: Waldenstorms macroglobulinemia Has received 3/5 of plasmapheresis 11/22 Receiving Cryoprecipitate 5 units today (fibrinogen is 97 today) To discuss with Dr. Low regarding Plasmapheresis transfusion today On Allopurinol 100mg PO Daily to prevent tumor lysis syndrome. Normocytic anemia likely from NHL H/H 01/27.8, no need for blood transfusion Watch for any active bleed Transfuse if Hb is < 7 or is actively bleeding Rest as per primary team Plan discussed with the patient. She verbalized understanding. Case discussed with Dr. Wood.
[2017-11-24] MEDS: CHLORHEXIDINE GLUCONATE 4% CLEANSER FOR DECOLONIZATION TP SCH (22:13)
--- NOTE | 2017-11-24 23:16 | PN ---
Teaching Attending Note Name of Resident: Brandy Aleman ATTENDING PHYSICIAN STATEMENT I saw and evaluated the patient. I reviewed the resident's note and discussed the case with the resident. I agree with the resident's findings and plan as documented. 82 y/o patient with Waldenstorms macroglobulinemia s/p 3/ plasmapheresis 11/22 s/p 5 units cryoprecipitate Monitoring PT/PTT/Fibrinogen/Mg/Ca/cbc/cmp Ig M before --2957 g/dl will hold pheresis today transfuse 5 units cryoprecipitate discussed with patient/family at bed side
[2017-11-25] MEDS ORDERED: PT OWN MED DRAWER 7, Y5N ONE ×2 (05:40→09:55)
[2017-11-25] MEDS: LEVOTHYROXINE NA 75 MCG TABLET (FP) PO SCH (06:22)
--- NOTE | 2017-11-25 10:00 | PN ---
Physical Exam: SUBJECTIVE: Patient seen and examined. She has no complaints. OBJECTIVE: Vital Signs Period Temp Pulse Resp BP Sys/Francis Pulse Ox Last 24 Hr 98.1 F-98.9 F 74-89 18-20 113-127/45-57 97 GENERAL: The patient is awake, alert, and fully oriented, in no acute distress. LUNGS: Breath sounds equal, clear to auscultation bilaterally, no wheezes, no crackles, no accessory muscle use. HEART: Regular rate and rhythm, S1, S2 without murmur, rub or gallop. ABDOMEN: Soft, nontender, nondistended, normoactive bowel sounds, no guarding, no rebound, no hepatosplenomegaly, no masses. EXTREMITIES: 2+ pulses, warm, well-perfused, no edema. Laboratory Results - last 24 hr 11/22/17 11/22/17 11/24/17 05:30 13:45 06:49 WBC RBC Hgb Hct MCV MCH MCHC RDW Plt Count MPV Absolute Neuts (auto) Neutrophils % Neutrophils % (Manual) No Result Required. Lymphocytes % Monocytes % Eosinophils % Basophils % Nucleated RBC % Blood Viscosity 1.9 PT with INR INR PTT (Actin FS) Fibrinogen Blood Type A POSITIVE Antibody Screen Negative 11/24/17 11/24/17 11/24/17 06:49 08:20 11:50 WBC 4.6 RBC 3.37 L Hgb 10.0 L Hct 30.8 L MCV 91.2 MCH 29.7 MCHC 32.6 RDW 19.3 H Plt Count 156 MPV 8.6 Absolute Neuts (auto) 2.0 Neutrophils % 43.4 D Neutrophils % (Manual) Lymphocytes % 38.7 D Monocytes % 14.6 H D Eosinophils % 2.2 Basophils % 1.1 Nucleated RBC % 0 Blood Viscosity PT with INR 11.70 INR 1.04 PTT (Actin FS) 30.5 Fibrinogen 97.0 L* D Blood Type Antibody Screen Active Medications Generic Name Dose Route Start Last Admin Trade Name Freq PRN Reason Stop Dose Admin Acetaminophen 650 mg 11/23/17 14:51 11/23/17 16:39 Tylenol - PO 11/26/17 17:01 Not Given Q2D@1700 [facility] Allopurinol 100 mg 11/24/17 10:00 11/24/17 09:04 Zyloprim - PO 100 mg DAILY [facility] Administration Levothyroxine Sodium 75 mcg 11/24/17 07:00 11/25/17 06:22 Synthroid - PO 75 mcg DAILY@0700 [facility] Administration Venlafaxine HCl 75 mg 11/24/17 08:00 11/24/17 09:05 Effexor - PO 75 mg DAILY@0800 [facility] Administration ASSESSMENT/PLAN: This is an 82 year old woman with a history of NHL, Waldenstom macroglobulinemia , hypothyroidism, who was admitted for plasmapheresis for WM with complaint of dizziness. 1. Waldenstrom macroglobulinemia - Admitted for plasmapheresis every other day x 5 treatments (first was 11/18) - IgM improving with plasmapheresis - Plasmapheresis was held yesterday secondary to low fibrinogen and she was transfused 5 units cryoprecipitate - Continue Allopurinol - Plan for chemo after plasmapheresis 2. History of non-Hodgkin lymphoma 3. Acute kidney injury - Resolved - Renal US shows 1.3 cm left renal cortical cyst 4. Hypothyroidism - Continue Synthroid 5. Dizziness - Resolved Visit type - Emergency Visit Emergency Visit: Yes ED Registration Date: 11/18/17 Care time: The patient presented to the Emergency Department on the above date and was hospitalized for further evaluation of their emergent condition. - New Patient This patient is new to me today: No - Critical Care Critical Care patient: No - Discharge Referral Referred to [facility] No
[2017-11-25] MEDS: ALLOPURINOL 100 MG TABLET (FP) PO SCH (10:27)
[2017-11-25] MEDS: VENLAFAXINE HCL 75 MG TABLET PO SCH (10:27)
[2017-11-25] MEDS: ACETAMINOPHEN 325 MG TABLET (FP) PO SCH (16:19)
--- NOTE | 2017-11-25 20:05 | PN ---
Physical Exam: HEME/ONC CONSULT SUBJECTIVE: Patient seen and examined at bed side this morning. No complaints. One bowel movement yesterday. Denies chest pain, sob, cough, palpitation, abdominal pain, nausea or vomiting. No acute overnight events. OBJECTIVE: Vital Signs Period Temp Pulse Resp BP Sys/Francis Pulse Ox Last 24 Hr 98.1 F-99.2 F 74-93 18-20 111-116/45-62 97 GENERAL: Elderly female, sitting comfortably in bed, listening to music, is awake, alert, and fully oriented, in no acute distress. HEAD: Normal with no signs of trauma. EYES: EOM intact, no pallor or icterus. ENT: Ears normal, moist mucous membranes. NECK: Supple, plasmapheresis catheter on the right side of the neck. LUNGS: Breath sounds equal, clear to auscultation bilaterally, no wheezes, no crackles, no accessory muscle use. HEART: Regular rate and rhythm, S1, S2 with soft systolic murmur. ABDOMEN: Soft, nontender, nondistended, normoactive bowel sounds, no guarding, no rebound, no hepatosplenomegaly, no masses. EXTREMITIES: 2+ pulses, warm, well-perfused, no edema. NEUROLOGICAL: No facial droop, Normal speech, gait not observed. PSYCH: Normal mood, normal affect. SKIN: Warm, dry, normal turgor, no rashes or lesions noted Laboratory Results - last 24 hr 11/22/17 05:30 Blood Viscosity 1.9 Active Medications Generic Name Dose Route Start Last Admin Trade Name Freq PRN Reason Stop Dose Admin Acetaminophen 650 mg 11/23/17 14:51 11/25/17 16:19 Tylenol - PO 11/26/17 17:01 Not Given Q2D@1700 [facility] Allopurinol 100 mg 11/24/17 10:00 11/25/17 10:27 Zyloprim - PO 100 mg DAILY [facility] Administration Levothyroxine Sodium 75 mcg 11/24/17 07:00 11/25/17 06:22 Synthroid - PO 75 mcg DAILY@0700 [facility] Administration Venlafaxine HCl 75 mg 11/24/17 08:00 11/25/17 10:27 Effexor - PO 75 mg DAILY@0800 [facility] Administration Patient is an 82 year old female with PMHx of non-hodgkin lymphoma (diagnosed in 2002), Waldenstom's Macroglobulinemia, hypothyroidism, who presented to the hospital for plasmapheresis after feeling dizzy and unsteady. ASSESSMENT: - Waldenstorms macroglobulinemia - SHEFALI: resolved -Hypothyroidism -Dizziness- resolved with Meclizine PLAN: Waldenstorms macroglobulinemia Has received 3/5 of plasmapheresis 11/22 and IgM has been improving IgM 4057 ( 11/19)--> 2697 (11/22)----> Pending 11/25 including IgG and IgA Received Cryoprecipitate 5 units yesterday since fibrinogen was 97) Repeat Fibrinogen level in the morning then decide if she needs Plasmapheresis transfusion On Allopurinol 100mg PO Daily to prevent tumor lysis syndrome. Normocytic anemia likely from NHL H/H 01/27.8 (11/24), has been stable Watch for any active bleed Transfuse if Hb is < 7 or is actively bleeding Rest as per primary team. Plan discussed with the patient. She verbalized understanding. Case discussed with Dr. Low.
--- NOTE | 2017-11-25 21:10 | PN ---
Teaching Attending Note Name of Resident: Brandy Aleman ATTENDING PHYSICIAN STATEMENT I saw and evaluated the patient. I reviewed the resident's note and discussed the case with the resident. I agree with the resident's findings and plan as documented. SUBJECTIVE:Patient seen and examined . Son at bedside Improvement in symptoms with decrease in dizziness Viscosity and IgM levels improved Await additional studies to decide about future management Son requests --port be removed --over 5 years old. OBJECTIVE: ASSESSMENT AND PLAN: Problem List - Problems (1) Non-Hodgkin lymphoma Code(s): C85.90 - NON-HODGKIN LYMPHOMA, UNSPECIFIED, UNSPECIFIED SITE Qualifiers: Non-Hodgkin lymphoma type: non-follicular
[2017-11-26] MEDS: LEVOTHYROXINE NA 75 MCG TABLET (FP) PO SCH (06:22)
[2017-11-26 07:42] LABS: BASO % 1.1 % (0-2.0); EOS % 2.4 % (0-4.5); HEMATOCRIT 27.2 % (32.4-45.2); HEMOGLOBIN 8.9 GM/dL (10.7-15.3); MCH 29.6 pg (25.7-33.7); MCHC 32.7 g/dl (32.0-36.0); MEAN CELL VOLUME 90.7 fl (80-96); MEAN PLT VOLUME 8.2 fl (7.5-11.1); MONO % 14.8 % (3.8-10.2); NEUT % 48.7 % (42.8-82.8); PLATELET COUNT 173 K/MM3 (134-434); WHITE BLOOD COUNT 4.5 K/mm3 (4.0-10.0)
[2017-11-26 07:43] LABS: PROTHROMBIN TIME (PATIENT) 11.3 SEC (9.7-13.0)
[2017-11-26 07:53] LABS: ANION GAP 7 MMOL/L (8-16); BLOOD UREA NITROGEN 27 mg/dL (7-18); CALCIUM 8.7 mg/dL (8.5-10.1); CHLORIDE 111 mmol/L (98-107); CO2 24 mmol/L (21-32); CREATININE 0.7 mg/dL (0.55-1.02); GLUCOSE,RANDOM 86 mg/dL (74-106); POTASSIUM 4.7 mmol/L (3.5-5.1); SODIUM 142 mmol/L (136-145)
[2017-11-26 08:08] LABS: IGA IMMUNOGLOBULIN 8 mg/dL (64-422); IGG IMMUNOGLOBULIN 39 mg/dL (700-1600); IGM IMMUNOGLOBULIN 2453 mg/dL (26-217)
[2017-11-26] MEDS ORDERED: PT OWN MED DRAWER 7, Y5N ONE (09:20)
--- NOTE | 2017-11-26 09:29 | PN ---
Progress Note (short form) - Note Progress Note: PT states that she has had 3 plasmaphoresis treatments, the last on 11/22. Awaiting Dr. Lin recommendations on further treatment sessions. Dizziness symptoms improved. Vital Signs Period Temp Pulse Resp BP Sys/Francis Pulse Ox Last 24 Hr 98.2 F-99.2 F 65-93 18-18 100-114/50-62 96 GEN:A&0x3, NAD Neck: R IJ in place. Chest: Right portacath in place/skin intact over catheter CBC, BMP 11/26/17 07:00 11/26/17 07:00 A/P: 82 yo female with a history of waldenstroms macroglobulinemia ( lymphoplasmacytic lymphoma), now with elevated IGM levels Awaiting repeat IgM levels to determine further plasmaphoresis treatments
[2017-11-26] MEDS: VENLAFAXINE HCL 75 MG TABLET PO SCH (09:33)
[2017-11-26] MEDS: ALLOPURINOL 100 MG TABLET (FP) PO SCH (09:33)
--- NOTE | 2017-11-26 10:39 | PN ---
Physical Exam: HEME/ONC CONSULT SUBJECTIVE: Patient seen and examined at bed side this morning. No complaints. One bowel movement yesterday. Denies chest pain, sob, cough, palpitation, abdominal pain, nausea or vomiting. No acute overnight events. OBJECTIVE: Vital Signs Period Temp Pulse Resp BP Sys/Francis Pulse Ox Last 24 Hr 98.2 F-99.2 F 65-93 18-18 100-114/50-62 96 GENERAL: Elderly female, sitting comfortably in bed, listening to music, is awake, alert, and fully oriented, in no acute distress. HEAD: Normal with no signs of trauma. EYES: EOM intact, no pallor or icterus. ENT: Ears normal, moist mucous membranes. NECK: Supple, plasmapheresis catheter on the right side of the neck. LUNGS: Breath sounds equal, clear to auscultation bilaterally, no wheezes, no crackles, no accessory muscle use. HEART: Regular rate and rhythm, S1, S2 with soft systolic murmur. ABDOMEN: Soft, nontender, nondistended, normoactive bowel sounds, no guarding, no rebound, no hepatosplenomegaly, no masses. EXTREMITIES: 2+ pulses, warm, well-perfused, no edema. NEUROLOGICAL: No facial droop, Normal speech, gait not observed. PSYCH: Normal mood, normal affect. SKIN: Warm, dry, normal turgor, no rashes or lesions noted Laboratory Results - last 24 hr 11/25/17 11/26/17 11/26/17 07:20 07:00 07:00 WBC 4.5 RBC 3.00 L Hgb 8.9 L Hct 27.2 L MCV 90.7 MCH 29.6 MCHC 32.7 RDW 19.0 H Plt Count 173 MPV 8.2 Absolute Neuts (auto) 2.2 Neutrophils % 48.7 Lymphocytes % 33.0 Monocytes % 14.8 H Eosinophils % 2.4 Basophils % 1.1 Nucleated RBC % 0 PT with INR INR Fibrinogen 276.0 D Sodium Potassium Chloride Carbon Dioxide Anion Gap BUN Creatinine Creat Clearance w eGFR Random Glucose Calcium IgG 39 L IgA 8 L IgM 2453 H 11/26/17 11/26/17 07:00 07:00 WBC RBC Hgb Hct MCV MCH MCHC RDW Plt Count MPV Absolute Neuts (auto) Neutrophils % Lymphocytes % Monocytes % Eosinophils % Basophils % Nucleated RBC % PT with INR 11.30 INR 1.00 Fibrinogen Sodium 142 Potassium 4.7 Chloride 111 H Carbon Dioxide 24 Anion Gap 7 L BUN 27 H Creatinine 0.7 Creat Clearance w eGFR > 60 Random Glucose 86 Calcium 8.7 IgG IgA IgM Active Medications Generic Name Dose Route Start Last Admin Trade Name Freq PRN Reason Stop Dose Admin Acetaminophen 650 mg 11/23/17 14:51 11/25/17 16:19 Tylenol - PO 11/26/17 17:01 Not Given Q2D@1700 [facility] Allopurinol 100 mg 11/24/17 10:00 11/26/17 09:33 Zyloprim - PO 100 mg DAILY [facility] Administration Levothyroxine Sodium 75 mcg 11/24/17 07:00 11/26/17 06:22 Synthroid - PO 75 mcg DAILY@0700 [facility] Administration Venlafaxine HCl 75 mg 11/24/17 08:00 11/26/17 09:33 Effexor - PO 75 mg DAILY@0800 [facility] Administration Patient is an 82 year old female with PMHx of non-hodgkin lymphoma (diagnosed in 2002), Waldenstom's Macroglobulinemia, hypothyroidism, who presented to the hospital for plasmapheresis after feeling dizzy and unsteady. ASSESSMENT: - Waldenstorms macroglobulinemia - SHEFALI: resolved -Hypothyroidism -Dizziness- resolved with Meclizine PLAN: Waldenstorms macroglobulinemia IgM improving after plasmapheresis IgM 4057 (11/19)--> 2697 (11/22)----> 2453 Has received 3/5 of plasmapheresis 11/22. Plan is to give one more Plasmapheresis tomorrow. Recheck blood work. Fibrinogen level 276. No indication to give cryo. Last Cryoppt transfusion given on 11/24 On Allopurinol 100mg PO Daily to prevent tumor lysis syndrome. Likely would need a chemo as outpatient. Normocytic anemia likely from NHL H/H 10.9/30.8-----> 8.9/27.2 (Drop in Hb) Watch for any active bleed Transfuse if Hb is < 7 or is actively bleeding Rest as per primary team. Plan discussed with the patient. She verbalized understanding. Case discussed with Dr. Rm Visit type - Emergency Visit Emergency Visit: Yes ED Registration Date: 11/18/17 Care time: The patient presented to the Emergency Department on the above date and was hospitalized for further evaluation of their emergent condition. - New Patient This patient is new to me today: No - Critical Care Critical Care patient: No - Discharge Referral Referred to [facility] No
--- NOTE | 2017-11-26 16:46 | PN ---
Physical Exam: SUBJECTIVE: Patient seen and examined at the bedside. Feels well, in no acute distress. States dizziness is resolved and she is able to ambulate to the bathroom without any dizziness. OBJECTIVE: Vital Signs Period Temp Pulse Resp BP Sys/Francis Pulse Ox Last 24 Hr 98.2 F-98.8 F 65-98 17-20 100-136/50-64 96 GENERAL: The patient is awake, alert, and fully oriented, in no acute distress. HEAD: Normal with no signs of trauma. EYES: PERRL, extraocular movements intact, sclera anicteric, conjunctiva clear. No ptosis. ENT: Ears normal, nares patent, oropharynx clear without exudates, moist mucous membranes. NECK: Trachea midline, full range of motion, supple. central line placed on right jugular for plasmapharemsis LUNGS: Breath sounds equal, clear to auscultation bilaterally, no wheezes, no crackles, no accessory muscle use. HEART: Regular rate and rhythm ABDOMEN: Soft, nontender, nondistended, normoactive bowel sounds, no guarding EXTREMITIES: no edema. NEUROLOGICAL: Normal speech, gait not observed. PSYCH: Normal mood, normal affect. SKIN: Warm, dry, normal turgor, no rashes or lesions noted Laboratory Results - last 24 hr 11/25/17 11/26/17 11/26/17 07:20 07:00 07:00 WBC 4.5 RBC 3.00 L Hgb 8.9 L Hct 27.2 L MCV 90.7 MCH 29.6 MCHC 32.7 RDW 19.0 H Plt Count 173 MPV 8.2 Absolute Neuts (auto) 2.2 Neutrophils % 48.7 Lymphocytes % 33.0 Monocytes % 14.8 H Eosinophils % 2.4 Basophils % 1.1 Nucleated RBC % 0 PT with INR INR Fibrinogen 276.0 D Sodium Potassium Chloride Carbon Dioxide Anion Gap BUN Creatinine Creat Clearance w eGFR Random Glucose Calcium IgG 39 L IgA 8 L IgM 2453 H 11/26/17 11/26/17 07:00 07:00 WBC RBC Hgb Hct MCV MCH MCHC RDW Plt Count MPV Absolute Neuts (auto) Neutrophils % Lymphocytes % Monocytes % Eosinophils % Basophils % Nucleated RBC % PT with INR 11.30 INR 1.00 Fibrinogen Sodium 142 Potassium 4.7 Chloride 111 H Carbon Dioxide 24 Anion Gap 7 L BUN 27 H Creatinine 0.7 Creat Clearance w eGFR > 60 Random Glucose 86 Calcium 8.7 IgG IgA IgM Active Medications Generic Name Dose Route Start Last Admin Trade Name Fiorella PRN Reason Stop Dose Admin Acetaminophen 650 mg 11/23/17 14:51 11/25/17 16:19 Tylenol - PO 11/26/17 17:01 Not Given Q2D@1700 [facility] Allopurinol 100 mg 11/24/17 10:00 11/26/17 09:33 Zyloprim - PO 100 mg DAILY [facility] Administration Levothyroxine Sodium 75 mcg 11/24/17 07:00 11/26/17 06:22 Synthroid - PO 75 mcg DAILY@0700 [facility] Administration Venlafaxine HCl 75 mg 11/24/17 08:00 11/26/17 09:33 Effexor - PO 75 mg DAILY@0800 [facility] Administration ASSESSMENT/PLAN: Patient is an 82 year old female with a significant past medical history of non- hodgkin's lymphoma s/p chemotherapy. She was diagnosed in 2002 and has undergone chemotherapy. Her other medical history includes waldenstrom's macroglobulinemia and hypothyrodisim. Patient presents to the ED with dizziness and unsteady gait and was found to have an elevated IGM protein. She was admitted for plasmapharesis and has received 3/5 of this therapy. Heme/Onc: Non-Hodgkin's lymphoma: Waldenstrom's Macroglobulinemia. Patient comes in for dizziness/unsteady gait. She has clinically improved since starting plasmapheresis. She has received 3/5 doses and reports that she is no longer experiencing dizziness. IgM improving 5900>2453 since start of plasmapharesis. Fibrogen level 276. Repeat levels in a.m. and monitor symptoms. Continuation of plasmapheresis per oncologist. On allopurinol 10mg daily as per protocol for prevention of tumor lysis Hematology Anemia likely secondary to underlying disease. No signs of bleeding, no dyspnea or any other discomfort. Monitor hmg/hct daily or sooner if she develops symptoms. Hematology following. Endocrine: Hypothyroidsm: On Synthroid 75mcg daily Renal: SHEFALI, resolved. fen tolerating PO monitor electrolyte good appetite reported, follow up with die maker stamping ordered prophy: SCDs full code Visit type - Emergency Visit Emergency Visit: Yes ED Registration Date: 11/18/17 Care time: The patient presented to the Emergency Department on the above date and was hospitalized for further evaluation of their emergent condition. - New Patient This patient is new to me today: Yes Date on this admission: 11/26/17 - Critical Care Critical Care patient: No - Discharge Referral Referred to [facility] Med [facility].: No
--- NOTE | 2017-11-26 17:39 | PN ---
Teaching Attending Note Name of Resident: Brandy Aleman ATTENDING PHYSICIAN STATEMENT I saw and evaluated the patient. I reviewed the resident's note and discussed the case with the resident. I agree with the resident's findings and plan as documented. ASSESSMENT AND PLAN: Recurrence of her Waldenstrom's with very high IgM levels, and symptoms of hyperviscosity, now significantly improved following 3 occurrences of plasmapheresis. Awaiting new IgM levels. Set up for 4th treatment - will proceed with that. Will follow up with Dr. Low as an outpatient for initiation of chemotherapy.
[2017-11-27] MEDS: LEVOTHYROXINE NA 75 MCG TABLET (FP) PO SCH (06:07)
[2017-11-27] MEDS ORDERED: PT OWN MED DRAWER 7, Y5N ONE (09:21)
[2017-11-27] MEDS: ALLOPURINOL 100 MG TABLET (FP) PO SCH (09:25)
[2017-11-27] MEDS: VENLAFAXINE HCL 75 MG TABLET PO SCH (09:25)
[2017-11-27 09:32] LABS: BASO % 1.4 % (0-2.0); EOS % 2.2 % (0-4.5); HEMATOCRIT 26.9 % (32.4-45.2); HEMOGLOBIN 9.1 GM/dL (10.7-15.3); MCH 30.7 pg (25.7-33.7); MCHC 33.8 g/dl (32.0-36.0); MEAN CELL VOLUME 90.9 fl (80-96); MEAN PLT VOLUME 8.1 fl (7.5-11.1); MONO % 12.7 % (3.8-10.2); NEUT % 49.7 % (42.8-82.8); PLATELET COUNT 200 K/MM3 (134-434); RBC 2.96 M/mm3 (3.60-5.2); RDW 19.3 % (11.6-15.6); WHITE BLOOD COUNT 4.1 K/mm3 (4.0-10.0)
[2017-11-27 09:46] LABS: CHLORIDE 108 mmol/L (98-107); POTASSIUM 4.7 mmol/L (3.5-5.1); SODIUM 142 mmol/L (136-145)
[2017-11-27 09:49] LABS: INR 1.02 (0.83-1.09); PROTHROMBIN TIME (PATIENT) 11.5 SEC (9.7-13.0)
[2017-11-27 09:52] LABS: ACTIVATED PTT 27.5 SECONDS (25.2-36.5)
[2017-11-27 09:57] LABS: ALBUMIN 3.3 g/dl (3.4-5.0); ALK PHOS 55 U/L (45-117); ANION GAP 8 MMOL/L (8-16); BILIRUBIN,TOTAL 0.4 mg/dL (0.2-1.0); BLOOD UREA NITROGEN 29 mg/dL (7-18); CALCIUM 8.7 mg/dL (8.5-10.1); CO2 26 mmol/L (21-32); CREATININE 0.8 mg/dL (0.55-1.02); GLUCOSE,RANDOM 155 mg/dL (74-106); SGOT/AST 17 U/L (15-37); SGPT/ALT 18 U/L (12-78); TOT PROT 7.3 g/dl (6.4-8.2)
--- NOTE | 2017-11-27 10:29 | PN ---
Physical Exam: SUBJECTIVE: Patient seen and examined at the bedside. Denies any further episodes of dizziness. able to ambulate without difficulty. reports good appetite. OBJECTIVE: Vital Signs Period Temp Pulse Resp BP Sys/Francis Pulse Ox Last 24 Hr 98.2 F-98.8 F 79-94 18-20 115-136/40-64 GENERAL: The patient is awake, alert, and fully oriented, in no acute distress. HEAD: Normal with no signs of trauma. EYES: PERRL, extraocular movements intact, sclera anicteric, conjunctiva clear. No ptosis. ENT: Ears normal, nares patent, oropharynx clear without exudates, moist mucous membranes. NECK: Trachea midline, full range of motion, supple. central line placed on right jugular for plasmapharemsis LUNGS: Breath sounds equal, clear to auscultation bilaterally, no wheezes, no crackles, no accessory muscle use. HEART: Regular rate and rhythm ABDOMEN: Soft, nontender, nondistended, normoactive bowel sounds, no guarding EXTREMITIES: no edema. NEUROLOGICAL: Normal speech, gait not observed. PSYCH: Normal mood, normal affect. SKIN: Warm, dry, normal turgor, no rashes or lesions noted Laboratory Results - last 24 hr 11/27/17 11/27/17 11/27/17 09:10 09:10 09:10 WBC 4.1 RBC 2.96 L Hgb 9.1 L Hct 26.9 L MCV 90.9 MCH 30.7 MCHC 33.8 RDW 19.3 H Plt Count 200 MPV 8.1 Absolute Neuts (auto) 2.0 Neutrophils % 49.7 Lymphocytes % 34.0 Monocytes % 12.7 H Eosinophils % 2.2 Basophils % 1.4 Nucleated RBC % 0 PT with INR 11.50 INR 1.02 PTT (Actin FS) 27.5 Sodium 142 Potassium 4.7 Chloride 108 H Carbon Dioxide 26 Anion Gap 8 BUN 29 H Creatinine 0.8 Creat Clearance w eGFR > 60 Random Glucose 155 H Calcium 8.7 Magnesium 2.0 Total Bilirubin 0.4 AST 17 ALT 18 Alkaline Phosphatase 55 D Total Protein 7.3 Albumin 3.3 L Active Medications Generic Name Dose Route Start Last Admin Trade Name Freq PRN Reason Stop Dose Admin Allopurinol 100 mg 11/24/17 10:00 11/27/17 09:25 Zyloprim - PO 100 mg DAILY [facility] Administration Levothyroxine Sodium 75 mcg 11/24/17 07:00 11/27/17 06:07 Synthroid - PO 75 mcg DAILY@0700 [facility] Administration Venlafaxine HCl 75 mg 11/24/17 08:00 11/27/17 09:25 Effexor - PO 75 mg DAILY@0800 [facility] Administration ASSESSMENT/PLAN: Patient is an 82 year old female with a significant past medical history of non- hodgkin's lymphoma: waldenstrom's macroglobulinemia (s/p chemo) and hypothyrodisim. Patient presents to the ED with dizziness and unsteady gait and was found to have an elevated IGM protein. She was admitted for plasmapharesis and has received 3/5 of this therapy. She is scheduled for her 4/5 dose of plasmapharesis today. Heme/Onc: Non-Hodgkin's lymphoma: waldenstrom's macroglobulinemia. Patient comes in for dizziness/unsteady gait. She has clinically improved since starting plasmapheresis. She has received 3/5 doses and reports that she is no longer experiencing dizziness and able to ambulate unassisted. She is for her 4th plasmapheresis today. IgM improving 5900>2453 since start of plasmapharesis. Continuation of plasmapheresis per oncologist. On allopurinol 10mg daily as per protocol for prevention of tumor lysis. Hematology Anemia likely secondary to underlying malignancy. No signs of bleeding, no dyspnea or any other discomfort. Monitor hmg/hct daily or sooner if she develops symptoms. Hematology following. Endocrine: Hypothyroidsm: On Synthroid 75mcg daily Renal: SHEFALI, resolved. Electrolytes: Corrected calcium 9.3. monitor electrolytes with daily labs. fen tolerating PO monitor electrolytes good appetite reported, follow up with mica splitter ordered prophy: SCDs bilaterally. full code Visit type - Emergency Visit Emergency Visit: Yes ED Registration Date: 11/18/17 Care time: The patient presented to the Emergency Department on the above date and was hospitalized for further evaluation of their emergent condition. - New Patient This patient is new to me today: No - Critical Care Critical Care patient: No - Discharge Referral Referred to [facility] Med P.C.: No
[2017-11-27] MEDS ORDERED: ACETAMINOPHEN 325 MG TABLET (FP) PO ONE (12:15)
[2017-11-27] MEDS ORDERED: diphenhydrAMINE HCL 25 MG CAPSULE (FP) PO ONE (12:15)
[2017-11-27] MEDS ORDERED: CALCIUM GLUCONATE 10% - 1,000 MG/10 ML VIAL IVPB ONE (12:30)
[2017-11-27] MEDS ORDERED: ALBUMIN HUMAN 5% 500 ML IV SOLUTION IVPB ONE (12:30)
--- NOTE | 2017-11-27 13:02 | PN ---
Physical Exam: SUBJECTIVE: Patient seen and examined at bed side this morning. No complaints. Denies chest pain, sob, cough, palpitation, abdominal pain, nausea or vomiting. Last bowel movement was yesterday. About to receive Plasmapheresis. No acute overnight events. OBJECTIVE: Vital Signs Period Temp Pulse Resp BP Sys/Francis Pulse Ox Last 24 Hr 98.2 F-98.8 F 79-94 18-20 115-136/40-64 GENERAL: Elderly female, sitting comfortably in bed, listening to music, is awake, alert, and fully oriented, in no acute distress. HEAD: Normal with no signs of trauma. EYES: EOM intact, no pallor or icterus. ENT: Ears normal, moist mucous membranes. NECK: Supple, plasmapheresis catheter on the right side of the neck. LUNGS: Breath sounds equal, clear to auscultation bilaterally, no wheezes, no crackles, no accessory muscle use. HEART: Regular rate and rhythm, S1, S2 with soft systolic murmur. ABDOMEN: Soft, nontender, nondistended, normoactive bowel sounds, no guarding, no rebound, no hepatosplenomegaly, no masses. EXTREMITIES: 2+ pulses, warm, well-perfused, no edema. NEUROLOGICAL: No facial droop, Normal speech, gait not observed. PSYCH: Normal mood, normal affect. SKIN: Warm, dry, normal turgor, no rashes or lesions noted Laboratory Results - last 24 hr 11/27/17 11/27/17 11/27/17 09:10 09:10 09:10 WBC 4.1 RBC 2.96 L Hgb 9.1 L Hct 26.9 L MCV 90.9 MCH 30.7 MCHC 33.8 RDW 19.3 H Plt Count 200 MPV 8.1 Absolute Neuts (auto) 2.0 Neutrophils % 49.7 Lymphocytes % 34.0 Monocytes % 12.7 H Eosinophils % 2.2 Basophils % 1.4 Nucleated RBC % 0 PT with INR 11.50 INR 1.02 PTT (Actin FS) 27.5 Fibrinogen Sodium 142 Potassium 4.7 Chloride 108 H Carbon Dioxide 26 Anion Gap 8 BUN 29 H Creatinine 0.8 Creat Clearance w eGFR > 60 Random Glucose 155 H Calcium 8.7 Magnesium 2.0 Total Bilirubin 0.4 AST 17 ALT 18 Alkaline Phosphatase 55 D Total Protein 7.3 Albumin 3.3 L 11/27/17 09:10 WBC RBC Hgb Hct MCV MCH MCHC RDW Plt Count MPV Absolute Neuts (auto) Neutrophils % Lymphocytes % Monocytes % Eosinophils % Basophils % Nucleated RBC % PT with INR INR PTT (Actin FS) Fibrinogen 307.0 Sodium Potassium Chloride Carbon Dioxide Anion Gap BUN Creatinine Creat Clearance w eGFR Random Glucose Calcium Magnesium Total Bilirubin AST ALT Alkaline Phosphatase Total Protein Albumin Active Medications Generic Name Dose Route Start Last Admin Trade Name Freq PRN Reason Stop Dose Admin Allopurinol 100 mg 11/24/17 10:00 11/27/17 09:25 Zyloprim - PO 100 mg DAILY [facility] Administration Levothyroxine Sodium 75 mcg 11/24/17 07:00 11/27/17 06:07 Synthroid - PO 75 mcg DAILY@0700 [facility] Administration Venlafaxine HCl 75 mg 11/24/17 08:00 11/27/17 09:25 Effexor - PO 75 mg DAILY@0800 [facility] Administration Patient is an 82 year old female with PMHx of non-hodgkin lymphoma (diagnosed in 2002), Waldenstom's Macroglobulinemia, hypothyroidism, who presented to the hospital for plasmapheresis after feeling dizzy and unsteady. ASSESSMENT: - Waldenstorms macroglobulinemia - SHEFALI: resolved -Hypothyroidism -Dizziness- resolved with Meclizine PLAN: Waldenstorms macroglobulinemia Patient admitted for dizziness likely secondary to NHL. 3/ plasmapheresis was given with symptomatic relief. IgM improving after plasmapheresis IgM 4057 (11/19)--> 2697 (11/22)----> 2453 11/25/ plasmapheresis to be given today. Recheck blood tomorrow: CBC, CMP, PT, PTT, Fibrinogen. If the labs are normal, can be discharged. But needs close monitoring as outpatient. Likely would need a chemo in the future. On Allopurinol 100mg PO Daily to prevent tumor lysis syndrome. Normocytic anemia likely from NHL: Stable. H/H 8.9/27.2 ----> 9.1/26.9 Watch for any active bleed Transfuse if Hb is < 7 or is actively bleeding Rest as per primary team. Plan discussed with the patient. She verbalized understanding. Case discussed with Dr. Wood.
[2017-11-27 21:15] LABS: BASO % 1.1 % (0-2.0); EOS % 1.5 % (0-4.5); HEMATOCRIT 29.1 % (32.4-45.2); HEMOGLOBIN 9.7 GM/dL (10.7-15.3); LYMPH % 35.5 % (8-40); MCH 30.2 pg (25.7-33.7); MCHC 33.4 g/dl (32.0-36.0); MEAN CELL VOLUME 90.6 fl (80-96); MEAN PLT VOLUME 8.5 fl (7.5-11.1); MONO % 11.7 % (3.8-10.2); NEUT % 50.2 % (42.8-82.8); PLATELET COUNT 201 K/MM3 (134-434); RBC 3.22 M/mm3 (3.60-5.2); WHITE BLOOD COUNT 6.4 K/mm3 (4.0-10.0)
[2017-11-27 21:34] LABS: INR 1.13 (0.83-1.09); PROTHROMBIN TIME (PATIENT) 12.8 SEC (9.7-13.0)
[2017-11-27 21:38] LABS: ALBUMIN 4.6 g/dl (3.4-5.0); ALK PHOS 36 U/L (45-117); ANION GAP 6 MMOL/L (8-16); BILIRUBIN,TOTAL 0.5 mg/dL (0.2-1.0); BLOOD UREA NITROGEN 34 mg/dL (7-18); CALCIUM 8.6 mg/dL (8.5-10.1); CHLORIDE 112 mmol/L (98-107); CO2 25 mmol/L (21-32); CREATININE 1.1 mg/dL (0.55-1.02); GLUCOSE,RANDOM 111 mg/dL (74-106); SGOT/AST 10 U/L (15-37); SGPT/ALT 12 U/L (12-78); SODIUM 143 mmol/L (136-145); TOT PROT 6.9 g/dl (6.4-8.2)
--- NOTE | 2017-11-27 23:16 | PN ---
Teaching Attending Note Name of Resident: Brandy Aleman ATTENDING PHYSICIAN STATEMENT I saw and evaluated the patient. I reviewed the resident's note and discussed the case with the resident. I agree with the resident's findings and plan as documented. 82 y/o patient with Waldenstorms macroglobulinemia s/p 4th plasmapheresis 11/27 Monitoring PT/PTT/Fibrinogen/Mg/Ca/cbc/cmp Ig M before --2453 g/dl for possible removvalof caheeter and portacath ? on Friday? will follow
[2017-11-28] MEDS: LEVOTHYROXINE NA 75 MCG TABLET (FP) PO SCH (06:20)
[2017-11-28 07:13] LABS: BASO % 1.4 % (0-2.0); EOS % 2.4 % (0-4.5); HEMATOCRIT 27.8 % (32.4-45.2); HEMOGLOBIN 9.1 GM/dL (10.7-15.3); LYMPH % 40.1 % (8-40); MCHC 32.8 g/dl (32.0-36.0); MEAN CELL VOLUME 91.3 fl (80-96); MEAN PLT VOLUME 8.5 fl (7.5-11.1); MONO % 14.3 % (3.8-10.2); NEUT % 41.8 % (42.8-82.8); PLATELET COUNT 174 K/MM3 (134-434); RBC 3.04 M/mm3 (3.60-5.2); RDW 18.9 % (11.6-15.6); WHITE BLOOD COUNT 4.4 K/mm3 (4.0-10.0)
[2017-11-28 07:38] LABS: INR 1.13 (0.83-1.09); PROTHROMBIN TIME (PATIENT) 12.8 SEC (9.7-13.0)
[2017-11-28 07:41] LABS: ACTIVATED PTT 30.9 SECONDS (25.2-36.5)
--- NOTE | 2017-11-28 08:44 | PN ---
Progress Note (short form) - Note Progress Note: Ptient seen and examined Completed 4th pheresis. Tolerated well . Will discontinue same. Will monitor and if stable will consider discharge for AM Check labs/ coags . Last Vital Signs Temp Pulse Resp BP Pulse Ox 98.3 F 70 18 113/49 96 11/28/17 07:08 11/28/17 07:08 11/28/17 07:08 11/28/17 07:08 11/27/17 21:58 HEENT: OUMAR, EOM Intact Oropharynx: No thrush, No mucositis Neck: Supple catheter in place Cor: RSR, No murmurs, No gallops Lungs: Clear to P&A Abd: Soft, Normal bowel sounds, No organomegaly Ext:No significant edema Skin: No rashes, Integument intact CBC, BMP 11/28/17 06:00 11/27/17 20:40 Current Medications Generic Name Dose Route Start Last Admin Trade Name Freq PRN Reason Stop Dose Admin Allopurinol 100 mg 11/24/17 10:00 11/27/17 09:25 Zyloprim - PO 100 mg DAILY [facility] Administration Levothyroxine Sodium 75 mcg 11/24/17 07:00 11/28/17 06:20 Synthroid - PO 75 mcg DAILY@0700 [facility] Administration Venlafaxine HCl 75 mg 11/24/17 08:00 11/27/17 09:25 Effexor - PO 75 mg DAILY@0800 [facility] Administration Impression: Waldenstrom's macroglobulinemia S/P plasmapheresis x 4 Decrease in symptoms of hyperviscosity and decrease in IgM Plan: Remove catheter Culture port Check coags. ? discharge 11/29 if stable. Problem List - Problems (1) Non-Hodgkin lymphoma Code(s): C85.90 - NON-HODGKIN LYMPHOMA, UNSPECIFIED, UNSPECIFIED SITE Qualifiers: Non-Hodgkin lymphoma type: non-follicular
[2017-11-28 09:27] LABS: ALBUMIN 3.9 g/dl (3.4-5.0); ALK PHOS 33 U/L (45-117); ANION GAP 6 MMOL/L (8-16); BILIRUBIN,TOTAL 0.4 mg/dL (0.2-1.0); BLOOD UREA NITROGEN 29 mg/dL (7-18); CALCIUM 8.2 mg/dL (8.5-10.1); CHLORIDE 113 mmol/L (98-107); CO2 24 mmol/L (21-32); CREATININE 0.8 mg/dL (0.55-1.02); GLUCOSE,RANDOM 85 mg/dL (74-106); POTASSIUM 4.6 mmol/L (3.5-5.1); SGOT/AST 12 U/L (15-37); SGPT/ALT 12 U/L (12-78); SODIUM 143 mmol/L (136-145); TOT PROT 6.4 g/dl (6.4-8.2)
--- NOTE | 2017-11-28 10:05 | PROC ---
Procedure Note Procedure: Right IJ shiley removed without any difficulty. Pressure held for 5 minutes and pressure dressing applied. No bleeding noted.
[2017-11-28] MEDS ORDERED: PT OWN MED DRAWER 7, Y5N ONE (10:16)
[2017-11-28] MEDS: VENLAFAXINE HCL 75 MG TABLET PO SCH (10:16)
[2017-11-28] MEDS: ALLOPURINOL 100 MG TABLET (FP) PO SCH (10:16)
--- NOTE | 2017-11-28 10:24 | PN ---
Physical Exam: SUBJECTIVE: Patient seen and examined at the bedside. Continues to feel well. Able to ambulate without any dizziness, visual defect. Denies any symptoms of lightheadness. OBJECTIVE: discharge likely tomorrow once cleared by oncology. Has received 4 treatments of plasmapharesis right IJ removed today. Vital Signs Period Temp Pulse Resp BP Sys/Francis Pulse Ox Last 24 Hr 98.2 F-98.8 F 64-104 18-95 113-135/49-75 96-98 GENERAL: The patient is awake, alert, and fully oriented, in no acute distress. HEAD: Normal with no signs of trauma. EYES: PERRL, extraocular movements intact, sclera anicteric, conjunctiva clear. No ptosis. ENT: Ears normal, nares patent, oropharynx clear without exudates, moist mucous membranes. NECK: Trachea midline, full range of motion, supple. central line placed on right jugular for plasmapharemsis LUNGS: Breath sounds equal, clear to auscultation bilaterally, no wheezes, no crackles, no accessory muscle use. HEART: Regular rate and rhythm ABDOMEN: Soft, nontender, nondistended, normoactive bowel sounds, no guarding EXTREMITIES: no edema. NEUROLOGICAL: Normal speech, gait not observed. PSYCH: Normal mood, normal affect. SKIN: Warm, dry, normal turgor, no rashes or lesions noted Laboratory Results - last 24 hr 11/22/17 11/27/17 11/27/17 13:45 09:10 20:40 WBC 6.4 RBC 3.22 L Hgb 9.7 L Hct 29.1 L MCV 90.6 MCH 30.2 MCHC 33.4 RDW 19.0 H Plt Count 201 MPV 8.5 Absolute Neuts (auto) 3.2 Neutrophils % 50.2 Lymphocytes % 35.5 Monocytes % 11.7 H Eosinophils % 1.5 Basophils % 1.1 Nucleated RBC % 0 PT with INR INR PTT (Actin FS) Fibrinogen 307.0 Sodium Potassium Chloride Carbon Dioxide Anion Gap BUN Creatinine Creat Clearance w eGFR Random Glucose Calcium Magnesium Total Bilirubin AST ALT Alkaline Phosphatase Total Protein Albumin Blood Type A POSITIVE Antibody Screen Negative 11/27/17 11/27/17 11/27/17 20:40 20:40 20:40 WBC RBC Hgb Hct MCV MCH MCHC RDW Plt Count MPV Absolute Neuts (auto) Neutrophils % Lymphocytes % Monocytes % Eosinophils % Basophils % Nucleated RBC % PT with INR 12.80 INR 1.13 H PTT (Actin FS) 32.0 Fibrinogen 148.0 L D Sodium 143 Potassium 5.0 Chloride 112 H Carbon Dioxide 25 Anion Gap 6 L BUN 34 H Creatinine 1.1 H Creat Clearance w eGFR 47.32 Random Glucose 111 H Calcium 8.6 Magnesium Total Bilirubin 0.5 AST 10 L ALT 12 Alkaline Phosphatase 36 L D Total Protein 6.9 Albumin 4.6 Blood Type Antibody Screen 11/28/17 11/28/17 11/28/17 06:00 06:00 06:00 WBC 4.4 RBC 3.04 L Hgb 9.1 L Hct 27.8 L MCV 91.3 MCH 30.0 MCHC 32.8 RDW 18.9 H Plt Count 174 MPV 8.5 Absolute Neuts (auto) 1.8 Neutrophils % 41.8 L Lymphocytes % 40.1 H Monocytes % 14.3 H Eosinophils % 2.4 Basophils % 1.4 Nucleated RBC % 0 PT with INR 12.80 INR 1.13 H PTT (Actin FS) 30.9 Fibrinogen 161.0 L Sodium Potassium Chloride Carbon Dioxide Anion Gap BUN Creatinine Creat Clearance w eGFR Random Glucose Calcium Magnesium Total Bilirubin AST ALT Alkaline Phosphatase Total Protein Albumin Blood Type Antibody Screen 11/28/17 06:00 WBC RBC Hgb Hct MCV MCH MCHC RDW Plt Count MPV Absolute Neuts (auto) Neutrophils % Lymphocytes % Monocytes % Eosinophils % Basophils % Nucleated RBC % PT with INR INR PTT (Actin FS) Fibrinogen Sodium 143 Potassium 4.6 Chloride 113 H Carbon Dioxide 24 Anion Gap 6 L BUN 29 H Creatinine 0.8 Creat Clearance w eGFR > 60 Random Glucose 85 Calcium 8.2 L Magnesium 2.0 Total Bilirubin 0.4 AST 12 L ALT 12 Alkaline Phosphatase 33 L Total Protein 6.4 Albumin 3.9 Blood Type Antibody Screen Active Medications Generic Name Dose Route Start Last Admin Trade Name Freq PRN Reason Stop Dose Admin Allopurinol 100 mg 11/24/17 10:00 11/28/17 10:16 Zyloprim - PO 100 mg DAILY [facility] Administration Levothyroxine Sodium 75 mcg 11/24/17 07:00 11/28/17 06:20 Synthroid - PO 75 mcg DAILY@0700 [facility] Administration Venlafaxine HCl 75 mg 11/24/17 08:00 11/28/17 10:16 Effexor - PO 75 mg DAILY@0800 [facility] Administration ASSESSMENT/PLAN: Patient is an 82 year old female with a significant past medical history of non- hodgkin's lymphoma: waldenstrom's macroglobulinemia (s/p chemo) and hypothyrodisim. Patient presents to the ED with dizziness, unsteady gait and was found to have an elevated IGM protein of 5900. She was admitted for plasmapharesis and has received 4 sessions since admission. Her right IJ has been removed today. Patient will be monitored overnight and will likely be discharged to tomorrow once cleared by oncology. Heme/Onc: Non-Hodgkin's lymphoma: waldenstrom's macroglobulinemia. Patient admitted for dizziness/unsteady gait and visual defect. Her IgM was elevated @ 5900 on admission. She has received 4 dose of plasmaphresis and her symptoms are now resolved. She denies any dizziness, her gait is steady and no longer having any visual defects. Overall, she has clinically improved with plasmaphresis (received 4 sessions). Her right IJ has been removed. Will order PT to re-evaluate patient before she is discharged. Her IGM levels: 5900 >2453. On allopurinol 10mg daily as per protocol for prevention of tumor lysis. Hematology Anemia likely secondary to underlying malignancy. hmg 9.1. No signs of bleeding , no dyspnea or any other discomfort. Monitor hmg/hct daily or sooner if she develops symptoms. Hematology following. Endocrine: Hypothyroidism: On Synthroid 75mcg daily Renal: SHEFALI, resolved. Encourage PO intake. Electrolytes: Corrected calcium 9.3. monitor electrolytes with daily labs. fen tolerating PO monitor electrolytes good appetite reported, follow up with electronic systems technician ordered prophy: SCDs bilaterally. physical therapy Visit type - Emergency Visit Emergency Visit: Yes ED Registration Date: 11/18/17 Care time: The patient presented to the Emergency Department on the above date and was hospitalized for further evaluation of their emergent condition. - New Patient This patient is new to me today: No - Critical Care Critical Care patient: No - Discharge Referral Referred to [facility] Med P.C.: No
[2017-11-28 11:44] LABS: ANISOCYTOSIS 0; MACROCYTOSIS 0; PLATELET ESTIMATE NORMAL
[2017-11-29] MEDS: LEVOTHYROXINE NA 75 MCG TABLET (FP) PO SCH (06:35)
[2017-11-29 07:17] LABS: BASO % 1.8 % (0-2.0); EOS % 2.4 % (0-4.5); HEMATOCRIT 26.6 % (32.4-45.2); LYMPH % 43.4 % (8-40); MCH 30.6 pg (25.7-33.7); MCHC 33.7 g/dl (32.0-36.0); MEAN PLT VOLUME 8.1 fl (7.5-11.1); MONO % 13.2 % (3.8-10.2); NEUT % 39.2 % (42.8-82.8); PLATELET COUNT 185 K/MM3 (134-434); RBC 2.92 M/mm3 (3.60-5.2)
[2017-11-29 08:01] LABS: ALBUMIN 3.8 g/dl (3.4-5.0); ANION GAP 7 MMOL/L (8-16); BILIRUBIN,TOTAL 0.5 mg/dL (0.2-1.0); BLOOD UREA NITROGEN 24 mg/dL (7-18); CHLORIDE 112 mmol/L (98-107); CO2 26 mmol/L (21-32); GLUCOSE,RANDOM 84 mg/dL (74-106); POTASSIUM 4.6 mmol/L (3.5-5.1); SGOT/AST 12 U/L (15-37); SGPT/ALT 14 U/L (12-78); SODIUM 145 mmol/L (136-145); TOT PROT 6.9 g/dl (6.4-8.2)
[2017-11-29 08:03] LABS: ALK PHOS 41 U/L (45-117); CALCIUM 8.6 mg/dL (8.5-10.1); CREATININE 0.7 mg/dL (0.55-1.02); MAGNESIUM 2.2 mg/dL (1.8-2.4)
[2017-11-29 09:05] LABS: INR 1.04 (0.83-1.09); PROTHROMBIN TIME (PATIENT) 11.8 SEC (9.7-13.0)
[2017-11-29 09:09] LABS: ACTIVATED PTT 29.9 SECONDS (25.2-36.5)
--- NOTE | 2017-11-29 09:22 | PN ---
Teaching Attending Note Name of Resident: Luis Alberto Branham ATTENDING PHYSICIAN STATEMENT I saw and evaluated the patient. I reviewed the resident's note and discussed the case with the resident. I agree with the resident's findings and plan as documented. SUBJECTIVE: Patient is comfortable with no acute distress, no headache, no further dizziness , no shortness of breath, wants to go him. OBJECTIVE: Vital Signs Temperature 98.5 F 11/29/17 05:51 Pulse Rate 69 11/29/17 05:51 Respiratory Rate 18 11/29/17 05:51 Blood Pressure 109/48 11/29/17 05:51 O2 Sat by Pulse Oximetry (%) 98 11/28/17 21:00 CBCD WBC 4.0 K/mm3 (4.0-10.0) 11/29/17 06:00 RBC 2.92 M/mm3 (3.60-5.2) L 11/29/17 06:00 Hgb 9.0 GM/dL (10.7-15.3) L 11/29/17 06:00 Hct 26.6 % (32.4-45.2) L 11/29/17 06:00 MCV 91.0 fl (80-96) 11/29/17 06:00 MCHC 33.7 g/dl (32.0-36.0) 11/29/17 06:00 RDW 19.0 % (11.6-15.6) H 11/29/17 06:00 Plt Count 185 K/MM3 (134-434) 11/29/17 06:00 MPV 8.1 fl (7.5-11.1) 11/29/17 06:00 CMP Sodium 145 mmol/L (136-145) 11/29/17 06:00 Potassium 4.6 mmol/L (3.5-5.1) 11/29/17 06:00 Chloride 112 mmol/L (98-107) H 11/29/17 06:00 Carbon Dioxide 26 mmol/L (21-32) 11/29/17 06:00 Anion Gap 7 MMOL/L (8-16) L 11/29/17 06:00 BUN 24 mg/dL (7-18) H 11/29/17 06:00 Creatinine 0.7 mg/dL (0.55-1.02) 11/29/17 06:00 Creat Clearance w eGFR > 60 (>60) 11/29/17 06:00 Random Glucose 84 mg/dL (74-106) 11/29/17 06:00 Calcium 8.6 mg/dL (8.5-10.1) 11/29/17 06:00 Total Bilirubin 0.5 mg/dL (0.2-1.0) 11/29/17 06:00 AST 12 U/L (15-37) L 11/29/17 06:00 ALT 14 U/L (12-78) 11/29/17 06:00 Alkaline Phosphatase 41 U/L (45-117) L 11/29/17 06:00 Total Protein 6.9 g/dl (6.4-8.2) 11/29/17 06:00 Albumin 3.8 g/dl (3.4-5.0) 11/29/17 06:00 Current Medications Generic Name Dose Route Start Last Admin Trade Name Freq PRN Reason Stop Dose Admin Allopurinol 100 mg 11/24/17 10:00 11/28/17 10:16 Zyloprim - PO 100 mg DAILY [facility] Administration Levothyroxine Sodium 75 mcg 11/24/17 07:00 11/29/17 06:35 Synthroid - PO 75 mcg DAILY@0700 [facility] Administration Venlafaxine HCl 75 mg 11/24/17 08:00 11/28/17 10:16 Effexor - PO 75 mg DAILY@0800 [facility] Administration Home Medications Medication Instructions Recorded Allopurinol [Zyloprim -] 100 mg PO DAILY 10/14/17 Cefpodoxime Proxetil [Vantin -] 100 mg PO Q8H 10/14/17 Levothyroxine Sodium [Levo-T] 75 mcg PO DAILY 10/14/17 Meclizine HCl 25 mg PO TID PRN 10/14/17 Venlafaxine HCl [Effexor -] 75 mg PO DAILY 10/14/17 PE: per resident's note ASSESSMENT AND PLAN: Patient is an 82 year old female with a significant PMHx of Non-hodgkin's lymphoma: waldenstrom's macroglobulinemia (s/p chemo) and hypothyrodisim. Patient presented to the ED with dizziness, unsteady gait and was found to have an elevated IGM protein of 5900. She was admitted for plasmapharesis and has received 4 sessions since admission. #Non-Hodgkin's lymphoma: waldenstrom's macroglobulinemia. Patient improved her symptoms dizziness/unsteady gait and visual defect. Her IgM was elevated @ 5900 on admission --> 2453 . She has received 4 dose of plasmaphresis and her symptoms are now resolved. PT to re-evaluate patient before she is discharged. continue allopurinol 100mg daily as per protocol for prevention of tumor lysis. s/p IJ removal #Anemia due to underlying malignancy. Hgb 9.1. No signs of bleeding, no dyspnea or any other discomfort. Monitor H/H daily. Hem on the case. #Hypothyroidism: On Synthroid 75mcg daily #SHEFALI, resolved. Encourage PO intake. #Corrected calcium 9.3. monitor electrolytes with daily labs. Patient is being discharged home, follow up visit with . within a week.
[2017-11-29] MEDS: VENLAFAXINE HCL 75 MG TABLET PO SCH (10:05)
[2017-11-29] MEDS: ALLOPURINOL 100 MG TABLET (FP) PO SCH (10:05)
--- NOTE | 2017-11-29 13:56 | PN ---
Physical Exam: SUBJECTIVE: Patient seen and examined OBJECTIVE: Vital Signs Period Temp Pulse Resp BP Sys/Francis Pulse Ox Last 24 Hr 98.1 F-98.7 F 69-94 18-20 108-150/48-64 98 GENERAL: The patient is awake, alert, and fully oriented, in no acute distress. HEAD: Normal with no signs of trauma. EYES: PERRL, extraocular movements intact, sclera anicteric, conjunctiva clear. No ptosis. ENT: Ears normal, nares patent, oropharynx clear without exudates, moist mucous membranes. NECK: Trachea midline, full range of motion, supple. LUNGS: Breath sounds equal, clear to auscultation bilaterally, no wheezes, no crackles, no accessory muscle use. HEART: Regular rate and rhythm, S1, S2 without murmur, rub or gallop. ABDOMEN: Soft, nontender, nondistended, normoactive bowel sounds, no guarding, no rebound, no hepatosplenomegaly, no masses. EXTREMITIES: 2+ pulses, warm, well-perfused, no edema. NEUROLOGICAL: Cranial nerves II through XII grossly intact. Normal speech, gait not observed. PSYCH: Normal mood, normal affect. SKIN: Warm, dry, normal turgor, no rashes or lesions noted Laboratory Results - last 24 hr 11/29/17 11/29/17 11/29/17 06:00 06:00 06:00 WBC 4.0 RBC 2.92 L Hgb 9.0 L Hct 26.6 L MCV 91.0 MCH 30.6 MCHC 33.7 RDW 19.0 H Plt Count 185 MPV 8.1 Absolute Neuts (auto) 1.6 Neutrophils % 39.2 L Lymphocytes % 43.4 H Monocytes % 13.2 H Eosinophils % 2.4 Basophils % 1.8 Nucleated RBC % 0 PT with INR 11.80 INR 1.04 PTT (Actin FS) 29.9 Fibrinogen 193.0 L Sodium Potassium Chloride Carbon Dioxide Anion Gap BUN Creatinine Creat Clearance w eGFR Random Glucose Calcium Magnesium Total Bilirubin AST ALT Alkaline Phosphatase Total Protein Albumin 11/29/17 06:00 WBC RBC Hgb Hct MCV MCH MCHC RDW Plt Count MPV Absolute Neuts (auto) Neutrophils % Lymphocytes % Monocytes % Eosinophils % Basophils % Nucleated RBC % PT with INR INR PTT (Actin FS) Fibrinogen Sodium 145 Potassium 4.6 Chloride 112 H Carbon Dioxide 26 Anion Gap 7 L BUN 24 H Creatinine 0.7 Creat Clearance w eGFR > 60 Random Glucose 84 Calcium 8.6 Magnesium 2.2 Total Bilirubin 0.5 AST 12 L ALT 14 Alkaline Phosphatase 41 L Total Protein 6.9 Albumin 3.8 Active Medications Generic Name Dose Route Start Last Admin Trade Name Erasmoq PRN Reason Stop Dose Admin Allopurinol 100 mg 11/24/17 10:00 11/29/17 10:05 Zyloprim - PO 100 mg DAILY [facility] Administration Levothyroxine Sodium 75 mcg 11/24/17 07:00 11/29/17 06:35 Synthroid - PO 75 mcg DAILY@0700 [facility] Administration Venlafaxine HCl 75 mg 11/24/17 08:00 11/29/17 10:05 Effexor - PO 75 mg DAILY@0800 [facility] Administration CBC, BMP 11/29/17 06:00 11/29/17 06:00 ASSESSMENT/PLAN: Patient is an 82 year old female with a significant past medical history of non- hodgkin's lymphoma: waldenstrom's macroglobulinemia (s/p chemo) and hypothyrodisim. Patient presents to the ED with dizziness, unsteady gait and was found to have an elevated IGM protein of 5900. She was admitted for plasmapharesis and has received 4 sessions since admission. Her right IJ has been removed today. Patient will be monitored overnight and will likely be discharged to tomorrow once cleared by oncology. Heme/Onc: Non-Hodgkin's lymphoma: waldenstrom's macroglobulinemia. Patient admitted for dizziness/unsteady gait and visual defect. Her IgM was elevated @ 5900 on admission. She has received 4 dose of plasmaphresis and her symptoms are now resolved. She denies any dizziness, her gait is steady and no longer having any visual defects. Overall, she has clinically improved with plasmaphresis (received 4 sessions). Her right IJ has been removed. Will order PT to re-evaluate patient before she is discharged. Her IGM levels: 5900 >2453. On allopurinol 10mg daily as per protocol for prevention of tumor lysis. Hematology Anemia likely secondary to underlying malignancy. hmg 9.1. No signs of bleeding , no dyspnea or any other discomfort. Monitor hmg/hct daily or sooner if she develops symptoms. Hematology following. Endocrine: Hypothyroidism: On Synthroid 75mcg daily Renal: SHEFALI, resolved. Encourage PO intake. Electrolytes: Corrected calcium 9.3. monitor electrolytes with daily labs. fen tolerating PO monitor electrolytes good appetite reported, follow up with statistician mathematical ordered prophy: SCDs bilaterally. physical therapy
--- NOTE | 2017-11-29 14:42 | PN ---
Progress Note (short form) - Note Progress Note: Patient seen and examined Denies any complaints Asymptomatic Last Vital Signs Temp Pulse Resp BP Pulse Ox 98.5 F 93 H 18 104/53 98 11/29/17 15:02 11/29/17 15:02 11/29/17 15:02 11/29/17 15:02 11/28/17 21:00 Cor: RSR, No murmurs, No gallops Lungs: Clear to P&A Abd: Soft, Normal bowel sounds, No organomegaly Ext:No significant edema Abnormal Lab Results 11/29/17 11/29/17 11/29/17 06:00 06:00 06:00 RBC 2.92 L Hgb 9.0 L Hct 26.6 L RDW 19.0 H Neutrophils % 39.2 L Lymphocytes % 43.4 H Monocytes % 13.2 H Fibrinogen 193.0 L Chloride 112 H Anion Gap 7 L BUN 24 H AST 12 L Alkaline Phosphatase 41 L A/P 82 y/o patient with Waldenstorms macroglobulinemia s/p 4 plasmapheresis PT/PTT/Fibrinogen/Mg/Ca/cbc/cmp acceptable To follow up next week with Dr. Low
[2017-11-29 15:03] VITALS: BP 104/53; PULSE 93; TEMP 98.5
--- NOTE | 2017-11-29 15:31 | DS ---
Physical Exam: SUBJECTIVE: Patient seen and examined at bed side , no acute events over night , stable and asking to go home. OBJECTIVE: Vital Signs Period Temp Pulse Resp BP Sys/Francis Pulse Ox Last 24 Hr 98.1 F-98.7 F 69-94 18-20 104-150/48-64 98 PHYSICAL EXAM GENERAL:AAOx3 in NAD HEAD: NC/AT EYES: PERRL, OUMAR,, sclera anicteric, ENT:MMM NECK: full range of motion, supple. LUNGS: CTA B/L . no wheezes, no crackles, no accessory muscle use. HEART: Regular rate and rhythm, S1, S2 without murmur, rub or gallop. ABDOMEN: Soft, nontender, nondistended, normoactive bowel sounds, no guarding, no rebound, EXTREMITIES: 2+ pulses, warm, well-perfused, no edema. echymoses on left elbow NEUROLOGICAL: no focal deficit . Normal speech, gait not observed. PSYCH: Normal mood, normal affect. SKIN: Warm, dry, LABS Laboratory Results - last 24 hr 11/29/17 11/29/17 11/29/17 06:00 06:00 06:00 WBC 4.0 RBC 2.92 L Hgb 9.0 L Hct 26.6 L MCV 91.0 MCH 30.6 MCHC 33.7 RDW 19.0 H Plt Count 185 MPV 8.1 Absolute Neuts (auto) 1.6 Neutrophils % 39.2 L Lymphocytes % 43.4 H Monocytes % 13.2 H Eosinophils % 2.4 Basophils % 1.8 Nucleated RBC % 0 PT with INR 11.80 INR 1.04 PTT (Actin FS) 29.9 Fibrinogen 193.0 L Sodium Potassium Chloride Carbon Dioxide Anion Gap BUN Creatinine Creat Clearance w eGFR Random Glucose Calcium Magnesium Total Bilirubin AST ALT Alkaline Phosphatase Total Protein Albumin 11/29/17 06:00 WBC RBC Hgb Hct MCV MCH MCHC RDW Plt Count MPV Absolute Neuts (auto) Neutrophils % Lymphocytes % Monocytes % Eosinophils % Basophils % Nucleated RBC % PT with INR INR PTT (Actin FS) Fibrinogen Sodium 145 Potassium 4.6 Chloride 112 H Carbon Dioxide 26 Anion Gap 7 L BUN 24 H Creatinine 0.7 Creat Clearance w eGFR > 60 Random Glucose 84 Calcium 8.6 Magnesium 2.2 Total Bilirubin 0.5 AST 12 L ALT 14 Alkaline Phosphatase 41 L Total Protein 6.9 Albumin 3.8 CBC, BMP 11/29/17 06:00 11/29/17 06:00 HOSPITAL COURSE: Date of Admission:11/18/17 Date of Discharge: 11/29/17 Ms Garza is 82 year old female with a significant past medical history of non -hodgkin's lymphoma: waldenstrom's macroglobulinemia (s/p chemo) and hypothyrodisim. Patient presents to the ED with dizziness, unsteady gait and was found to have an elevated IGM protein of 5900. She was admitted for plasmapharesis and has received 4 sessions since admission. Her right IJ has been removed. Patient will follow as out pt with Dr Devante Cartwright and repeat her cbc within one week.oncology Dr Wood has cleared her. pt also was found to have anemia likely secondary to underlying malignancy. hmg 9.1. No signs of bleeding, no dyspnea or any other discomfort. follow up with lab and hematology as out pt. pt will resume Synthroid 75 mcg for hypothyroidism. pt was found ot have SHEFALI, resolved with IV fluids . Encourage PO intake. if pt develop fever, chills , fatigue, or her symptoms worsen she can return to ED. discharged plan was discussed with the patient and she will be discharged home , she will stay with her granddaughter per pt. Minutes to complete discharge: 45 Discharge Summary Reason For Visit: FOLLICULA LYMPHOMA Condition: Stable - Instructions Diet, Activity, Other Instructions: Follow up with Dr. Julian as an outpatient to have portacath removed. follow up with Dr Low within one week you need to monitor your blood count , repeat blood count within one week with your primary Please follow fall precautions please take your meds as prescribed If you develop fever, chills, lightheadedness, dizziness or your symptoms worsen please call 911 or return to the hospital. Referrals: Chay Low MD [Staff Physician] - 1 Week Dick Julian MD [Staff Physician] - 1 Week Disposition: HOME - Home Medications Comprehensive Discharge Medication List: Ambulatory Orders Allopurinol [Zyloprim -] 100 mg PO DAILY 10/14/17 Levothyroxine Sodium [Levo-T] 75 mcg PO DAILY 10/14/17 Venlafaxine HCl [Effexor -] 75 mg PO DAILY 10/14/17 This patient is new to me today: Yes Date on this admission: 11/29/17 Emergency Visit: Yes ED Registration Date: 11/18/17 Care time: The patient presented to the Emergency Department on the above date and was hospitalized for further evaluation of their emergent condition. Critical Care patient: No - Discharge Referral Referred to [facility] Med P.C.: No
== END 2017-11-29 16:00 | disposition home or self-care (01) | DRG 841 ==
LOC: EDSTATUS 09:52 → J7W 10:10 → JICU 15:14 → J7W 11-23 13:18
PROVIDERS: ADMIT Internal Medicine Hematology & Oncology; ATTEND Internal Medicine
PROC: 6A551Z3 Pheresis of Plasma, Multiple (ICD-10-PCS; principal; 2017-11-18)
PROC: 02H633Z Insertion of Infusion Device into Right Atrium, Percutaneous Approach (ICD-10-PCS; 2017-11-18)
PROC: B244ZZZ Ultrasonography of Right Heart (ICD-10-PCS; 2017-11-18)
PROC: 02HV33Z Insertion of Infusion Device into Superior Vena Cava, Percutaneous Approach (ICD-10-PCS; 2017-11-18)
PROC: B548ZZA Ultrasonography of Superior Vena Cava, Guidance (ICD-10-PCS; 2017-11-18)
PROC: 05PYX3Z Removal of Infusion Device from Upper Vein, External Approach (ICD-10-PCS; 2017-11-28)
DX: C88.0 Waldenstrom macroglobulinemia (principal); C85.90 Non-Hodgkin lymphoma, unspecified, unspecified site; N17.9 Acute kidney failure, unspecified; D63.0 Anemia in neoplastic disease; E03.9 Hypothyroidism, unspecified; H81.399 Other peripheral vertigo, unspecified ear
CPT/HCPCS: 36415; 36430; 71045-TC-FY; 76775-TC; 80048; 80053; 80076; 81003; 82570; 82784; 83735; 84100; 84300; 85025; 85384; 85610; 85730; 85810; 86850; 86900; 86901; 87040; 97116-GP; P9012; P9017